=== PATIENT | female | born 1955 | race Hispanic/Latino ===

== ENCOUNTER 2018-07-24 06:55 | Inpatient (IN) | payer OTHER ==
[2018-07-24] MEDS ORDERED: MAGNE/ALUM HYDROXD 30 ML UCUP ONE (07:35)
[2018-07-24] MEDS ORDERED: NA CHLORIDE 0.9% 500 ML ONE (07:35)
[2018-07-24] MEDS ORDERED: LIDOCAINE VISCOUS 2% SOLN 15 ML UDC ONE (07:35)
[2018-07-24] MEDS ORDERED: ONDANSETRON 4 MG/2 ML VIAL ONE (07:35)
[2018-07-24] MEDS ORDERED: MEPERIDINE HCL 25 MG/0.5 ML ONE ×2 (07:43→09:10)
[2018-07-24 07:47] LABS: Absolute Monocytes 0.8 K/uL (0.1-1.3); Absolute Neutrophil 7.1 K/uL (1.8-8.0); Basophils % 0.6 % (0-1.3); Eosinophils % 1.9 % (0-4.4); Hematocrit 45.6 % (36.0-45.0); Lymphocytes % 19.5 % (15.3-44.8); MPV 11.2 fL (7.6-11.3); RBC Red Blood Cell Count 5.14 M/uL (3.86-4.86)
[2018-07-24 08:29] LABS: ALT/SGPT 33 U/L (12-78); AST/SGOT 31 U/L (15-37); Albumin 3.8 g/dL (3.4-5.0); Alkaline Phosphatase 130 U/L (45-117); BUN Blood Urea Nitrogen 12 mg/dL (7-18); Bicarbonate 27 mmol/L (21-32); Bilirubin Direct 0.2 mg/dL (0-0.2); Bilirubin Total 0.5 mg/dL (0.2-1.0); Glucose Level 111 mg/dL (74-106); Potassium 3.7 mmol/L (3.5-5.1); Sodium Level 139 mmol/L (136-145)
[2018-07-24 08:30] LABS: Lipase > 30000 U/L (73-393)
[2018-07-24 08:34] LABS: Urine Blood 1+ (NEG); Urine Glucose NEGATIVE (NEG); Urine Protein NEGATIVE (NEG); Urine pH 5.5 (5.0-7.0)
--- NOTE | 2018-07-24 09:11 | RAD REPORT ---
EXAM DESCRIPTION: CT - Abdomen Pelvis W Contrast - 07/24/2018 8:47 am CLINICAL HISTORY: Abdominal pain, nausea and vomiting COMPARISON: None. TECHNIQUE: Biphasic, helical CT imaging of the abdomen and pelvis was performed following 100 ml non -ionic IV contrast. No oral contrast. All CT scans are performed using dose optimization technique as appropriate and may include automated exposure control or mA/KV adjustment according to patient size. FINDINGS: No suspicious findings in the lung bases. Minimal hiatal hernia is present. Liver and spleen show no suspicious findings. Gallbladder is distended with mild prominence of the ga llbladder pham. Stones can be occult on CT imaging. No biliary tree dilatation identified. Moderate severity peripancreatic fluid and inflammatory stranding are present. No pseudo cyst or natalie d mass of the pancreas identifiable. Fluid is present along the anterior renal fascia and minimally a long the distal duodenum. Symmetric renal function is seen with no hydronephrosis or suspicious renal mass. No pyelonephritis o r acute parenchymal process. No bladder abnormalities. No adrenal abnormality. Uterus is absent. Ovar ies are absent or atrophic. No gastric dilatation or wall thickening. There is minimal secondary involvement of the duodenum. Rem ainder of the small bowel unremarkable. No acute colon process. No free air, free fluid or inflammat ory stranding. No mass or bulky lymphadenopathy. Patient has a small fat only umbilical hernia and a small fat only left inguinal hernia. No suspicious bony findings. IMPRESSION: Moderate severity acute pancreatitis without abscess, mass or pseudocyst identifiable. Mild secondary involvement of the duodenum and possible gallstones. Biliary tree is not dilated.
[2018-07-24] MEDS ORDERED: MORPHINE 4 MG/ML SYR ONE (09:46)
[2018-07-24] MEDS ORDERED: NA CHLORIDE 0.9% 100 ML IV ONE (09:58)
[2018-07-24] MEDS ORDERED: CEFTRIAXONE/SWI 1gm 1 GM/10 ML SYR ONE (09:58)
--- NOTE | 2018-07-24 09:58 | RAD REPORT ---
EXAM DESCRIPTION: US - Abdomen Exam Limited - 07/24/2018 9:29 am CLINICAL HISTORY: Abdominal pain COMPARISON: CT study July 24 FINDINGS: Gallbladder size is normal. Multiple small gallstones are identifiable. There is a small a mount of sludge as well. Common bile duct is 6 mm, normal range, with no common duct stone identified . Gallbladder wall is upper normal. Trace amount of pericholecystic fluid seen. IMPRESSION: Multi stone cholelithiasis with slight wall thickening and trace pericholecystic fluid. No duct stone or biliary tree dilatation identified. Given the pancreatitis findings, gallstone pancr eatitis would be a consideration even if there is nonvisualization of a duct stone.
[2018-07-24] MEDS ORDERED: METRONIDAZOLE 500mg IVPB 500 MG/100 ML BAG IV ONE (09:59)
[2018-07-24] MEDS ORDERED: NA CHLORIDE 0.9% 1,000 ML ONE (10:46)
[2018-07-24] MEDS ORDERED: PROMETHAZINE 25 MG/ML VIAL ONE (11:01)
--- NOTE | 2018-07-24 11:10 | ER ---
Nurse's Notes [facility] Name: Jeannine Michele Age: 62 yrs Sex: Female : 1955 Arrival Date: 07/24/2018 Time: 07:02 Bed 7 Private MD: Diagnosis: Acute pancreatitis;Gallstone pancreatitis Presentation: 07/24 07:03 Presenting complaint: Patient states: upper abd pain with nausea/vomiting x 2 days ago. aa5 07:03 Transition of care: patient was not received from another setting of care. Onset of aa5 symptoms was July 2018. Risk Assessment: Do you want to hurt yourself or someone else? Patient reports no desire to harm self or others. Care prior to arrival: None. 07:03 Method Of Arrival: Ambulatory aa5 07:03 Acuity: MJ 3 aa5 Historical: - Allergies: 07:09 No Known Allergies; aa5 - PMHx: 07:09 Hypertension; aa5 - PSHx: 07:09 Hysterectomy; aa5 - Immunization history:: Adult Immunizations unknown. - Social history:: Smoking status: Patient/guardian denies using tobacco. - Ebola Screening: : No symptoms or risks identified at this time. - Family history:: not pertinent. - Hospitalizations: : No recent hospitalization is reported. Screenin:49 Abuse screen: Denies threats or abuse. Denies injuries from another. Nutritional ch screening: No deficits noted. Tuberculosis screening: No symptoms or risk factors identified. Fall Risk None identified. Assessment: 07:20 General: Appears distressed, uncomfortable, Behavior is cooperative, appropriate for age, anxious, restless. Pain: Complains of pain in epigastric area, right upper quadrant and left upper quadrant Pain radiates to back Pain currently is 10 out of 10 on a pain scale. Pain began gradually, 2-3 days ago. 07:20 Neuro: No deficits noted. Cardiovascular: Heart tones S1 S2 present. Respiratory: Airway is patent Respiratory effort is even, unlabored, Breath sounds are clear bilaterally. GI: Abdomen is obese, Pt is actively vomiting Bowel sounds present X 4 quads. Abd is soft X 4 quads Abdomen is tender to palpation in epigastric area, umbilical area, right upper quadrant and left upper quadrant. : No signs and/or symptoms were reported regarding the genitourinary system. Derm: Skin is intact, Skin is diaphoretic, Skin is pale, Skin temperature is cool. Musculoskeletal: No signs and/or symptoms reported regarding the musculoskeletal system. 07:48 Reassessment: Patient appears in no apparent distress at this time. Patient and/or ch family updated on plan of care and expected duration. Pain level reassessed. Patient is alert, oriented x 3, equal unlabored respirations, skin warm/dry/pink. Patient states feeling better. Patient states symptoms have improved. 08:29 Reassessment: Patient appears in no apparent distress at this time. Patient and/or ch family updated on plan of care and expected duration. Pain level reassessed. Patient is alert, oriented x 3, equal unlabored respirations, skin warm/dry/pink. Patient states feeling better. Patient states symptoms have improved. 09:30 Reassessment: Patient appears in no apparent distress at this time. Patient and/or ch family updated on plan of care and expected duration. Pain level reassessed. pt c/o increase in pain. medicated per orders. 10:01 Reassessment: Patient appears in no apparent distress at this time. Patient and/or ch family updated on plan of care and expected duration. Pain level reassessed. Patient is alert, oriented x 3, equal unlabored respirations, skin warm/dry/pink. pt verb understanding of transfer to hospital with GI Patient states feeling better. 10:41 Reassessment: Patient appears in no apparent distress at this time. Patient and/or ch family updated on plan of care and expected duration. Pain level reassessed. PT MEDICATED FOR BLOOD PRESSURE. PT REQUESTS MORE PAIN MEDICATION, PT BP IS 90/52. erp NOTIFIED, NO NEW ORDERS. NO NARCOTIC WILL BE GIVEN TILL BP IMPROVES. 12:18 Reassessment: Patient appears in no apparent distress at this time. Patient and/or ch family updated on plan of care and expected duration. Pain level reassessed. Patient is alert, oriented x 3, equal unlabored respirations, skin warm/dry/pink. 12:19 Reassessment: Patient appears in no apparent distress at this time. No changes from previously documented assessment. 12:58 Reassessment: Patient appears in no apparent distress at this time. No changes from previously documented assessment. Vital Signs: 07:09 Weight 96.62 kg (R); Pain 9/10; aa5 07:10 BP 156 / 89; Pulse 96; Resp 24; Temp 98.6; Pulse Ox 99% on R/A; Pain 10/10; ch 07:49 BP 110 / 58; Pulse 60; Resp 14; Pulse Ox 99% on R/A; ch 08:30 BP 98 / 71; Pulse 58; Resp 12; Pulse Ox 97% on R/A; Pain 5/10; ch 09:30 BP 127 / 84; Pulse 70; Resp 16; Pulse Ox 97% on R/A; Pain 10/10; ch 10:02 BP 115 / 77; Pulse 56; Resp 12; Temp 99(O); Pulse Ox 95% on R/A; Pain 7/10; ch 10:41 BP 90 / 52; Pulse 64; Resp 18; Temp 98.8(O); Pulse Ox 96% on R/A; Pain 9/10; ch 12:19 BP 110 / 62; Pulse 58; Resp 14; Temp 98.5; Pulse Ox 97% on R/A; Pain 8/10; ch ED Course: 07:02 Patient arrived in ED. rg4 07:03 Arm band placed on Patient placed in an exam room, on a stretcher. aa5 07:04 Lopez Gamble MD is Attending Physician. rn 07:09 Triage completed. aa5 07:20 No provider procedures requiring assistance completed. Inserted saline lock: 20 gauge ch in right forearm, using aseptic technique. Blood collected. 07:23 Janet Munson, RN is Primary Nurse. ch 07:31 Patient has correct armband on for positive identification. Placed in gown. Bed in low mh5 position. Call light in reach. Side rails up X 1. Warm blanket given. Pulse ox on. NIBP on. 07:31 Urine collected: clean catch specimen, clear. mh5 07:35 EKG done, by computer hardware technician. reviewed by Lopez Gamble MD. at1 07:49 Cool cloth applied. Verbal reassurance given. ch 07:51 No apparent distress. Resting quietly. ch 08:47 CT completed. Patient tolerated procedure well. Patient moved to CT via stretcher. jg6 Patient moved back from CT. 08:48 CT Abd/Pelvis - W/Contrast In Process Unspecified. EDMS 09:29 US Abdomen Limited In Process Unspecified. EDMS 09:52 contacted [facility] in attempt to transfer pt, was informed by dandy nobles that they have no beds at this time. 10:24 contacted [facility] in attempt to transfer pt, was informed by roberto loco that they had no beds at this time. 10:39 contacted [facility] in attempt to transfer pt, was informed by nava garcia that bd they have no beds at this time. 11:09 Eron Stokes DO is Hospitalizing Provider. rn 12:46 Inserted. aa5 12:58 Patient admitted, IV remains in place. ch Administered Medications: 07:25 Drug: Zofran 4 mg Route: IVP; Site: right forearm; ch 08:31 Follow up: Response: No adverse reaction; Marked relief of symptoms ch 07:30 Drug: NS 0.9% 500 ml Route: IV; Rate: bolus; Site: right forearm; ch 07:53 Follow up: IV Status: Completed infusion; IV Intake: 500ml ch 07:35 Drug: Demerol 25 mg Route: IVP; Site: right forearm; ch 07:56 Follow up: Response: No adverse reaction; Pain is decreased ch 07:57 Drug: GI Cocktail without - (Maalox Suspension 30 ml, Lidocaine Liquid 2 % 15 ch ml) Route: PO; 08:30 Follow up: Response: No adverse reaction; Marked relief of symptoms ch 09:11 Drug: Demerol 25 mg Route: IVP; Site: right forearm; ch 09:38 Follow up: Response: No adverse reaction; Marked relief of symptoms ch 09:38 Drug: morphine 4 mg Route: IVP; Site: right forearm; ch 10:00 Follow up: Response: No adverse reaction ch 09:59 Drug: Rocephin - (cefTRIAXone) 1 grams Route: IVPB; Infused Over: 30 mins; Site: right ch forearm; 10:32 Follow up: IV Status: Completed infusion; IV Intake: 50ml ch 10:31 Drug: Flagyl 500 mg Volume: 100 ml; Route: IVPB; Rate: 200 ml/hr; Infused Over: 30 ch mins; Site: right forearm; 12:21 Follow up: IV Status: Completed infusion; IV Intake: 1000ml ch 10:41 Drug: NS 0.9% 1000 ml Route: IV; Rate: 1000 ml; Site: right forearm; ch 12:21 Follow up: IV Status: Completed infusion; IV Intake: 100ml ch 10:57 Drug: Phenergan 12.5 mg Route: IVP; Site: right forearm; 12:21 Follow up: Response: No adverse reaction; Marked relief of symptoms ch Intake: 07:53 IV: 500ml; Total: 500ml. ch 10:32 IV: 50ml; Total: 550ml. ch 12:21 IV: 100ml; Total: 650ml. ch 12:21 IV: 1000ml; Total: 1650ml. Outcome: 11:10 Decision to Hospitalize by Provider. rn 12:25 Admitted to Med/surg accompanied by tech, via wheelchair, room 402, with chart, Report ch called to Felicitas Haines 12:25 Condition: stable 12:25 Instructed on the need for admit. 12:58 Patient left the ED. Signatures: Dispatcher [employer] EDMS Pamela Arboleda Christina, RN RN Lopez Gamble MD MD rn Calderon, Audri, RN RN aa5 Roxie Morales, [employer] EKG [facility]1 Akosua Guerrero4 Juju Cartagena 5 Irais Guerrero jg6 Corrections: (The following items were deleted from the chart) 07:51 07:20 No apparent distress. Resting quietly. [facility]
--- NOTE | 2018-07-24 11:10 | EDPHYS ---
Physician Documentation [facility] Name: Jeannine Michele Age: 62 yrs Sex: Female : 1955 Arrival Date: 07/24/2018 Time: 07:02 Bed 7 Private MD: ED Physician Lopez Gamble HPI: 07/24 07:10 This 62 yrs old Female presents to ER via Ambulatory with complaints of rn Abdominal Pain. 07:10 The patient presents with abdominal pain in the upper abdomen. Onset: The rn symptoms/episode began/occurred 2 day(s) ago. The symptoms do not radiate. Associated signs and symptoms: Pertinent positives: nausea and vomiting, diarrhea, Pertinent negatives: blood in stools, chest pain, fever, shortness of breath. Modifying factors: The symptoms are alleviated by nothing, the symptoms are aggravated by touching the area. Severity of pain: At its worst the pain was moderate in the emergency department the pain is unchanged. The patient has experienced similar episodes in the past. The patient has not recently seen a physician. Reports 2-3 days of upper abd pain, assoc with nausea and vomiting, began with diarrhea after started maalox, no fever, reports has had this multiple times in past and has been told is gastritis, reports today is one of the bad episodes, able to keep soup down. Reports has had gallbladder removed in past. . Historical: - Allergies: 07:09 No Known Allergies; aa5 - PMHx: 07:09 Hypertension; aa5 - PSHx: 07:09 Hysterectomy; aa5 - Immunization history:: Adult Immunizations unknown. - Social history:: Smoking status: Patient/guardian denies using tobacco. - Ebola Screening: : No symptoms or risks identified at this time. - Family history:: not pertinent. - Hospitalizations: : No recent hospitalization is reported. ROS: 07:10 Constitutional: Negative for fever, chills, and weight loss, Eyes: Negative for injury, rn pain, redness, and discharge, Cardiovascular: Negative for chest pain, palpitations, and edema, Respiratory: Negative for shortness of breath, cough, wheezing, and pleuritic chest pain, Abdomen/GI: + abd pain and nausea/vomiting/diarrhea MS/Extremity: Negative for injury and deformity, Skin: Negative for injury, rash, and discoloration, Neuro: Negative for headache, weakness, numbness, tingling, and seizure. Exam: 07:10 Constitutional: This is a well developed, well nourished patient who is awake, alert, rn tearful Head/Face: Normocephalic, atraumatic. ENT: MMM Cardiovascular: tachycardic, regular, no murmur Respiratory: Lungs have equal breath sounds bilaterally, clear to auscultation. No increased work of breathing, no retractions or nasal flaring. Abdomen/GI: soft, mild epigastric and RUQ tenderness, no rebound Skin: Warm, dry with normal turgor. Normal color with no rashes, no lesions, and no evidence of cellulitis. MS/ Extremity: Pulses equal, no cyanosis. Neurovascular intact. Full, normal range of motion. Equal circumference. Neuro: Awake and alert, GCS 15, oriented to person, place, time, and situation. Cranial nerves II-XII grossly intact. Motor strength 5/5 in all extremities. Sensory grossly intact. Cerebellar exam normal. Normal gait. Vital Signs: 07:09 Weight 96.62 kg (R); Pain 9/10; aa5 07:10 BP 156 / 89; Pulse 96; Resp 24; Temp 98.6; Pulse Ox 99% on R/A; Pain 10/10; ch 07:49 BP 110 / 58; Pulse 60; Resp 14; Pulse Ox 99% on R/A; ch 08:30 BP 98 / 71; Pulse 58; Resp 12; Pulse Ox 97% on R/A; Pain 5/10; ch 09:30 BP 127 / 84; Pulse 70; Resp 16; Pulse Ox 97% on R/A; Pain 10/10; ch 10:02 BP 115 / 77; Pulse 56; Resp 12; Temp 99(O); Pulse Ox 95% on R/A; Pain 7/10; ch 10:41 BP 90 / 52; Pulse 64; Resp 18; Temp 98.8(O); Pulse Ox 96% on R/A; Pain 9/10; ch 12:19 BP 110 / 62; Pulse 58; Resp 14; Temp 98.5; Pulse Ox 97% on R/A; Pain 8/10; ch MDM: 07:04 Patient medically screened. rn 09:47 ED course: COnsulted with Dr. Cartagena, requests transfer given no GI, and gallstone rn pancreatitis, likely needs ERCP. Abx ordered, pain improved. . 10:27 Differential diagnosis: cholecystitis, Cholelithiasis, non-specific abd pain, rn pancreatitis. Data reviewed: vital signs, nurses notes, lab test result(s), radiologic studies, CT scan, ultrasound, and as a result, I will admit patient. Counseling: I had a detailed discussion with the patient and/or guardian regarding: the historical points, exam findings, and any diagnostic results supporting the discharge/admit diagnosis, lab results, radiology results, the need for further work-up and treatment in the hospital, the need to transfer to another facility, [facility] does not immediately have the required specialist. Response to treatment: the patient's symptoms have mildly improved after treatment, and as a result, I will admit patient. ED course[facility] left message with Dr. Fox here, now trying [facility].. 11:07 ED course: [facility] at capacity, unable to transfer, contacted Dr. Fox who is willing to rn consult on patient, MRCP ordered, notified Dr. Cartagena of admission as well as Dr. Stokes. . 07/24 07:08 Order name: Basic Metabolic Panel; Complete Time: 08:35 rn 07/24 07:08 Order name: CBC with Diff; Complete Time: 07:57 rn 07/24 07:08 Order name: Hepatic Function; Complete Time: 08:35 rn 07/24 07:08 Order name: Lipase; Complete Time: 08:35 rn 07/24 07:32 Order name: Troponin (emerg Dept Use Only); Complete Time: 08:35 rn 07/24 08:02 Order name: Urine Dipstick--Ancillary (enter results); Complete Time: 08:56 bd 07/24 07:08 Order name: CT Abd/Pelvis - W/Contrast; Complete Time: 09:15 rn 07/24 08:02 Order name: Urine --Ancillary (enter results); Complete Time: 08:56 bd 07/24 09:16 Order name: US Abdomen Limited; Complete Time: 10:00 rn 07/24 10:50 Order name: Cholangiogram EDMS 07/24 07:08 Order name: IV Saline Lock; Complete Time: 08:33 rn 07/24 07:08 Order name: Labs collected and sent; Complete Time: 08: rn 07/24 07:08 Order name: EKG; Complete Time: : rn 07/24 07:08 Order name: EKG - Nurse/Tech; Complete Time: 07:53 rn Administered Medications: 07:25 Drug: Zofran 4 mg Route: IVP; Site: right forearm; ch 08:31 Follow up: Response: No adverse reaction; Marked relief of symptoms ch 07:30 Drug: NS 0.9% 500 ml Route: IV; Rate: bolus; Site: right forearm; ch 07:53 Follow up: IV Status: Completed infusion; IV Intake: 500ml ch 07:35 Drug: Demerol 25 mg Route: IVP; Site: right forearm; ch 07:56 Follow up: Response: No adverse reaction; Pain is decreased ch 07:57 Drug: GI Cocktail without - (Maalox Suspension 30 ml, Lidocaine Liquid 2 % 15 ch ml) Route: PO; 08:30 Follow up: Response: No adverse reaction; Marked relief of symptoms ch 09:11 Drug: Demerol 25 mg Route: IVP; Site: right forearm; ch 09:38 Follow up: Response: No adverse reaction; Marked relief of symptoms ch 09:38 Drug: morphine 4 mg Route: IVP; Site: right forearm; ch 10:00 Follow up: Response: No adverse reaction ch 09:59 Drug: Rocephin - (cefTRIAXone) 1 grams Route: IVPB; Infused Over: 30 mins; Site: right ch forearm; 10:32 Follow up: IV Status: Completed infusion; IV Intake: 50ml ch 10:31 Drug: Flagyl 500 mg Volume: 100 ml; Route: IVPB; Rate: 200 ml/hr; Infused Over: 30 ch mins; Site: right forearm; 12:21 Follow up: IV Status: Completed infusion; IV Intake: 1000ml ch 10:41 Drug: NS 0.9% 1000 ml Route: IV; Rate: 1000 ml; Site: right forearm; ch 12:21 Follow up: IV Status: Completed infusion; IV Intake: 100ml ch 10:57 Drug: Phenergan 12.5 mg Route: IVP; Site: right forearm; ch 12:21 Follow up: Response: No adverse reaction; Marked relief of symptoms ch Disposition: 07/24/18 11:10 Hospitalization ordered by Eron Stokes for Inpatient Admission. Preliminary diagnosis are Acute pancreatitis, Gallstone pancreatitis. - Bed requested for Telemetry/MedSurg (Inpatient). - Status is Inpatient Admission. ch - Condition is Stable. - Problem is new. - Symptoms have improved. UTI on Admission? No Signatures: Dispatcher [employer] EDMS Janet Munson RN RN Lopez Gamble MD MD rn Calderon, Audri, RN RN [facility] Nubia Pineda RN RN df Corrections: (The following items were deleted from the chart) 11:31 11:10 Hospitalization Ordered by Eron Stokes DO for Inpatient Admission. Preliminary df diagnosis is Acute pancreatitis; Gallstone pancreatitis. Bed requested for Telemetry/MedSurg (Inpatient). Status is Inpatient Admission. Condition is Stable. Problem is new. Symptoms have improved. UTI on Admission? No. rn 11:42 11:31 07/24/2018 11:10 Hospitalization Ordered by Eron Stokes DO for Inpatient df Admission. Preliminary diagnosis is Acute pancreatitis; Gallstone pancreatitis. Bed requested for Telemetry/MedSurg (Inpatient). Status is Inpatient Admission. Condition is Stable. Problem is new. Symptoms have improved. UTI on Admission? No. df 12:58 11:42 07/24/2018 11:10 Hospitalization Ordered by Eron Stokes DO for Inpatient ch Admission. Preliminary diagnosis is Acute pancreatitis; Gallstone pancreatitis. Bed requested for Telemetry/MedSurg (Inpatient). Status is Inpatient Admission. Condition is Stable. Problem is new. Symptoms have improved. UTI on Admission? No. df
--- NOTE | 2018-07-24 11:36 | P.HP ---
Certification for Inpatient Patient admitted to: Inpatient With expected LOS: >2 Midnights Patient will require the following post-hospital care: None Practitioner: I am a practitioner with admitting privileges, knowledge of patient current condition, hospital course, and medical plan of care. Services: Services provided to patient in accordance with Admission requirements found in Title 42 Section 412.3 of the Code of Federal Regulations Patient History Date of Service: 07/24/18 Primary Care Provider: [facility] in [place], [place] Reason for admission: Abdominal pain, nausea and vomiting History of Present Illness: 62-year-old female presented to the emergency room with abdominal pain , nausea and vomiting. Patient reports abdominal pain to the epigastric and right upper quadrant region. Pain was severe that started last night. She reports pain to the area from time to time over the past several months. She reported increased nausea and vomiting. No fever or chills identified. She was not able to tolerate oral intake. She came to the ER for further evaluation. In the ER patient was evaluated. CT scan shows moderate severity acute pancreatitis without abscess. Mild secondary involvement of the duodenum and possible gallstones identified. Abdominal ultrasound shows multi stone cholelithiasis with slight wall thickening and trace cruz cholecystic fluid. No duct stone or biliary tree dilation identified. MRCP pending. Case discussed at length with surgery and ER physician. Initially the patient was to be transferred due to lack of GI coverage. Transfer was not successful. The case was further discussed with local GI who was not shuttle preparation supervisor. He agreed to evaluate and treat the patient. Therefore transfer will be terminated. Patient to be admitted for further evaluation and treatment. Case discussed with surgery. Home medications list reviewed: Yes - Past Medical/Surgical History Diabetic: Yes -: Diabetes mellitus type 2, non-insulin dependent -: Hypertension -: Obesity -: Hysterectomy Psychosocial/ Personal History: Patient is . She has 3 children. She does not work. - Family History Sister -: Diabetes - Social History Smoking Status: Never smoker Alcohol use: No CD- Drugs: No Caffeine use: Yes Place of Residence: Home Review of Systems General: As per HPI Eyes: Unremarkable ENT: Unremarkable Respiratory: Unremarkable Cardiovascular: Unremarkable Gastrointestinal: Nausea, Vomiting, Abdominal Pain, As per HPI Genitourinary: Unremarkable Musculoskeletal: Unremarkable Integumentary: Unremarkable Neurological: Unremarkable Lymphatics: Unremarkable Physical Examination - Physical Exam General: Alert, Oriented x3, Cooperative, Mild distress HEENT: Atraumatic, Normocephalic, PERRLA, Mucous membr. moist/pink Neck: Supple Respiratory: Clear to auscultation bilaterally, Normal air movement Cardiovascular: Normal pulses, Regular rate/rhythm Gastrointestinal: Normal bowel sounds, Soft and benign, Non-distended, No masses , No rebound, No guarding, Tenderness (Pain to the epigastric and right upper quadrant region) Musculoskeletal: No erythema, No tenderness, No warmth Integumentary: No tenderness/swelling, No erythema, No warmth, No cyanosis Neurological: Normal speech, Normal strength at 5/5 x4 extr, Normal tone, Normal affect - Studies Laboratory Data (last 24 hrs) 07/24/18 07:31: WBC 10.2, Hgb 15.2 H, Hct 45.6 H, Plt Count 269 07/24/18 07:31: Sodium 139, Potassium 3.7, BUN 12, Creatinine 0.77, Glucose 111 H, Total Bilirubin 0.5, AST 31, ALT 33, Alkaline Phosphatase 130 H, Lipase > 56393 H Assessment and Plan - Plan Impression: Epigastric/right upper quadrant abdominal pain, nausea and vomiting with noted multi stone cholelithiasis,cholecystitis, and pancreatitis without abscess, suspect gallstone pancreatitis Diabetes mellitus type 2, qcy-xenrdiy-gxugpvdao Hypertension Obesity GERD with hiatal hernia Plan: Epigastric/right upper quadrant abdominal pain, nausea and vomiting with noted multi stone cholelithiasis,cholecystitis, and pancreatitis without abscess, suspect gallstone pancreatitis: Patient will be admitted for further evaluation and treatment. MRCP is to be obtained. Patient may require ERCP if positive. Case discussed with GI and surgery. Patient to be started on IV antibiotic therapy-Flagyl and Cipro. Blood cultures obtained. Will keep the patient NPO. Will provide medication for pain and nausea. Will continue monitor patient closely. Await MRCP findings. Will monitor electrolytes closely. Will check fasting lipid panel. Await further recommendations from surgery and GI. Diabetes mellitus type 2, ouf-sdxkxzp-ljmiotvtm: Will place on insulin sliding scale. Hypertension: Will provide IV medication as needed. Obesity: Will evaluate BMI. GERD with hiatal hernia: Will continue with Pepcid IV. Discharge Plan: Home Plan to discharge in: Greater than 2 days - Advance Directives Does patient have a Living Will: No Does patient have a Durable POA for Healthcare: No - Code Status/Comfort Care Code Status Assessed: Yes (Patient full code.) Time Spent Managing Pts Care (In Minutes): 55
[2018-07-24] MEDS: INSULIN -REGULAR HUMAN 50 UNIT/0.5 ML ML SQ SCH ×2 (12:57→17:53)
[2018-07-24] MEDS ORDERED: NA CHLORIDE 0.9% 1,000 ML IV SCH (12:57)
[2018-07-24] MEDS ORDERED: HYDRALAZINE HCL 20 MG/ML VIAL IV PRN (12:57)
--- NOTE | 2018-07-24 13:26 | EKG ---
Test Date: 2018-07-24 Test Time: 07:21:48 Bilingual Hr Generalist: YESSY MEASUREMENT RESULTS: Intervals: Rate: 79 AR: 136 QRSD: 76 QT: 382 QTc: 438 Branch: P: 34 AR: 136 QRS: -20 T: -8 INTERPRETIVE STATEMENTS: Normal sinus rhythm Voltage criteria for left ventricular hypertrophy Nonspecific ST and T wave abnormality Abnormal ECG No previous ECG available for comparison Electronically Signed On 07-24-18 13:25:49 PHARMACY TECHNICIAN ASSISTANT by Abraham Redd
[2018-07-24 14:04] LABS: Thyroid Stimulating Hormone 0.47 uIU/mL (0.360-3.740)
--- NOTE | 2018-07-24 14:53 | RAD REPORT ---
EXAM DESCRIPTION: MRI - Cholangiogram - 07/24/2018 2:34 pm CLINICAL HISTORY: evaluate for gallstone pancreatitis COMPARISON: Abdomen Pelvis W Contrast dated 07/24/2018; Abdomen Exam Limited dated 07/24/2018 FINDINGS: Three-dimensional MRCP was performed using maximum intensity projection reconstruction on the same work station. No intrahepatic biliary tree dilatation is seen. The common bile duct is normal caliber without evide nce of retained stone, stricture or mass. The pancreatic duct is not pathologically dilated. Gallbladder contains multiple stones. Limited T2 sequences through the abdomen demonstrates moderate periappendiceal inflammatory changes a nd fluid. . IMPRESSION: Cholelithiasis. No significant biliary tree abnormality. Moderate peripancreatic inflammation and fluid noted.
[2018-07-24] MEDS: MORPHINE 4 MG/ML SYR IV PRN ×3 (15:03→23:26)
[2018-07-24] MEDS: ONDANSETRON 4 MG/2 ML VIAL IV PRN ×2 (15:03→19:00)
[2018-07-24 15:36] LABS: Urine Appearance CLEAR; Urine Bilirubin NEGATIVE (NEG); Urine Blood NEGATIVE (NEG); Urine Color YELLOW; Urine Glucose NEGATIVE (NEG); Urine Protein NEGATIVE (NEG); Urine Urobilinogen 0.2 mg/dL (0.2-1.0)
[2018-07-24 15:41] VITALS: BMI 5680.2
[2018-07-24 15:51] LABS: Urine Microscopic Reflex NO UMIC
[2018-07-24] MEDS: METRONIDAZOLE 500mg IVPB 500 MG/100 ML BAG IV SCH (17:20)
[2018-07-24] MEDS: NA CHLORIDE 0.9% 1,000 ML IV SCH ×2 (19:00→23:25)
[2018-07-24] MEDS ORDERED: MORPHINE 4 MG/ML SYR IV PRN (20:36)
[2018-07-24] MEDS: FAMOTIDINE 20 MG/2 ML VIAL IV SCH (21:03)
[2018-07-24] MEDS: CIPROFLOXACIN 400mg IV 400 MG/200 ML BAG IV SCH (21:04)
[2018-07-25] MEDS: NA CHLORIDE 0.9% 1,000 ML IV SCH ×5 (00:49→21:40)
[2018-07-25] MEDS: METRONIDAZOLE 500mg IVPB 500 MG/100 ML BAG IV SCH ×3 (01:06→16:45)
--- NOTE | 2018-07-25 01:42 | CON ---
Date of Consultation: 07/24/2018 Diagnoses: Epigastric pain and pancreatitis. History Of Present Illness: This is the case of a 62-year-old patient who came this morning complain ing of epigastric pain associated with nausea, vomiting, and diarrhea. She denies any dysuria, hemat uria, hematochezia, or melena. Denies any recent traveling out of the country. Denies any family me mber sick at home. Initially, the patient was having some diarrhea. She took some Maalox, but did n ot improve her condition. Allergies: NONE. Medical History: None. Surgical History: Hysterectomy. Social History: She does not smoke. She does not drink alcohol or use any other drugs. Allergies: NONE. Review of Systems: Ten points otherwise unremarkable. Physical Examination: General: The patient is awake and alert. HEENT: Pupils are equal and reactive, anicteric. Neck: Supple. Chest: Clear. Abdomen: Epigastric tenderness. No guarding. No rebound. Pelvic/Breast/Rectal: Deferred. Extremities: Good capillary refill. Laboratory Data: Blood work shows WBC count of 10.2, hemoglobin of 15.2, and platelets of 269. Chem istry shows total bilirubin normal limits, AST and ALT normal limits. Lipase over 30,000. Glucose 1 57. Imaging Procedures: CAT scan of abdomen and pelvis shows lsnajhgn-gr-acetgo acute pancreatitis witho ut abscess or cyst. The biliary tree is not dilated. MRCP shows cholelithiasis. No evidence of sto ne in the common bile duct. No stricture or masses. Normal-caliber common bile duct as per Dr. Jorge deras. The patient shows pancreatitis. Assessment: This is a 62-year-old patient with pancreatitis of unknown etiology. The patient has bi lirubin normal. The patient has no stones in the common bile duct. We were trying to find out and t rying to rule out with her the differential diagnosis of pancreatitis. She has some stones in the ga llbladder that may be done electively, but no acute evidence of stones in the common bile duct that m ay cause pancreatitis. Whenever the pancreatitis improves with IV hydration and intestinal rest and pancreas rest, then she may consider in the future an elective cholecystectomy. ROWDY/MODL Voice ID: [id number] Report ID: [id number]
[2018-07-25] MEDS: MORPHINE 4 MG/ML SYR IV PRN ×9 (02:02→23:25)
[2018-07-25 04:08] LABS: Absolute Lymphocytes (CBC) 0.5 K/uL (0.7-4.9); Absolute Monocytes 1.2 K/uL (0.1-1.3); Absolute Neutrophil 20.5 K/uL (1.8-8.0); Basophils % 0.2 % (0-1.3); Hematocrit 46.7 % (36.0-45.0); Lymphocytes % 2.1 % (15.3-44.8); MPV 11.2 fL (7.6-11.3); Monocytes % 5.3 % (3.3-12.3); RBC Red Blood Cell Count 5.28 M/uL (3.86-4.86)
[2018-07-25 04:55] LABS: Blood Morphology Comment NOT SEEN (NOT SEEN); Platelet Estimate ADEQ
[2018-07-25 04:56] LABS: ALT/SGPT 39 U/L (12-78); AST/SGOT 22 U/L (15-37); Albumin 3.2 g/dL (3.4-5.0); Alkaline Phosphatase 118 U/L (45-117); BUN Blood Urea Nitrogen 12 mg/dL (7-18); Bicarbonate 27 mmol/L (21-32); Bilirubin Total 0.5 mg/dL (0.2-1.0); Glucose Level 140 mg/dL (74-106); HDL Cholesterol 58 mg/dL (40-60); LDL Cholesterol, Calculated 114 (<130); Lipase 3003 U/L (73-393); Magnesium 2.3 mg/dL (1.8-2.4); Potassium 3.1 mmol/L (3.5-5.1); Protein, Total 6.9 g/dL (6.4-8.2); Sodium Level 141 mmol/L (136-145)
[2018-07-25] MEDS: INSULIN -REGULAR HUMAN 50 UNIT/0.5 ML ML SQ SCH ×4 (06:00→18:00)
[2018-07-25] MEDS: FAMOTIDINE 20 MG/2 ML VIAL IV SCH ×2 (08:00→23:30)
[2018-07-25] MEDS: CIPROFLOXACIN 400mg IV 400 MG/200 ML BAG IV SCH (10:21)
[2018-07-25] MEDS: ONDANSETRON 4 MG/2 ML VIAL IV PRN ×2 (10:30→21:23)
--- NOTE | 2018-07-25 12:48 | RAD REPORT ---
EXAM DESCRIPTION: RAD - Chest Single View - 07/25/2018 12:43 pm CLINICAL HISTORY: Elevated white blood cell count COMPARISON: None. TECHNIQUE: AP portable chest image was obtained 1240 hours . FINDINGS: Lung volumes are low accentuating heart, vasculature and lung markings. Right base opacifi cation is present suspicious for pneumonia. Mild failure or volume overload could be masked. Cardiac silhouette is enlarged by portable technique and shallow inspiration. No pneumothorax or large pleura l effusion. No acute bony abnormality seen. No acute aortic findings suspected. IMPRESSION: Right lung base pneumonia.
--- NOTE | 2018-07-25 13:03 | P.PN ---
Subjective Date of Service: 07/25/18 Primary Care Provider: [facility] in [place], [place] Chief Complaint: Abdominal pain, nausea and vomiting Subjective: Other (Still with pain but improved. Some nausea) Physical Examination - Vital Signs Temperature: 98.8 F Blood Pressure: 146/80 Pulse: 107 Respirations: 18 Pulse Ox (%): 93 - Physical Exam General: Alert, In no apparent distress, Oriented x3, Cooperative HEENT: Atraumatic Neck: Supple Respiratory: Clear to auscultation bilaterally, Normal air movement Cardiovascular: Normal pulses, Regular rate/rhythm Gastrointestinal: Normal bowel sounds, Soft and benign, Non-distended, Tenderness (to the epigastric region) Musculoskeletal: No tenderness, No warmth Integumentary: No erythema, No warmth, No cyanosis Neurological: Normal speech, Normal strength at 5/5 x4 extr, Normal tone, Normal affect - Studies Medications List Reviewed: Yes Assessment & Plan Discharge Plan: Home Plan to discharge in: Greater than 2 days Physician Review Additional Text: Impression: Epigastric/right upper quadrant abdominal pain, nausea and vomiting with noted multi stone cholelithiasis,cholecystitis, and pancreatitis without abscess Right base pneumonia possible aspiration Diabetes mellitus type 2, pea-icdegjs-ziptwfpdb Hypertension Obesity GERD with hiatal hernia Plan: Epigastric/right upper quadrant abdominal pain, nausea and vomiting with noted multi stone cholelithiasis, cholecystitis, and pancreatitis without abscess: Patient slightly improved. Will keep the patient NPO. MRCP reviewed. Will continue with IV fluids. Continue with pain control and medication for nausea. Will discuss further with GI and surgery. Patient currently on Cipro and Flagyl. Continue to monitor lipase. Right base pneumonia suspect aspiration: IV Zosyn added. Will maintain sats above 90%. Will continue to monitor closely. Diabetes mellitus type 2, vof-dvnqjhj-gsjylnoov: Will continue with insulin sliding scale. Hypertension: Will provide IV medication as needed. Obesity: Will evaluate BMI. GERD with hiatal hernia: Will continue with Pepcid IV. Time Spent Managing Pts Care (In Minutes): 55
[2018-07-25] MEDS: PIPER/TAZO/NS 3.375gm 3.375 GM/100 ML BAG IVPB SCH ×2 (13:48→16:46)
[2018-07-25 14:36] LABS: Urine Appearance CLEAR; Urine Blood TRACE (NEG); Urine Color ORANGE; Urine Glucose NEGATIVE (NEG); Urine Protein 1+ (NEG); Urine Specific Gravity >=1.030 (1.005-1.030); Urine Urobilinogen 0.2 mg/dL (0.2-1.0); Urine pH 5.5 (5.0-7.0)
[2018-07-25 14:54] LABS: Urine Bilirubin 1+ (NEG); Urine Microscopic Reflex ORDER UMIC
[2018-07-25 15:02] LABS: Urine Bacteria <20 /HPF (<20)
[2018-07-25 15:03] LABS: Urine Culture Reflex Order NOT NEEDED; Urine Mucus 2+ /HPF (NONE SEEN)
[2018-07-25] MEDS: ENOXAPARIN 40 MG/0.4 ML SQ SCH (16:46)
--- NOTE | 2018-07-25 21:29 | PN ---
Date of Progress Note: 07/25/2018 Diagnosis: Pancreatitis. History Of Present Illness: The patient was doing a little bit better. No vomiting and no fever, al though states some nausea. Physical Examination: General: Awake and alert. HEENT: Pupils anicteric. Neck: Supple. Abdomen: Still epigastric tenderness, a little bit better than yesterday, although it is still there . Extremities: Good capillary refill. Laboratory Data: Blood work shows a decrease in lipase. White blood cell count is elevated. MRCP r shaneiewed with the patient. We have no common bile duct abnormalities to justify any blockage of the p ancreas, at least radiologically per . . Total bilirubin also today is normal. We have some gallstones in the gallbladder, it will be addressed when the pancreatitis is resolved, although we still have to find the etiology of this pancreatitis. We will check for, also from a recent panc reatitis including triglyceride. Once again, she does not smoke. She has not taken . She does not drink alcohol. ROWDY/DAVINA Voice ID: [id number] Report ID: [id number]
[2018-07-26] MEDS: MORPHINE 4 MG/ML SYR IV PRN ×3 (01:53→06:54)
[2018-07-26] MEDS: NA CHLORIDE 0.9% 1,000 ML IV SCH ×5 (01:54→20:19)
[2018-07-26] MEDS: PIPER/TAZO/NS 3.375gm 3.375 GM/100 ML BAG IVPB SCH ×2 (01:54→10:01)
[2018-07-26] MEDS: METRONIDAZOLE 500mg IVPB 500 MG/100 ML BAG IV SCH ×3 (01:54→18:19)
[2018-07-26] MEDS: INSULIN -REGULAR HUMAN 50 UNIT/0.5 ML ML SQ SCH ×4 (06:00→18:00)
[2018-07-26 06:10] LABS: Absolute Lymphocytes (CBC) 0.5 K/uL (0.7-4.9); Absolute Monocytes 1.3 K/uL (0.1-1.3); Absolute Neutrophil 27.9 K/uL (1.8-8.0); Basophils % 0.3 % (0-1.3); Hematocrit 50.4 % (36.0-45.0); Lymphocytes % 1.6 % (15.3-44.8); MPV 10.8 fL (7.6-11.3); Monocytes % 4.2 % (3.3-12.3); RBC Red Blood Cell Count 5.62 M/uL (3.86-4.86)
[2018-07-26] MEDS ORDERED: KETOROLAC 30 MG/ML INJ IV PRN (06:12)
[2018-07-26 06:25] LABS: ALT/SGPT 23 U/L (12-78); AST/SGOT 11 U/L (15-37); Albumin 2.4 g/dL (3.4-5.0); Alkaline Phosphatase 87 U/L (45-117); BUN Blood Urea Nitrogen 17 mg/dL (7-18); Bicarbonate 28 mmol/L (21-32); Bilirubin Total 1.1 mg/dL (0.2-1.0); Glucose Level 130 mg/dL (74-106); Lipase 980 U/L (73-393); Magnesium 2.3 mg/dL (1.8-2.4); Potassium 3.2 mmol/L (3.5-5.1); Protein, Total 5.9 g/dL (6.4-8.2); Sodium Level 136 mmol/L (136-145)
[2018-07-26] MEDS ORDERED: HYDROMORPHONE HCL 1 MG/ML INJ IV ONE (07:00)
[2018-07-26 07:51] LABS: Blood Morphology Comment NOT SEEN (NOT SEEN); Urine White Blood Cell Casts OK
[2018-07-26 07:52] LABS: Platelet Estimate ADEQ
[2018-07-26] MEDS ORDERED: NA CHLORIDE 0.9% 500 ML IV ONE (08:05)
--- NOTE | 2018-07-26 09:43 | P.PN ---
Subjective Date of Service: 07/26/18 Primary Care Provider: [facility] in [place], [place] Chief Complaint: Abdominal pain, nausea and vomiting Subjective: Other (Heart rate slightly elevated this morning. T-max 100.3 yesterday at 8:00 a.m.. Patient with abdominal pain. Patient desires to drink something. No significant nausea vomiting. Increased anxiety.) Physical Examination - Vital Signs Temperature: 97.5 F Blood Pressure: 120/75 Pulse: 155 Respirations: 20 Pulse Ox (%): 90 - Physical Exam General: Alert, In no apparent distress, Oriented x3, Cooperative, Other (Some anxiety noted.) HEENT: Atraumatic, Other (Dry mucous membranes.) Neck: Supple Respiratory: Clear to auscultation bilaterally, Normal air movement Cardiovascular: Abnormal pulses (Sinus tachycardia) Gastrointestinal: Hypoactive, Soft and benign, Non-distended, Tenderness (Pain to the epigastric region) Musculoskeletal: No erythema, No tenderness, No warmth Integumentary: No tenderness/swelling, No erythema, No warmth, No cyanosis Neurological: Normal speech, Normal strength at 5/5 x4 extr, Normal tone, Abnormal affect (Increased anxiety.) Lymphatics: No axilla or inguinal lymphadenopathy - Studies Medications List Reviewed: Yes Assessment & Plan Discharge Plan: Home Plan to discharge in: Greater than 2 days Physician Review Additional Text: Impression: Epigastric/right upper quadrant abdominal pain, nausea and vomiting with noted multi stone cholelithiasis,cholecystitis, and pancreatitis without abscess Right base pneumonia possible aspiration Diabetes mellitus type 2, pft-hlkhwat-fwnphjtcj Hypertension Obesity, BMI 39.5 GERD with hiatal hernia Anxiety Plan: Epigastric/right upper quadrant abdominal pain, nausea and vomiting with noted multi stone cholelithiasis, cholecystitis, and pancreatitis without abscess: Patient with increased pain this morning. Will change morphine to Dilaudid. Heart rate slightly elevated. Will provide 500 saline bolus. Will continue with aggressive IV fluids. Antibiotics adjusted yesterday. Patient now on Zosyn and Flagyl. Case discussed at length with GI today. Since lipase levels improved GI recommends to try ice chips. Will also provide medication for anxiety. Will continue to reassess and monitor closely. Case discussed with patient and family. Will consult infectious disease to further evaluate possible need for IV antibiotic change due to elevated white count. Lactic acid normal. Will follow up on chest x-ray and KUB. Will discuss with surgery as well. Continue with medical management at this time. No surgical intervention recommended at this time as per surgery. Continue to monitor electrolytes and lipase levels. Right base pneumonia suspect aspiration: Patient on IV Zosyn. Will maintain sats above 90%. Will recheck chest x-ray today. Will consult infectious disease for further recommendation. Encourage incentive spirometer. Will continue to monitor closely. Diabetes mellitus type 2, wiw-jkpuufh-lxuhclicn: Will continue with insulin sliding scale. Hypertension: Will provide IV medication as needed. Obesity, BMI 39.5: Will address lifestyle modification education at discharge GERD with hiatal hernia: Will continue with Pepcid IV. Anxiety: Will provide medication as needed. Time Spent Managing Pts Care (In Minutes): 55
[2018-07-26] MEDS: LORazepam 2 MG/ML VIAL IV PRN ×2 (09:56→18:17)
[2018-07-26] MEDS: FAMOTIDINE 20 MG/2 ML VIAL IV SCH ×3 (10:02→20:15)
--- NOTE | 2018-07-26 10:32 | RAD REPORT ---
EXAM DESCRIPTION: Loli Single View07/26/2018 10:22 am CLINICAL HISTORY: Chest pain COMPARISON: July 25 2017 FINDINGS: Mild improvement in a right basilar opacity. Minimal left lung opacity. The heart is kamla l size IMPRESSION: Mild improvement in a right basilar opacity consistent with atelectasis
--- NOTE | 2018-07-26 10:37 | RAD REPORT ---
EXAM DESCRIPTION: RAD - Abdomen 1 View (KUB) - 07/26/2018 10:22 am CLINICAL HISTORY: pancreatitis, evaluate for ileus Pain COMPARISON: Abdomen Pelvis W Contrast dated 07/24/2018 FINDINGS: The bowel gas pattern is non-obstructive. No evidence of free air or pneumatosis. No suspi cious calcifications. No significant bony findings. IMPRESSION: Negative examination.
[2018-07-26] MEDS: HYDROMORPHONE HCL 1 MG/ML INJ IV PRN ×4 (11:49→23:41)
[2018-07-26] MEDS: Meropenem 1,000 MG in NA CHLORIDE 0.9% 100 ML IV SCH ×2 (16:19→23:46)
[2018-07-26] MEDS: ENOXAPARIN 40 MG/0.4 ML SQ SCH (16:22)
[2018-07-26] MEDS ORDERED: Meropenem 1000 MG/VIAL IV SCH (17:00)
--- NOTE | 2018-07-26 17:13 | CON ---
History Of Present Illness: This is a 62-year-old female coming in with pancreatitis. The patient h as significant history of reflux. The patient's initial CT scan showed no abscess and no pseudocyst. Past Medical History: She has significant history of diabetes mellitus, hypertension, obesity, and h ysterectomy. Social History: Nonsmoker, nondrinker. Family History: Noncontributory. Medications: Zosyn and Flagyl. See MARs for other medication. Allergies: NO KNOWN DRUG ALLERGIES. CONTINUES TO HAVE ABDOMINAL DISCOMFORT WITH HIGH WHITE BLOOD CELL COUNT. THE PATIENT DENIES ANY NAUS EA OR VOMITING. SHE HAS BEEN CONSTIPATED FOR LAST 3 DAYS AND UNABLE TO PASS GAS AT THIS TIME. ZANDRA NUES TO HAVE DISCOMFORT AND GETTING DILAUDID FOR THAT. Review of Systems: A 10-point review was performed. Physical Examination: General: This is a 62-year-old lady, lying in the bed, in moderate distress because of abdominal rob n. Vital Signs: Temperature 97.5, pulse 108, respirations 18, and blood pressure 122/73. HEENT: Unremarkable. Neck: Supple. Lungs: Basal crackles. Heart: S1 and S2, regular. Abdomen: Distended. Bowel sounds present, but sluggish. Epigastric tenderness and guarding noted. Extremity: No edema. Laboratory Data: Shows WBC 29,700, hemoglobin 16.2, and platelets are 177. Chemistry shows sodium 1 36, potassium 3.2, chloride 103, bicarb 28, BUN 17, creatinine 0.5, glucose is 130, lipase is 980, pr ocalcitonin is 1.64, albumin is 2.4. Assessment And Plan: Pancreatitis with elevated lipase and leukocytosis, the patient with hypoalbumi nemia with protein calorie malnourishment, obesity, most likely due to obstructive stone. Continue a ntibiotic. We will discontinue Zosyn and start the patient on meropenem. Continue Flagyl and monito r the patient closely. Repeat blood culture. Follow the patient closely. Thank you Dr. Stokes and Dr. Cartagena for consult. NF/MODL Voice ID: [id number] Report ID: [id number]
--- NOTE | 2018-07-26 18:30 | P.PN ---
Subjective Date of Service: 07/26/18 Primary Care Provider: [facility] in [place], [place] Chief Complaint: Abdominal pain, nausea and vomiting, pancreatitis, RLL pneumonia, sepsis Subjective: Improving (CXR today shows clearing / improvement since last night. She still has ARABELLA pain. Family has been trying to get her to use incentive spirometry. ID has been consulted with recs. She reports being very thirsty. Lipase has decreased to < 1,000 (at > 30,000 on admission).) Review of Systems 10-point ROS is otherwise unremarkable Respiratory: Pleuritic Pain Gastrointestinal: Abdominal Pain (slowly improving) Physical Examination - Vital Signs Temperature: 99.0 F Blood Pressure: 131/73 Pulse: 117 Respirations: 20 Pulse Ox (%): 94 - Physical Exam General: Alert, Oriented x3, Cooperative, Disheveled, Mild distress HEENT: Atraumatic, Normocephalic, PERRLA, EOMI Neck: Supple Respiratory: Diminished Cardiovascular: Normal pulses Gastrointestinal: Tenderness (and obese) Neurological: Normal speech, Normal strength at 5/5 x4 extr - Studies Medications List Reviewed: Yes Assessment And Plan - Current Problems (Diagnosis) (1) Gallstone pancreatitis Current Visit: Yes Status: Acute (2) Cholelithiasis Current Visit: Yes Status: Acute (3) Epigastric abdominal pain Current Visit: Yes Status: Acute (4) RLL pneumonia Current Visit: Yes Status: Acute (5) Diabetes mellitus, type 2 Onset Date: 07/25/18 Current Visit: Yes Status: Acute (6) Hypertension Onset Date: 07/25/18 Current Visit: Yes Status: Acute (7) Nausea & vomiting Onset Date: 07/25/18 Current Visit: Yes Status: Acute (8) Right upper quadrant abdominal pain Onset Date: 07/25/18 Current Visit: Yes Status: Acute (9) Sepsis Current Visit: Yes Status: Acute - Plan REC: 1) IV antibiotics as per ID consult 2) monitor labs 3) continue incentive spirometry and f/u CXRs 4) continue IVFs and prn pain medications / anti-emetics 5) allow ice, water, and juice Physician Review Additional Text: Impression: Epigastric/right upper quadrant abdominal pain, nausea and vomiting with noted multi stone cholelithiasis,cholecystitis, and pancreatitis without abscess Right base pneumonia possible aspiration Diabetes mellitus type 2, blc-smxpxng-youmidmrj Hypertension Obesity, BMI 39.5 GERD with hiatal hernia Anxiety Plan: Epigastric/right upper quadrant abdominal pain, nausea and vomiting with noted multi stone cholelithiasis, cholecystitis, and pancreatitis without abscess: Patient with increased pain this morning. Will change morphine to Dilaudid. Heart rate slightly elevated. Will provide 500 saline bolus. Will continue with aggressive IV fluids. Antibiotics adjusted yesterday. Patient now on Zosyn and Flagyl. Case discussed at length with GI today. Since lipase levels improved GI recommends to try ice chips. Will also provide medication for anxiety. Will continue to reassess and monitor closely. Case discussed with patient and family. Will consult infectious disease to further evaluate possible need for IV antibiotic change due to elevated white count. Lactic acid normal. Will follow up on chest x-ray and KUB. Will discuss with surgery as well. Continue with medical management at this time. No surgical intervention recommended at this time as per surgery. Continue to monitor electrolytes and lipase levels. Right base pneumonia suspect aspiration: Patient on IV Zosyn. Will maintain sats above 90%. Will recheck chest x-ray today. Will consult infectious disease for further recommendation. Encourage incentive spirometer. Will continue to monitor closely. Diabetes mellitus type 2, pju-lmlbszi-eiquaonyg: Will continue with insulin sliding scale. Hypertension: Will provide IV medication as needed. Obesity, BMI 39.5: Will address lifestyle modification education at discharge GERD with hiatal hernia: Will continue with Pepcid IV. Anxiety: Will provide medication as needed.
--- NOTE | 2018-07-26 19:37 | PN ---
Date of Progress Note: 07/26/2018 Diagnosis: Pancreatitis. History: The patient feels a little bit better, although is still nauseous with epigastric pain. Et iology of the pancreatitis is still unclear. She does not smoke. She does not drink alcohol. There are no stones in common bile duct. Triglycerides were not elevated. So the medical doctors continu e without treatment. In the meantime, she has some support. Objective: Chest: Bilateral breath sounds. Abdomen: Epigastric tenderness. The rest of the abdomen is soft and depressible. Extremities: Good capillary refill. Laboratory Data: Lipase is still elevated, although better than before. In this case, it is 980 and she came here with more than 30,000. The WBC count though is constant from 22 to 29. Recommendation: I had discussion from the primary doctor and the ID doctor yesterday about the antib iotic coverage, and they believe they are on the right track on those. She has no fever today. She does not look septic either. From the surgical standpoint, the patient will be treated medically. W e have not seen any abscess or cyst before. In the next several hours or days, CAT scan done may jo ann ehow give us some progress on the disease, if clinically she does not improve and the white count jareth ps getting elevated. If pancreas becomes an issue, she may be transferred to a tertiary center to a pancreatic surgeon, if we come to that point. ROWDY/DAVINA Voice ID: [id number] Report ID: [id number]
[2018-07-26] MEDS: HYDROMORPHONE HCL 0.5 MG/0.5 ML INJ IV PRN (20:02)
[2018-07-27] MEDS: METRONIDAZOLE 500mg IVPB 500 MG/100 ML BAG IV SCH ×3 (01:16→17:52)
[2018-07-27] MEDS: LORazepam 2 MG/ML VIAL IV PRN ×2 (02:14→10:57)
[2018-07-27] MEDS: HYDROMORPHONE HCL 1 MG/ML INJ IV PRN ×3 (03:39→21:45)
[2018-07-27] MEDS: NA CHLORIDE 0.9% 1,000 ML IV SCH ×2 (03:48→19:00)
[2018-07-27] MEDS: KETOROLAC 30 MG/ML INJ IV PRN ×2 (05:47→16:19)
[2018-07-27 05:49] LABS: Absolute Lymphocytes (CBC) 0.4 K/uL (0.7-4.9); Basophils % 0.3 % (0-1.3); Hematocrit 39.5 % (36.0-45.0); Lymphocytes % 1.7 % (15.3-44.8); MPV 11.3 fL (7.6-11.3); Monocytes % 4.4 % (3.3-12.3); RBC Red Blood Cell Count 4.42 M/uL (3.86-4.86)
[2018-07-27] MEDS: INSULIN -REGULAR HUMAN 50 UNIT/0.5 ML ML SQ SCH ×4 (06:00→17:55)
[2018-07-27 06:18] LABS: ALT/SGPT 19 U/L (12-78); AST/SGOT 9 U/L (15-37); Albumin 2.2 g/dL (3.4-5.0); Alkaline Phosphatase 74 U/L (45-117); BUN Blood Urea Nitrogen 11 mg/dL (7-18); Bicarbonate 28 mmol/L (21-32); Bilirubin Total 0.7 mg/dL (0.2-1.0); Glucose Level 109 mg/dL (74-106); Lipase 309 U/L (73-393); Magnesium 2.2 mg/dL (1.8-2.4); Potassium 3.1 mmol/L (3.5-5.1); Protein, Total 5.6 g/dL (6.4-8.2); Sodium Level 139 mmol/L (136-145)
--- NOTE | 2018-07-27 08:33 | RAD REPORT ---
EXAM DESCRIPTION: RAD - Chest Single View - 07/27/2018 5:42 am CLINICAL HISTORY: Right-sided PICC line placement A preliminary report was provided at the time of the study and reviewed prior to final report. COMPARISON: July 26 TECHNIQUE: AP portable chest image was obtained 0537 hours . FINDINGS: Lung volumes are low. Bilateral lung base opacification matches comparison. Right-sided PI CC line overlies the right atrium. Cardiac silhouette remains enlarged. No pneumothorax. IMPRESSION: Right-sided PICC line with the tip in the right atrium.
--- NOTE | 2018-07-27 08:34 | RAD REPORT ---
EXAM DESCRIPTION: RAD - Chest Single View - 07/27/2018 7:28 am CLINICAL HISTORY: Right-sided PICC line placement an adjustment COMPARISON: July 27 TECHNIQUE: AP portable chest image was obtained 0719 hours . FINDINGS: Tip of the PICC line is now in the distal SVC. Pleural and parenchymal findings have not c hanged. Heart size has not changed. IMPRESSION: Right upper extremity PICC line with the tip in the distal SVC.
--- NOTE | 2018-07-27 09:21 | P.PN ---
Subjective Date of Service: 07/27/18 Primary Care Provider: [facility] Clinic in [place], [place] Chief Complaint: Abdominal pain, nausea and vomiting, pancreatitis, RLL pneumonia, sepsis Subjective: Improving (No abdominal pain noted. No nausea. She did not sleep well last night. Increased anxiety.) Physical Examination - Vital Signs Temperature: 98.4 F Blood Pressure: 138/90 Pulse: 120 Respirations: 20 Pulse Ox (%): 96 - Physical Exam General: Alert, In no apparent distress, Oriented x3, Cooperative, Other ( Increased anxiety) HEENT: Atraumatic Neck: Supple Respiratory: Clear to auscultation bilaterally, Normal air movement Cardiovascular: Abnormal pulses (Sinus tachycardia mild and improved) Gastrointestinal: Hypoactive (But improved), Soft and benign, Non-distended, No tenderness (No pain noted.), No masses, No rebound, No guarding Musculoskeletal: No erythema, No tenderness, No warmth Integumentary: No tenderness/swelling, No erythema, No warmth, No cyanosis Neurological: Normal speech, Normal strength at 5/5 x4 extr, Normal tone, Abnormal affect (Increased anxiety) - Studies Medications List Reviewed: Yes Assessment & Plan Discharge Plan: Home Plan to discharge in: 72 Hours Physician Review Additional Text: Impression: Epigastric/right upper quadrant abdominal pain, nausea and vomiting with noted multi stone cholelithiasis,cholecystitis, and pancreatitis without abscess Right base pneumonia possible aspiration Diabetes mellitus type 2, [id number] Hypertension Obesity, BMI 39.5 GERD with hiatal hernia Anxiety Plan: Epigastric/right upper quadrant abdominal pain, nausea and vomiting with noted multi stone cholelithiasis, cholecystitis, and pancreatitis without abscess: Patient without pain this morning. Patient has tolerated ice chips. Lipase level within normal range. IV antibiotics adjusted yesterday with improved leukocytosis. Will discuss with GI today about the possibility of advancing her diet to clear liquids. Encourage ambulation and incentive spirometer. Patient now on Meropenem and Flagyl as per infectious disease recommendation. No need for TPN at this time. Will hold off on this. Continue with aggressive IV fluids. Will provide medication for anxiety. Will discuss with surgery. Anticipate improvement over the next 2-4 days. I will turn the service over to Dr. Ingram tomorrow. I will go over the plan of care with her. Right base pneumonia suspect aspiration: Patient on now on IV meropenem and Flagyl as per infectious disease. Will maintain sats above 90%. X-ray showed improvement yesterday. Patient improved. Patient not requiring oxygen. Encourage incentive spirometer. Will continue to monitor closely. Diabetes mellitus type 2, [id number]: Will continue with insulin sliding scale. Hypertension: Will provide IV medication as needed. Obesity, BMI 39.5: Will address lifestyle modification education at discharge GERD with hiatal hernia: Will continue with Pepcid IV. Anxiety: Will provide medication as needed. Time Spent Managing Pts Care (In Minutes): 55
[2018-07-27] MEDS: Meropenem 1,000 MG in NA CHLORIDE 0.9% 100 ML IV SCH ×2 (09:26→17:50)
[2018-07-27] MEDS: FAMOTIDINE 20 MG/2 ML VIAL IV SCH ×2 (09:27→21:45)
[2018-07-27] MEDS ORDERED: IPRATROPIUM BROM 0.5MG/2.5ML NEB PRN (10:59)
[2018-07-27] MEDS ORDERED: NA CHLORIDE 0.9% 1,000 ML IV SCH (12:00)
[2018-07-27] MEDS: HYDROMORPHONE HCL 0.5 MG/0.5 ML INJ IV PRN (12:04)
[2018-07-27] MEDS ORDERED: POTASSIUM CL 40 MEQ in NA CHLORIDE 0.9% 500 ML IV SCH (14:00)
--- NOTE | 2018-07-27 14:20 | P.PN ---
Subjective Date of Service: 07/27/18 Primary Care Provider: [facility] Clinic in [place], [place] Chief Complaint: Abdominal pain, nausea and vomiting, pancreatitis, RLL pneumonia, sepsis Subjective: Improving (Less abdominal pain and less chest pain with deep breathing. She states she is hungry today.) Review of Systems 10-point ROS is otherwise unremarkable Respiratory: Pleuritic Pain (improved) Gastrointestinal: Abdominal Pain (improved) Physical Examination - Vital Signs Temperature: 99.3 F Blood Pressure: 128/76 Pulse: 113 Respirations: 20 Pulse Ox (%): 93 - Physical Exam General: Alert, Oriented x3, Cooperative, Mild distress HEENT: Atraumatic, Normocephalic, PERRLA, EOMI Neck: Supple Respiratory: Diminished Cardiovascular: Normal pulses Gastrointestinal: No rebound, Tenderness (improved), Guarding (improved) Neurological: Normal speech, Normal strength at 5/5 x4 extr - Studies Medications List Reviewed: Yes Assessment And Plan - Current Problems (Diagnosis) (1) Gallstone pancreatitis Current Visit: Yes Status: Acute Comment: Improved. Lipase normal today at 309, on admission at > 30,000 (2) Cholelithiasis Current Visit: Yes Status: Acute (3) Epigastric abdominal pain Current Visit: Yes Status: Acute (4) RLL pneumonia Current Visit: Yes Status: Acute Comment: Improved with decreased chest pain with deep breathing and decreased WBC from 29 to 22K. (5) Diabetes mellitus, type 2 Onset Date: 07/25/18 Current Visit: Yes Status: Acute (6) Hypertension Onset Date: 07/25/18 Current Visit: Yes Status: Acute (7) Nausea & vomiting Onset Date: 07/25/18 Current Visit: Yes Status: Acute Comment: Improved. (8) Right upper quadrant abdominal pain Onset Date: 07/25/18 Current Visit: Yes Status: Acute (9) Sepsis Current Visit: Yes Status: Acute Comment: Improved. - Plan REC: 1) IV antibiotics as per ID consult 2) monitor labs 3) continue incentive spirometry and f/u CXRs 4) continue IVFs and prn pain medications / anti-emetics 5) CL diet Physician Review Additional Text: Impression: Epigastric/right upper quadrant abdominal pain, nausea and vomiting with noted multi stone cholelithiasis,cholecystitis, and pancreatitis without abscess Right base pneumonia possible aspiration Diabetes mellitus type 2, [id number]-[id number] Hypertension Obesity, BMI 39.5 GERD with hiatal hernia Anxiety Plan: Epigastric/right upper quadrant abdominal pain, nausea and vomiting with noted multi stone cholelithiasis, cholecystitis, and pancreatitis without abscess: Patient without pain this morning. Patient has tolerated ice chips. Lipase level within normal range. IV antibiotics adjusted yesterday with improved leukocytosis. Will discuss with GI today about the possibility of advancing her diet to clear liquids. Encourage ambulation and incentive spirometer. Patient now on Meropenem and Flagyl as per infectious disease recommendation. No need for TPN at this time. Will hold off on this. Continue with aggressive IV fluids. Will provide medication for anxiety. Will discuss with surgery. Anticipate improvement over the next 2-4 days. I will turn the service over to Dr. Ingram tomorrow. I will go over the plan of care with her. Right base pneumonia suspect aspiration: Patient on now on IV meropenem and Flagyl as per infectious disease. Will maintain sats above 90%. X-ray showed improvement yesterday. Patient improved. Patient not requiring oxygen. Encourage incentive spirometer. Will continue to monitor closely. Diabetes mellitus type 2, [id number]-[id number]: Will continue with insulin sliding scale. Hypertension: Will provide IV medication as needed. Obesity, BMI 39.5: Will address lifestyle modification education at discharge GERD with hiatal hernia: Will continue with Pepcid IV. Anxiety: Will provide medication as needed.
[2018-07-27] MEDS: KCL 20 MEQ/100 mL IVPB 20 MEQ/100 ML BAG IV SCH ×2 (14:34→17:53)
--- NOTE | 2018-07-27 16:49 | RAD REPORT ---
EXAM DESCRIPTION: RAD - Chest Single View - 07/27/2018 4:18 pm CLINICAL HISTORY: Pneumonia COMPARISON: July 27 TECHNIQUE: AP portable chest image was obtained 1519 hours . FINDINGS: Lung volumes remain low. PICC line has not changed positioning. Bilateral lung base opacif ication is similar to comparison. Findings are worse on the right. No progression from examination ea rlier in the day. Heart and vasculature are normal. No pneumothorax. No acute bony abnormality seen. No acute aortic findings suspected. IMPRESSION: Shallow inspiration chest film with bilateral lung base opacification worse on the right . Findings are stable from earlier in the day.
[2018-07-27] MEDS ORDERED: FUROSEMIDE 20 MG/ 2ML VIAL IV ONE (17:41)
[2018-07-27] MEDS: ACETAMINOPHEN 500 MG TAB PO PRN (17:42)
[2018-07-27] MEDS: ENOXAPARIN 40 MG/0.4 ML SQ SCH (17:50)
[2018-07-27] MEDS: ACETAMINOPHEN 650MG/RECT SUPP PR PRN (17:54)
[2018-07-28] MEDS: NA CHLORIDE 0.9% 1,000 ML IV SCH ×4 (00:44→20:20)
[2018-07-28] MEDS: METRONIDAZOLE 500mg IVPB 500 MG/100 ML BAG IV SCH ×3 (00:44→16:18)
[2018-07-28] MEDS: KCL 20 MEQ/100 mL IVPB 20 MEQ/100 ML BAG IV SCH ×3 (01:05→04:56)
[2018-07-28] MEDS: Meropenem 1,000 MG in NA CHLORIDE 0.9% 100 ML IV SCH ×3 (01:23→16:26)
[2018-07-28] MEDS: HYDROMORPHONE HCL 1 MG/ML INJ IV PRN ×5 (02:12→22:07)
[2018-07-28] MEDS: ACETAMINOPHEN 650MG/RECT SUPP PR PRN (03:27)
[2018-07-28] MEDS: KETOROLAC 30 MG/ML INJ IV PRN ×3 (04:56→20:05)
[2018-07-28] MEDS: INSULIN -REGULAR HUMAN 50 UNIT/0.5 ML ML SQ SCH ×4 (06:00→18:00)
[2018-07-28 06:11] LABS: Absolute Lymphocytes (CBC) 0.5 K/uL (0.7-4.9); Absolute Monocytes 1.3 K/uL (0.1-1.3); Absolute Neutrophil 16.5 K/uL (1.8-8.0); Basophils % 0.1 % (0-1.3); Eosinophils % 0.2 % (0-4.4); Hematocrit 37.1 % (36.0-45.0); Lymphocytes % 2.8 % (15.3-44.8); MPV 11.2 fL (7.6-11.3); Monocytes % 6.9 % (3.3-12.3); RBC Red Blood Cell Count 4.16 M/uL (3.86-4.86)
[2018-07-28 09:48] LABS: ALT/SGPT 16 U/L (12-78); AST/SGOT 8 U/L (15-37); Albumin 2.1 g/dL (3.4-5.0); Alkaline Phosphatase 80 U/L (45-117); BUN Blood Urea Nitrogen 8 mg/dL (7-18); Bicarbonate 27 mmol/L (21-32); Bilirubin Total 0.5 mg/dL (0.2-1.0); Glucose Level 88 mg/dL (74-106); Lipase 73 U/L (73-393); Magnesium 2.4 mg/dL (1.8-2.4); Potassium 3.7 mmol/L (3.5-5.1); Protein, Total 5.7 g/dL (6.4-8.2); Sodium Level 143 mmol/L (136-145)
[2018-07-28] MEDS: FAMOTIDINE 20 MG/2 ML VIAL IV SCH ×2 (10:07→20:05)
[2018-07-28] MEDS: FUROSEMIDE 20 MG/ 2ML VIAL IV SCH ×2 (10:08→16:20)
--- NOTE | 2018-07-28 11:50 | RAD REPORT ---
EXAM DESCRIPTION: RAD - Chest Single View - 07/28/2018 6:12 am CLINICAL HISTORY: follow up pneumonia and pulmonary edema Chest pain. COMPARISON: Chest Single View dated 07/27/2018; Chest Single View dated 07/27/2018; Chest Single View dated 07/27/2018; Chest Single View dated 07/26/2018 FINDINGS: Portable technique limits examination quality. Right subpulmonic pleural effusion is likely present. Atelectasis is present in the left lung base. T he heart is mildly prominent size. No displaced fractures.Overall, no significant change in lung aera tion seen since preceding day's study.
--- NOTE | 2018-07-28 12:56 | RAD REPORT ---
EXAM DESCRIPTION: CT - Abdomen Wo Contrast CLINICAL HISTORY: abdominal pain Abdominal pain COMPARISON: Abdomen Pelvis W Contrast dated 07/24/2018; Cholangiogram dated 07/24/[address] scans are performed using dose optimization technique as appropriate and may includ e automated exposure control or mA/KV adjustment according to patient size. FINDINGS: Minimal left and small right pleural effusion is seen with atelectasis in the right lung b ase. Mild free fluid is seen along the the liver edge. Noncontrast liver assessment shows no gross abnorma lity. The spleen, adrenal glands and kidneys show no gross noncontrast abnormality. Significant infla mmatory fat stranding is seen surrounding the pancreas, compatible with pancreatitis. A well-formed p seudocyst is not identified. No bowel obstruction or free air. No significant adenopathy in the abdomen. No significant bony finding. IMPRESSION: Moderate peripancreatic inflammatory changes suggesting acute pancreatitis. No pseudocys t identified. Small bilateral pleural effusions with trace ascites seen.
--- NOTE | 2018-07-28 14:37 | P.PN ---
Subjective Date of Service: 07/28/18 Primary Care Provider: [facility] Clinic in [place], [place] Chief Complaint: Abdominal pain, nausea and vomiting, pancreatitis, RLL pneumonia, sepsis Patient seen and examined at bedside with RN. Chart reviewed. Case discussed with general surgery at this time. This morning patient complaining of having abdominal distention. Has not had a bowel movement since past 5 days. Currently NPO. Not able to get out of bed due to pain. Patient advised to get out of bed at least 3 times and ambulate to help with pain in the abdomen. Review of Systems 10-point ROS is otherwise unremarkable Physical Examination - Vital Signs Temperature: 98.3 F Blood Pressure: 142/70 Pulse: 116 Respirations: 18 Pulse Ox (%): 94 - Physical Exam General: Alert, Oriented x3, Mild distress HEENT: Atraumatic, PERRLA, EOMI Neck: Supple, JVD not distended Respiratory: Clear to auscultation bilaterally, Normal air movement Cardiovascular: Regular rate/rhythm, Normal S1 S2 Gastrointestinal: Hypoactive, No ascites, Distended, Tenderness Musculoskeletal: No tenderness Integumentary: No rashes Neurological: Normal speech, Normal tone, Normal affect Lymphatics: No axilla or inguinal lymphadenopathy - Studies Medications List Reviewed: Yes Assessment And Plan - Current Problems (Diagnosis) (1) Cholelithiasis with cholecystitis Onset Date: 07/25/18 Current Visit: Yes Status: Acute Plan: Patient with Epigastric/right upper quadrant abdominal pain, nausea and vomiting on admission. Abdominal CT with multi stone cholelithiasis, cholecystitis, and pancreatitis without abscess in the ER. -lipase over 30,000 initially. Elevated white count. Abdominal CT with acute cholecystitis versus gallstone pancreatitis. GI consulted. Appreciated recommendations at this time -currently status post MRCP. No choledocholithiasis. -NPO, IV fluids, IV antibiotics. -general surgery consulted. Appreciated recommendations at this time. -medical management at this time. -today complaining of having some abdominal pain. Will repeat abdominal CT at this time. -continue with pain medication, NPO, aggressive fluids and Flagyl Qualifiers: Cholelithiasis location: gallbladder and bile duct Cholecystitis acuity: acute Biliary obstruction: without biliary obstruction Qualified Code(s): K80.62 - Calculus of gallbladder and bile duct with acute cholecystitis without obstruction (2) Gallstone pancreatitis Current Visit: Yes Status: Acute Plan: Gallstone pancreatitis. Initial abdominal CT with pancreatitis. Negative for any pseudocyst or infection. -initial lipase more than 30,000. Repeat lipase around 309 -currently patient still complaining of having nausea vomiting along with abdominal pain. -will repeat abdominal CT at this time -continue with IV fluids and IV pain management. -no need for TPN at this time. -general surgery consulted. 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 Diabetes mellitus complication status: without complication Qualified Code(s): E11.9 - Type 2 diabetes mellitus without complications; Z79.4 - terminal operator (current) use of insulin (5) Obesity (BMI 35.0-39.9 without comorbidity) Current Visit: Yes Status: Chronic (6) GERD (gastroesophageal reflux disease) Current Visit: Yes Status: Chronic Qualifiers: Esophagitis presence: without esophagitis Qualified Code(s): K21.9 - Gastro -esophageal reflux disease without esophagitis Discharge Plan: Home Plan to discharge in: Greater than 2 days - Code Status/Comfort Care Code Status Assessed: Yes Critical Care: No
[2018-07-28] MEDS: ENOXAPARIN 40 MG/0.4 ML SQ SCH (16:19)
[2018-07-28] MEDS ORDERED: KCL 20 MEQ/100 mL IVPB 20 MEQ/100 ML BAG IV SCH (20:00)
[2018-07-29] MEDS: METRONIDAZOLE 500mg IVPB 500 MG/100 ML BAG IV SCH ×2 (00:34→08:49)
[2018-07-29] MEDS: NA CHLORIDE 0.9% 1,000 ML IV SCH ×3 (01:00→21:00)
[2018-07-29] MEDS: Meropenem 1,000 MG in NA CHLORIDE 0.9% 100 ML IV SCH ×3 (02:01→16:19)
[2018-07-29] MEDS: HYDROMORPHONE HCL 1 MG/ML INJ IV PRN ×6 (02:02→22:22)
[2018-07-29 04:37] LABS: Absolute Lymphocytes (CBC) 0.5 K/uL (0.7-4.9); Absolute Monocytes 1.3 K/uL (0.1-1.3); Absolute Neutrophil 14.7 K/uL (1.8-8.0); Basophils % 0.3 % (0-1.3); Eosinophils % 0.1 % (0-4.4); Hematocrit 35.4 % (36.0-45.0); Lymphocytes % 2.9 % (15.3-44.8); MPV 9.9 fL (7.6-11.3); Monocytes % 7.6 % (3.3-12.3); RBC Red Blood Cell Count 4.01 M/uL (3.86-4.86)
[2018-07-29 05:15] LABS: ALT/SGPT 13 U/L (12-78); AST/SGOT 11 U/L (15-37); Albumin 1.9 g/dL (3.4-5.0); Alkaline Phosphatase 82 U/L (45-117); BUN Blood Urea Nitrogen 8 mg/dL (7-18); Bicarbonate 29 mmol/L (21-32); Bilirubin Total 0.4 mg/dL (0.2-1.0); Glucose Level 98 mg/dL (74-106); Lipase 71 U/L (73-393); Protein, Total 5.5 g/dL (6.4-8.2); Sodium Level 143 mmol/L (136-145)
[2018-07-29 05:21] LABS: Potassium 2.8 mmol/L (3.5-5.1)
[2018-07-29] MEDS: KCL 20 MEQ/100 mL IVPB 20 MEQ/100 ML BAG IV SCH ×5 (05:52→18:26)
[2018-07-29] MEDS: INSULIN -REGULAR HUMAN 50 UNIT/0.5 ML ML SQ SCH ×4 (06:00→18:00)
[2018-07-29] MEDS: KETOROLAC 30 MG/ML INJ IV PRN (08:44)
[2018-07-29] MEDS: FUROSEMIDE 20 MG/ 2ML VIAL IV SCH ×2 (08:50→16:18)
[2018-07-29] MEDS: FAMOTIDINE 20 MG/2 ML VIAL IV SCH ×2 (08:50→21:34)
--- NOTE | 2018-07-29 11:17 | P.PN ---
Subjective Date of Service: 07/29/18 Primary Care Provider: [facility] Clinic in [place], [place] Chief Complaint: Abdominal pain, nausea and vomiting, pancreatitis, RLL pneumonia, sepsis Patient seen and examined at bedside with RN. Chart reviewed. Case discussed with general surgery at this time. doing well overall. Better than Yesterday. BM yesterday and day before Yesterday. Currently NPO. Sitting at the edge of the bed. Patient advised to get out of bed at least 3 times and ambulate to help with pain in the abdomen. Review of Systems 10-point ROS is otherwise unremarkable Physical Examination - Vital Signs Temperature: 99.4 F Blood Pressure: 134/74 Pulse: 104 Respirations: 18 Pulse Ox (%): 96 - Physical Exam General: Alert, In no apparent distress HEENT: Atraumatic, PERRLA, EOMI Neck: Supple, JVD not distended Respiratory: Clear to auscultation bilaterally, Normal air movement Cardiovascular: Regular rate/rhythm, Normal S1 S2 Gastrointestinal: Normal bowel sounds, Tenderness Musculoskeletal: No tenderness Integumentary: No rashes Neurological: Normal speech, Normal tone, Normal affect Lymphatics: No axilla or inguinal lymphadenopathy - Studies Medications List Reviewed: Yes Assessment And Plan - Current Problems (Diagnosis) (1) Cholelithiasis with cholecystitis Onset Date: 07/25/18 Current Visit: Yes Status: Acute Plan: Patient with Epigastric/right upper quadrant abdominal pain, nausea and vomiting on admission. Abdominal CT with multi stone cholelithiasis, cholecystitis, and pancreatitis without abscess in the ER. -lipase over 30,000 initially. Elevated white count. Abdominal CT with acute cholecystitis versus gallstone pancreatitis. Now improved -GI consulted. Appreciated recommendations at this time -currently status post MRCP. No choledocholithiasis. -NPO, IV fluids, IV antibiotics. -general surgery consulted. Appreciated recommendations at this time. -medical management at this time. -Passed gas and having BM -Repeat Abd CT with no worsening. Stable -continue with pain medication, aggressive fluids and Flagyl -Will f.u with Surgery and GI regarding Advancing diet Qualifiers: Cholelithiasis location: gallbladder and bile duct Cholecystitis acuity: acute Biliary obstruction: without biliary obstruction Qualified Code(s): K80.62 - Calculus of gallbladder and bile duct with acute cholecystitis without obstruction (2) Gallstone pancreatitis Current Visit: Yes Status: Acute Plan: Gallstone pancreatitis. Initial abdominal CT with pancreatitis. Negative for any pseudocyst or infection. -initial lipase more than 30,000. Repeat lipase around 309 -currently patient having improvement in her nausea vomiting and abdominal pain. -continue with IV fluids and IV pain management. -no need for TPN at this time. Will advance diet to FLD if okay with GI and surgery. 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 Patient does show marked improvement than yesterday and today. Will continue with IV fluids and antibiotics. Will follow up with GI and surgery regarding advancement of full liquid diet. If patient able to tolerate diet and then will advance to a GI soft. Discharge Plan: Home Plan to discharge in: Greater than 2 days - Code Status/Comfort Care Code Status Assessed: Yes Critical Care: No
[2018-07-29] MEDS: ENOXAPARIN 40 MG/0.4 ML SQ SCH (16:18)
--- NOTE | 2018-07-29 20:49 | PN ---
Subjective: The patient lying in bed, continues to have abdominal discomfort, but feeling slightly b deya. Has bowel movements today. Objective: Vital Signs: Temperature 98.8, pulse 100, respirations 18, blood pressure 140/82. Lungs: Basal crackles. Heart: S1, S2 regular. Abdomen: Soft. Bowel sounds present, tenderness in lower quadrants noted. Laboratory Data: WBC 16,000 down from 29,000, hemoglobin 11.7, platelets are 202. Chemistry shows s odium 143, potassium 2.8, which has been replaced with 3 bags of 20 mEq, chloride 105, bicarb 29, BUN 8, creatinine 0.6, glucose 102. Micro data, cultures are negative. Current Medications: Include meropenem. Assessment And Plan: Pancreatitis, leukocytosis is improving on meropenem, we will continue. CT abd omen done on 07/28 shows moderate peripancreatic inflammatory changes suggesting acute pancreatitis. No pseudocyst identified. A small bilateral pleural effusion with trace ascites noted. Continue an tibiotic and supportive care. We will follow the patient as needed. NF/MODL Voice ID: [id number] Report ID: [id number]
[2018-07-29] MEDS ORDERED: METOPROLOL TARTRATE 5 MG/5 ML INJ IV STA (23:41)
[2018-07-29] MEDS: METOPROLOL TARTRATE 5 MG/5 ML INJ IV SCH (23:45)
[2018-07-29] MEDS ORDERED: NA CHLORIDE 0.9% 250 ML IV ONE (23:56)
[2018-07-30] MEDS: Meropenem 1,000 MG in NA CHLORIDE 0.9% 100 ML IV SCH ×3 (00:16→16:51)
[2018-07-30] MEDS: NA CHLORIDE 0.9% 1,000 ML IV SCH ×4 (00:24→17:00)
[2018-07-30] MEDS: HYDROMORPHONE HCL 1 MG/ML INJ IV PRN (02:22)
[2018-07-30] MEDS: METOPROLOL TARTRATE 5 MG/5 ML INJ IV SCH ×3 (05:57→17:52)
[2018-07-30] MEDS: INSULIN -REGULAR HUMAN 50 UNIT/0.5 ML ML SQ SCH ×4 (05:57→18:00)
[2018-07-30] MEDS: HYDROMORPHONE HCL 0.5 MG/0.5 ML INJ IV PRN ×3 (06:37→21:26)
[2018-07-30] MEDS ORDERED: POTASSIUM CL 60 MEQ in NA CHLORIDE 0.9% 1,000 ML IV ONE (09:00)
[2018-07-30] MEDS: FUROSEMIDE 20 MG/ 2ML VIAL IV SCH ×2 (09:22→16:51)
[2018-07-30] MEDS: FAMOTIDINE 20 MG/2 ML VIAL IV SCH ×2 (09:23→21:27)
[2018-07-30 10:07] LABS: Absolute Lymphocytes (CBC) 0.6 K/uL (0.7-4.9); Absolute Monocytes 1.4 K/uL (0.1-1.3); Absolute Neutrophil 13.4 K/uL (1.8-8.0); Basophils % 0.2 % (0-1.3); Eosinophils % 0.1 % (0-4.4); Hematocrit 36.6 % (36.0-45.0); Lymphocytes % 3.6 % (15.3-44.8); MPV 9.9 fL (7.6-11.3); Monocytes % 8.9 % (3.3-12.3); RBC Red Blood Cell Count 4.13 M/uL (3.86-4.86)
[2018-07-30 10:18] LABS: ALT/SGPT 14 U/L (12-78); AST/SGOT 12 U/L (15-37); Albumin 2.1 g/dL (3.4-5.0); Alkaline Phosphatase 95 U/L (45-117); BUN Blood Urea Nitrogen 5 mg/dL (7-18); Bicarbonate 30 mmol/L (21-32); Bilirubin Total 0.5 mg/dL (0.2-1.0); Glucose Level 102 mg/dL (74-106); Protein, Total 5.9 g/dL (6.4-8.2); Sodium Level 143 mmol/L (136-145)
[2018-07-30 10:26] LABS: Potassium 2.7 mmol/L (3.5-5.1)
[2018-07-30 11:00] LABS: Blood Morphology Comment NOT SEEN (NOT SEEN); Platelet Estimate ADEQ; Toxic Granulation 1+
--- NOTE | 2018-07-30 11:10 | P.PN ---
Subjective Date of Service: 07/30/18 Primary Care Provider: [facility] in [place], [place] Chief Complaint: Abdominal pain, nausea and vomiting, pancreatitis, RLL pneumonia, sepsis Patient seen and examined at bedside with RN. Chart reviewed. Case discussed with general surgery at this time. Doing well overall. No c/o. pain min now. Will advance to CLD today Review of Systems 10-point ROS is otherwise unremarkable Physical Examination - Vital Signs Temperature: 98.5 F Blood Pressure: 140/70 Pulse: 89 Respirations: 18 Pulse Ox (%): 95 - Physical Exam General: Alert, In no apparent distress HEENT: Atraumatic, PERRLA, EOMI Neck: Supple, JVD not distended Respiratory: Clear to auscultation bilaterally, Normal air movement Cardiovascular: Regular rate/rhythm, Normal S1 S2 Gastrointestinal: Normal bowel sounds, No tenderness Musculoskeletal: No tenderness Integumentary: No rashes Neurological: Normal speech, Normal tone, Normal affect Lymphatics: No axilla or inguinal lymphadenopathy - Studies Medications List Reviewed: Yes Assessment And Plan - Current Problems (Diagnosis) (1) Cholelithiasis with cholecystitis Onset Date: 07/25/18 Current Visit: Yes Status: Acute Plan: Patient with Epigastric/right upper quadrant abdominal pain, nausea and vomiting on admission. -Abdominal CT with multi stone cholelithiasis, cholecystitis, and pancreatitis without abscess in the ER. -Now improved -GI consulted. Appreciated recommendations at this time -currently status post MRCP. -No choledocholithiasis. -NPO, IV fluids, IV antibiotics. -general surgery consulted. Appreciated recommendations at this time. -medical management at this time. -Passed gas and having BM -Will advance to CLD today. -Continue with IV fluids and IV meropenum Qualifiers: Cholelithiasis location: gallbladder and bile duct Cholecystitis acuity: acute Biliary obstruction: without biliary obstruction Qualified Code(s): K80.62 - Calculus of gallbladder and bile duct with acute cholecystitis without obstruction (2) Gallstone pancreatitis Current Visit: Yes Status: Acute Plan: Gallstone pancreatitis. Initial abdominal CT with pancreatitis. Negative for any pseudocyst or infection. -initial lipase more than 30,000. Repeat lipase around 309 -currently patient having improvement in her nausea vomiting and abdominal pain. -continue with IV fluids and IV merum -no need for TPN at this time. -Will advance diet to CLD today. (3) Hypertension Onset Date: 07/25/18 Current Visit: Yes Status: Chronic Qualifiers: Hypertension type: essential hypertension Qualified Code(s): I10 - Essential (primary) hypertension (4) Diabetes mellitus, type 2 Onset Date: 07/25/18 Current Visit: Yes Status: Chronic Qualifiers: Diabetes mellitus watermelon inspector insulin use: with group home use Diabetes mellitus complication status: without complication Qualified Code(s): E11.9 - Type 2 diabetes mellitus without complications; Z79.4 - long term care pharmacist (current) use of insulin (5) Obesity (BMI 35.0-39.9 without comorbidity) Current Visit: Yes Status: Chronic (6) GERD (gastroesophageal reflux disease) Current Visit: Yes Status: Chronic Qualifiers: Esophagitis presence: without esophagitis Qualified Code(s): K21.9 - Gastro -esophageal reflux disease without esophagitis - Plan Pending clinical improvement at this time. Patient does show marked improvement than yesterday and today. Will continue with IV fluids and antibiotics. Will advance to CLD today. If patient able to tolerate diet and then will advance to a GI soft. Discharge Plan: Home Plan to discharge in: 48 Hours - Code Status/Comfort Care Code Status Assessed: Yes Critical Care: No
--- NOTE | 2018-07-30 11:13 | P.PN ---
Subjective Date of Service: 07/30/18 Primary Care Provider: [facility] in [place], [place] Chief Complaint: Abdominal pain, nausea and vomiting, pancreatitis, RLL pneumonia, sepsis Subjective: Improving (No abdominal pain /N/V today and no chest pain with deep breathing. WBC continues to decline on IV antibiotic therapy, from 29 to 15K. She is tolerating CLs well and wants more. Lipase is normal at 71 yesterday.) Review of Systems 10-point ROS is otherwise unremarkable General: Other (hungry, wants more food than only CLs) Physical Examination - Vital Signs Temperature: 98.5 F Blood Pressure: 140/70 Pulse: 89 Respirations: 18 Pulse Ox (%): 95 - Physical Exam General: Alert, In no apparent distress, Oriented x3, Cooperative HEENT: Atraumatic, Normocephalic, PERRLA, EOMI Neck: Supple Respiratory: Normal air movement Cardiovascular: Normal pulses Gastrointestinal: Soft and benign, No tenderness, No rebound, No guarding Neurological: Normal speech, Normal strength at 5/5 x4 extr - Studies Medications List Reviewed: Yes Assessment And Plan - Current Problems (Diagnosis) (1) Gallstone pancreatitis Current Visit: Yes Status: Acute (2) Cholelithiasis Current Visit: Yes Status: Acute (3) Epigastric abdominal pain Current Visit: Yes Status: Acute (4) RLL pneumonia Current Visit: Yes Status: Acute (5) Diabetes mellitus, type 2 Onset Date: 07/25/18 Current Visit: Yes Status: Chronic Qualifiers: Qualified Code(s): E11.9 - Type 2 diabetes mellitus without complications; Z79.4 - longterm (current) use of insulin (6) Hypertension Onset Date: 07/25/18 Current Visit: Yes Status: Chronic Qualifiers: Qualified Code(s): I10 - Essential (primary) hypertension (7) Nausea & vomiting Onset Date: 07/25/18 Current Visit: Yes Status: Acute Comment: Improved. (8) Right upper quadrant abdominal pain Onset Date: 07/25/18 Current Visit: Yes Status: Acute (9) Sepsis Current Visit: Yes Status: Acute Comment: Improved. - Plan REC: 1) IV antibiotics as per ID consult 2) monitor labs 3) continue incentive spirometry 4) decrease IVFs and prn pain medications / anti-emetics 5) advance from CL diet to FLs and then to LF/LC diet 6) lap rory as per surgery Physician Review Additional Text: .
--- NOTE | 2018-07-30 13:08 | ECHO ---
HEIGHT: 5 ft 0 in WEIGHT: 202 lb 0 oz DATE OF STUDY: 07/30/[address]: Tisha Ingram MD 2-DIMENSIONAL: YES M.MODE: YES DOPPLER: YES COLOR FLOW: YES TDS: NO PORTABLE: NO DEFINITY: NO BUBBLE STUDY: NO DIAGNOSIS: TACHYCARDIA CARDIAC HISTORY: CATHERIZATION: NO SURGERY: NO PROSTHETIC VALVE: NO PACEMAKER: NO MEASUREMENTS (cm) DIASTOLIC (NORMALS) SYSTOLIC (NORMALS) IVSd 0.9 (0.6-1.2) LA Diam 3.7 (1.9-4.0) LVEF 72% LVIDd 3.8 (3.5-5.7) LVIDs 2.2 (2.0-3.5) %FS 41% LVPWd 1.0 (0.6-1.2) Ao Diam 3.0 (2.0-3.7) 2 DIMENSIONAL ASSESSMENT: RIGHT ATRIUM: NORMAL LEFT ATRIUM: NORMAL RIGHT VENTRICLE: NORMAL LEFT VENTRICLE: NORMAL TRICUSPID VALVE: NORMAL MITRAL VALVE: NORMAL PULMONIC VALVE: NORMAL AORTIC VALVE: NORMAL PERICARDIAL EFFUSION: NONE AORTIC ROOT: NORMAL LEFT VENTRICULAR WALL MOTION: NORMAL DOPPLER/COLOR FLOW: NORMAL COMMENTS: NORMAL 2D ECHOCARDIOGRAM WITH DOPPLER. NO WALL MOTION ABNORMALITY. NO EFFUSION. TECHNOLOGIST: Figueroa DOMINGUEZ
[2018-07-30] MEDS: KETOROLAC 30 MG/ML INJ IV PRN (13:42)
[2018-07-30] MEDS: ENOXAPARIN 40 MG/0.4 ML SQ SCH (16:50)
[2018-07-31] MEDS: Meropenem 1,000 MG in NA CHLORIDE 0.9% 100 ML IV SCH ×2 (00:20→09:39)
[2018-07-31] MEDS: METOPROLOL TARTRATE 5 MG/5 ML INJ IV SCH ×2 (00:21→04:54)
[2018-07-31] MEDS: KCL 20 MEQ/100 mL IVPB 20 MEQ/100 ML BAG IV SCH ×3 (01:22→04:47)
[2018-07-31] MEDS: NA CHLORIDE 0.9% 1,000 ML IV SCH ×2 (01:22→03:00)
[2018-07-31] MEDS: HYDROMORPHONE HCL 0.5 MG/0.5 ML INJ IV PRN (01:28)
[2018-07-31] MEDS ORDERED: D50W 25 GM/50 ML SYRINGE IV PRN (02:47)
[2018-07-31] MEDS ORDERED: GLUCAGON 1 MG/VIAL IM PRN (02:47)
[2018-07-31] MEDS: KETOROLAC 30 MG/ML INJ IV PRN (04:53)
[2018-07-31 05:12] LABS: Absolute Lymphocytes (CBC) 0.8 K/uL (0.7-4.9); Absolute Monocytes 1.4 K/uL (0.1-1.3); Absolute Neutrophil 11.9 K/uL (1.8-8.0); Basophils % 0.4 % (0-1.3); Eosinophils % 0.3 % (0-4.4); Hematocrit 36.3 % (36.0-45.0); Lymphocytes % 5.4 % (15.3-44.8); MPV 9.7 fL (7.6-11.3); Monocytes % 10.1 % (3.3-12.3)
[2018-07-31 05:26] LABS: ALT/SGPT 18 U/L (12-78); AST/SGOT 16 U/L (15-37); Alkaline Phosphatase 104 U/L (45-117); BUN Blood Urea Nitrogen 5 mg/dL (7-18); Bicarbonate 32 mmol/L (21-32); Bilirubin Total 0.4 mg/dL (0.2-1.0); Glucose Level 115 mg/dL (74-106); Potassium 3.4 mmol/L (3.5-5.1); Protein, Total 5.5 g/dL (6.4-8.2); Sodium Level 140 mmol/L (136-145)
--- NOTE | 2018-07-31 07:05 | P.PN ---
Subjective Date of Service: 07/31/18 Primary Care Provider: [facility] Clinic in [place], [place] Chief Complaint: Abdominal pain, nausea and vomiting, pancreatitis, RLL pneumonia, sepsis Subjective: New changes (Now with new onset diarrhea and some mild LLQ pain. Her upper abdominal pain a/w gallstone pancreatitis has resolved. Her pneumonia continues to improve with decreasing WBC now at 14K on IV antibiotics. ) Review of Systems 10-point ROS is otherwise unremarkable Gastrointestinal: Abdominal Pain (changed to LLQ area with new diarrhea), Diarrhea (new) Physical Examination - Vital Signs Temperature: 98.9 F Blood Pressure: 134/66 Pulse: 98 Respirations: 20 Pulse Ox (%): 97 - Physical Exam General: Alert, In no apparent distress, Oriented x3, Cooperative HEENT: Atraumatic, Normocephalic, PERRLA, EOMI, Sclerae nonicteric Neck: Supple Respiratory: Normal air movement Cardiovascular: Normal pulses Gastrointestinal: No rebound, No guarding, Tenderness (LLQ) Neurological: Normal speech, Normal strength at 5/5 x4 extr - Studies Medications List Reviewed: Yes Assessment And Plan - Current Problems (Diagnosis) (1) Gallstone pancreatitis Current Visit: Yes Status: Acute Comment: Improved. (2) Cholelithiasis Current Visit: Yes Status: Acute (3) Epigastric abdominal pain Current Visit: Yes Status: Acute (4) RLL pneumonia Current Visit: Yes Status: Acute (5) Diabetes mellitus, type 2 Onset Date: 07/25/18 Current Visit: Yes Status: Chronic Qualifiers: Diabetes mellitus group home insulin use: with bed bug exterminator use Diabetes mellitus complication status: without complication Qualified Code(s): E11.9 - Type 2 diabetes mellitus without complications; Z79.4 - truck terminal manager (current) use of insulin (6) Hypertension Onset Date: 07/25/18 Current Visit: Yes Status: Chronic Qualifiers: Hypertension type: essential hypertension Qualified Code(s): I10 - Essential (primary) hypertension (7) Nausea & vomiting Onset Date: 07/25/18 Current Visit: Yes Status: Acute Comment: Improved. (8) Right upper quadrant abdominal pain Onset Date: 07/25/18 Current Visit: Yes Status: Acute (9) Sepsis Current Visit: Yes Status: Acute Comment: Improved. - Plan REC: 1) check stool studies 2) monitor labs 3) continue incentive spirometry 4) once stool samples collected, consider Questran 5) advance from FLs to LF/LC diet 6) lap rory as per surgery Physician Review Additional Text: .
[2018-07-31] MEDS: INSULIN -REGULAR HUMAN 50 UNIT/0.5 ML ML SQ SCH ×5 (07:30→20:54)
[2018-07-31] MEDS: FUROSEMIDE 20 MG/ 2ML VIAL IV SCH (09:39)
[2018-07-31] MEDS: FAMOTIDINE 20 MG/2 ML VIAL IV SCH (09:39)
[2018-07-31] MEDS ORDERED: POTASSIUM CL SA 10 MEQ TAB PO ONE ×2 (11:43→19:43)
[2018-07-31] MEDS: metroNIDAZOLE 500 MG TABLET PO SCH ×3 (12:00→23:38)
--- NOTE | 2018-07-31 12:04 | P.PN ---
Subjective Date of Service: 07/31/18 Primary Care Provider: [facility] Clinic in [place], [place] Chief Complaint: Abdominal pain, nausea and vomiting, pancreatitis, RLL pneumonia, sepsis Patient seen and examined at bedside with RN. Chart reviewed. Case discussed with general surgery at this time. Doing well overall. No c/o. pain min now. Will advance to GI soft today Review of Systems 10-point ROS is otherwise unremarkable Physical Examination - Vital Signs Temperature: 98.7 F Blood Pressure: 147/87 Pulse: 83 Respirations: 18 Pulse Ox (%): 97 - Physical Exam General: Alert, In no apparent distress HEENT: Atraumatic, PERRLA, EOMI Neck: Supple, JVD not distended Respiratory: Clear to auscultation bilaterally, Normal air movement Cardiovascular: Regular rate/rhythm, Normal S1 S2 Gastrointestinal: Normal bowel sounds, No tenderness Musculoskeletal: No tenderness Integumentary: No rashes Neurological: Normal speech, Normal tone, Normal affect Lymphatics: No axilla or inguinal lymphadenopathy - Studies Medications List Reviewed: Yes Assessment And Plan - Current Problems (Diagnosis) (1) Cholelithiasis with cholecystitis Onset Date: 07/25/18 Current Visit: Yes Status: Acute Plan: Acute cholecystitis with gallstone pancreatitis -Now improved -GI consulted. Appreciated recommendations at this time -currently status post MRCP. -No choledocholithiasis. -now tolerating CLD, DC fluids and Switch to PO abx -general surgery consulted. Appreciated recommendations at this time. -medical management at this time. -Will f.u on Plans of Inpatient vs outpt Lap Bee -Will advance to GI soft today. Qualifiers: Cholelithiasis location: gallbladder and bile duct Cholecystitis acuity: acute Biliary obstruction: without biliary obstruction Qualified Code(s): K80.62 - Calculus of gallbladder and bile duct with acute cholecystitis without obstruction (2) Gallstone pancreatitis Current Visit: Yes Status: Acute Plan: Gallstone pancreatitis. Initial abdominal CT with pancreatitis. Negative for any pseudocyst or infection. -initial lipase more than 30,000. Repeat lipase around 309 -Tolerating her clear liquid well. -Will advance to a GI soft diet at this time (3) Hypertension Onset Date: 07/25/18 Current Visit: Yes Status: Chronic Qualifiers: Hypertension type: essential hypertension Qualified Code(s): I10 - Essential (primary) hypertension (4) Diabetes mellitus, type 2 Onset Date: 07/25/18 Current Visit: Yes Status: Chronic Qualifiers: Diabetes mellitus tank terminal gauger insulin use: with fdc use Diabetes mellitus complication status: without complication Qualified Code(s): E11.9 - Type 2 diabetes mellitus without complications; Z79.4 - longterm (current) use of insulin (5) Obesity (BMI 35.0-39.9 without comorbidity) Current Visit: Yes Status: Chronic (6) GERD (gastroesophageal reflux disease) Current Visit: Yes Status: Chronic Qualifiers: Esophagitis presence: without esophagitis Qualified Code(s): K21.9 - Gastro -esophageal reflux disease without esophagitis - Plan Pending clinical improvement at this time. Patient does show marked improvement than yesterday and today. Dc IV fluids and switched over to p.o. antibiotics. Advanced to a GI soft diet today. Physician Review Additional Text: .
--- NOTE | 2018-07-31 12:44 | PN ---
Subjective: The patient is lying in bed. Complains of mild discomfort in the belly. Feeling otherw ise okay. Had loose motions also since yesterday. Objective: Vital Signs: Afebrile. Pulse 90, respirations 18. Lungs: Basal crackles. Heart: S1 and S2, regular. Abdomen: Tenderness in the epigastric area. Bowel sounds present. Extremities: Trace edema. Laboratory Data: WBC slightly elevated. Assessment And Plan: Pancreatitis. Leukocytosis. Protein calorie malnourishment. Increase nutriti onal status. Continue antibiotic and supportive care. We will follow the patient as needed. NF/MODL Voice ID: [id number] Report ID: [id number]
[2018-07-31] MEDS: AMYLASE/LIPASE/PROTEASE CAP PO SCH ×3 (13:12→20:54)
[2018-07-31] MEDS: ACETAMINOPHEN 500 MG TAB PO PRN ×2 (13:22→19:13)
[2018-07-31] MEDS: ENOXAPARIN 40 MG/0.4 ML SQ SCH (17:16)
[2018-07-31] MEDS: ONDANSETRON 4 MG/2 ML VIAL IV PRN ×2 (17:17→23:24)
[2018-07-31] MEDS ORDERED: TEMAZEPAM 15 MG CAP PO PRN (20:51)
[2018-07-31] MEDS ORDERED: HYDROCODONE/APAP 10/325 TAB PO PRN (20:51)
[2018-07-31] MEDS: CIPROFLOXACIN HCL 500 MG TAB PO SCH (20:54)
[2018-07-31] MEDS ORDERED: SODIUM CHLORIDE 0.9% 10ML INJ IV PRN (23:27)
[2018-07-31] MEDS ORDERED: PANTOPRAZOLE 40 MG INJ IVP ONE (23:27)
[2018-08-01 04:56] LABS: Absolute Lymphocytes (CBC) 0.7 K/uL (0.7-4.9); Absolute Monocytes 1.3 K/uL (0.1-1.3); Absolute Neutrophil 12.3 K/uL (1.8-8.0); Basophils % 0.4 % (0-1.3); Eosinophils % 0.1 % (0-4.4); Hematocrit 35.9 % (36.0-45.0); Lymphocytes % 4.6 % (15.3-44.8); MPV 9.3 fL (7.6-11.3); Monocytes % 9.1 % (3.3-12.3); RBC Red Blood Cell Count 4.03 M/uL (3.86-4.86)
[2018-08-01 05:14] LABS: ALT/SGPT 18 U/L (12-78); AST/SGOT 18 U/L (15-37); Alkaline Phosphatase 91 U/L (45-117); BUN Blood Urea Nitrogen 4 mg/dL (7-18); Bicarbonate 32 mmol/L (21-32); Bilirubin Total 0.3 mg/dL (0.2-1.0); Glucose Level 137 mg/dL (74-106); Potassium 3.3 mmol/L (3.5-5.1); Protein, Total 5.5 g/dL (6.4-8.2); Sodium Level 142 mmol/L (136-145)
[2018-08-01] MEDS: metroNIDAZOLE 500 MG TABLET PO SCH ×2 (05:38→11:50)
[2018-08-01] MEDS ORDERED: PANTOPRAZOLE 40MG TABLET PO SCH (06:30)
[2018-08-01] MEDS: KCL 20 MEQ/100 mL IVPB 20 MEQ/100 ML BAG IV SCH ×2 (06:55→08:04)
[2018-08-01] MEDS: INSULIN -REGULAR HUMAN 50 UNIT/0.5 ML ML SQ SCH ×2 (07:30→11:30)
[2018-08-01] MEDS: AMYLASE/LIPASE/PROTEASE CAP PO SCH ×2 (08:04→11:50)
[2018-08-01] MEDS ORDERED: AMLODIPINE 10 MG TAB PO SCH (09:00)
[2018-08-01] MEDS ORDERED: METOPROLOL XL 50 MG TAB PO SCH (09:00)
[2018-08-01] MEDS: CIPROFLOXACIN HCL 500 MG TAB PO SCH (09:31)
[2018-08-01 11:01] VITALS: O2SAT 95
[2018-08-01 13:08] VITALS: BP 126/58; TEMP 97.7
--- NOTE | 2018-08-01 16:06 | P.DS ---
Admission Date: 07/24/18 Discharge Date: 08/01/18 Primary Care Provider: [facility] Clinic in [place], [place] Disposition: ROUTINE DISCHARGE Discharge Condition: GOOD Reason for Admission: Abdominal pain, nausea and vomiting, pancreatitis, RLL pneumonia, sepsis Consultations: General surgery GI - Problems (1) Cholelithiasis with cholecystitis Onset Date: 07/25/18 Status: Acute Qualifiers: Cholelithiasis location: gallbladder and bile duct Cholecystitis acuity: acute Biliary obstruction: without biliary obstruction Qualified Code(s): K80.62 - Calculus of gallbladder and bile duct with acute cholecystitis without obstruction (2) Gallstone pancreatitis Status: Acute (3) Hypertension Onset Date: 07/25/18 Status: Chronic Qualifiers: Hypertension type: essential hypertension Qualified Code(s): I10 - Essential (primary) hypertension (4) Diabetes mellitus, type 2 Onset Date: 07/25/18 Status: Chronic Qualifiers: Diabetes mellitus machine long goods helper insulin use: with machine long goods helper use Diabetes mellitus complication status: without complication Qualified Code(s): E11.9 - Type 2 diabetes mellitus without complications; Z79.4 - watermelon inspector (current) use of insulin (5) Obesity (BMI 35.0-39.9 without comorbidity) Status: Chronic (6) GERD (gastroesophageal reflux disease) Status: Chronic Qualifiers: Esophagitis presence: without esophagitis Qualified Code(s): K21.9 - Gastro -esophageal reflux disease without esophagitis Brief History of Present Illness: 62-year-old female presented to the emergency room with abdominal pain , nausea and vomiting. Patient reports abdominal pain to the epigastric and right upper quadrant region. Pain was severe that started last night. She reports pain to the area from time to time over the past several months. She reported increased nausea and vomiting. No fever or chills identified. She was not able to tolerate oral intake. She came to the ER for further evaluation. In the ER patient was evaluated. CT scan shows moderate severity acute pancreatitis without abscess. Mild secondary involvement of the duodenum and possible gallstones identified. Abdominal ultrasound shows multi stone cholelithiasis with slight wall thickening and trace cruz cholecystic fluid. No duct stone or biliary tree dilation identified. MRCP pending. Case discussed at length with surgery and ER physician. Initially the patient was to be transferred due to lack of GI coverage. Transfer was not successful. The case was further discussed with local GI who was not applications support specialist. He agreed to evaluate and treat the patient. Therefore transfer will be terminated. Patient to be admitted for further evaluation and treatment. Case discussed with surgery. Hospital Course: Overall during the hospital stay patient remained stable Patient was initially admitted to the hospital for right upper quadrant pain nausea vomiting. Patient was found to have acute cholecystitis with gallstone pancreatitis. General surgery was consulted along with GI. Patient was started on IV vancomycin and Zosyn while here in the hospital which was switched to IV meropenem here in the hospital. General surgery recommended that medical management to be done at this time due to gallstone pancreatitis. GI at that time recommended MRCP. Patient had MRCP done which was WNL and no gallstone were noted in CBD. Pt was also kept NPO, on IV fluids and pain mgmt. Patient had marked improvement in her abdominal pain and her lipase was trending down as well. Patient then was advanced to a clear liquid diet and was asked to ambulate to help with bowel movement. Patient had a bowel movement here in the hospital and tolerated the liquid diet well. Patient then was advanced to a GI soft which he tolerated well as well. Patient was then started on pancreatic enzyme along with lactobacillus that she was having loose stools most likely from having NPO and just liquid diet. Patient's diarrhea did resolve while here in the hospital. GI and general surgery recommended the patient can be discharged home under stable condition. General surgery will follow up with patient about 1-2 weeks for a possible lap choly on outpatient basis after her pancreatitis has resolved completely. GI are recommended to continue patient on Protonix pancreatic enzyme and Lactobacillus as well. Patient was educated extensively on gallstone pancreatitis along with cholecystitis and continuing on low fat low carb and cholesterol diet. Patient demonstrate understanding and thus was discharged home under stable condition. Patient was prescribed p.o. ciprofloxacin and Flagyl to take for next 10 days. Vital Signs/Physical Exam: Temp Pulse Resp BP Pulse Ox 97.7 F 87 18 126/58 L 97 08/01/18 12:00 08/01/18 12:00 08/01/18 12:00 08/01/18 12:00 08/01/18 12:00 General: Alert, In no apparent distress HEENT: Atraumatic, PERRLA, EOMI Neck: Supple, JVD not distended Respiratory: Clear to auscultation bilaterally, Normal air movement Cardiovascular: Regular rate/rhythm, Normal S1 S2 Gastrointestinal: Normal bowel sounds, No tenderness Musculoskeletal: No tenderness Integumentary: No rashes Neurological: Normal speech, Normal tone, Normal affect Lymphatics: No axilla or inguinal lymphadenopathy Laboratory Data at Discharge: WBC 14.3 K/uL (4.3-10.9) H 08/01/18 04:40 Hgb 11.8 g/dL (12.0-15.0) L 08/01/18 04:40 Hct 35.9 % (36.0-45.0) L 08/01/18 04:40 Plt Count 204 K/uL (152-406) 08/01/18 04:40 Sodium 142 mmol/L (136-145) 08/01/18 04:40 Potassium 3.3 mmol/L (3.5-5.1) L 08/01/18 04:40 BUN 4 mg/dL (7-18) L 08/01/18 04:40 Creatinine 0.29 mg/dL (0.55-1.3) L 08/01/18 04:40 Glucose 137 mg/dL (74-106) H 08/01/18 04:40 Magnesium 2.0 mg/dL (1.8-2.4) 07/29/18 04:30 Total Bilirubin 0.3 mg/dL (0.2-1.0) 08/01/18 04:40 AST 18 U/L (15-37) 08/01/18 04:40 ALT 18 U/L (12-78) 08/01/18 04:40 Alkaline Phosphatase 91 U/L (45-117) 08/01/18 04:40 Triglycerides 72 mg/dL (<150) 07/25/18 03:44 Cholesterol 186 mg/dL (<200) 07/25/18 03:44 HDL Cholesterol 58 mg/dL (40-60) 07/25/18 03:44 Cholesterol/HDL Ratio 3.21 07/25/18 03:44 Lipase 71 U/L (73-393) L 07/29/18 04:30 Home Medications: Amlodipine [Norvasc*] 1 tab PO DAILY 07/24/18 Metoprolol Succinate [Toprol Xl*] 1 tab PO DAILY 07/24/18 Ranitidine [Zantac*] 1 tab PO DAILY 07/24/18 hydroCHLOROthiazide [Hydrochlorothiazide*] 1 tab PO DAILY 07/24/18 Ciprofloxacin/Ciprofloxa HCl [Cipro 500 MG Xr Tablet] 500 mg PO BID #20 tbmp.24hr 08/01/18 Lactobacillus Acidophilus [Acidophilus Lactobacilli] 1 each PO DAILY #30 capsule 08/01/18 Lipase/Protease/Amylase [Omkar Gutierrez 36,000 Units Capsule] 1 each PO DAILY #30 capsule. 08/01/18 Pantoprazole [Protonix Tab*] 40 mg PO DAILYAC #30 tab 08/01/18 metroNIDAZOLE [Flagyl*] 500 mg PO Q8H #30 tablet 08/01/18 New Medications: Ciprofloxacin/Ciprofloxa HCl [Cipro 500 MG Xr Tablet] 500 mg PO BID #20 tbmp.24hr Lactobacillus Acidophilus [Acidophilus Lactobacilli] 1 each PO DAILY #30 capsule Lipase/Protease/Amylase [Omkar Gutierrez 36,000 Units Capsule] 1 each PO DAILY #30 capsule. metroNIDAZOLE [Flagyl*] 500 mg PO Q8H #30 tablet Pantoprazole [Protonix Tab*] 40 mg PO DAILYAC #30 tab Diet: Regular Activity: Ad jeanna Followup: Joni aCrtagena MD [ACTIVE - CAN ADMIT] - (call to schedule appointment) Abhinav Fox MD [ASSOCIATE-ACTIVE - CAN ADMIT] - (call to schedule appointment)
== END 2018-08-01 12:40 | disposition home or self-care (01) | DRG 438 ==
LOC: ER 06:55 → ERHOLD 11:19 → 4TH 12:26
PROVIDERS: ADMIT Family Medicine; ATTEND Family Medicine
PROC: 02HV33Z Insertion of Infusion Device into Superior Vena Cava, Percutaneous Approach (ICD-10-PCS; principal; 2018-07-26)
PROC: B548ZZA Ultrasonography of Superior Vena Cava, Guidance (ICD-10-PCS; 2018-07-26)
DX: K85.10 Biliary acute pancreatitis without necrosis or infection (principal); J69.0 Pneumonitis due to inhalation of food and vomit; A41.9 Sepsis, unspecified organism; K80.00 Calculus of gallbladder with acute cholecystitis without obstruction; E46 Unspecified protein-calorie malnutrition; J81.1 Chronic pulmonary edema; J90 Pleural effusion, not elsewhere classified; R18.8 Other ascites; R11.2 Nausea with vomiting, unspecified; E11.9 Type 2 diabetes mellitus without complications; Z79.84 Long term (current) use of oral hypoglycemic drugs; I10 Essential (primary) hypertension; E66.9 Obesity, unspecified; K21.9 Gastro-esophageal reflux disease without esophagitis; K44.9 Diaphragmatic hernia without obstruction or gangrene; R19.7 Diarrhea, unspecified; Z68.39 Body mass index [BMI] 39.0-39.9, adult; F41.9 Anxiety disorder, unspecified; E88.09 Other disorders of plasma-protein metabolism, not elsewhere classified; Z79.4 Long term (current) use of insulin
CPT/HCPCS: 36415; 71045; 74018; 74150; 74177; 74181; 76705; 80048; 80053; 80061; 80076; 81003; 81015; 81025; 82962; 83605; 83615; 83690; 83735; 84132; 84145; 84439; 84443; 84484; 85025; 87040; 87086; 87088; 87493; 93005; 93306; 96365; 96375; 97162; 97165; 99285; C9113; J0696; J0744; J1170; J1650; J1940; J2175; J2405; J2543; J2550; J7030; Q9967

== ENCOUNTER 2018-10-09 11:28 | Inpatient (IN) | payer OTHER ==
--- OUTSIDE RECORDS SUMMARY | 2018-10-09 11:33 | XMS REPORT | Clinical Summary ---
:1955 Author Organization [facility] Address [address] [place] [id number] Care Team Providers Name Role Phone Asked, No Pcp Primary Care Provider Unavailable Allergies No Known Allergies Medications Medication Sig Dispensed Refills Start End Date Status Date metoprolol succinate XL Take 50 mg by 0 Active (TOPROL-XL) 50 mg 24 hr mouth every tablet morning. amLODIPine (NORVASC) 10 Take 10 mg by 0 Active mg tablet mouth every morning. hydroCHLOROthiazide Take 12.5 mg 0 Active (HYDRODIURIL) 12.5 MG by mouth tablet every morning. omeprazole (PriLOSEC) 40 Take 40 mg by 0 Active MG capsule mouth every morning. Lactobacillus Take by mouth 0 Active acidophilus (PROBIOTIC every ORAL) morning. MULTIVITAMIN ORAL Take by mouth 0 Active daily. qquhyr-ovtlmkol-phiocqo Take by mouth 0 09/14/19 Discontinued (CREON) 36,000-114,000- daily. 19 180,000 unit capsule,delayed release(DR/EC) acetaminophen-codeine Take 1 tablet 30 tablet 0 09/24/19 (TYLENOL WITH CODEINE by mouth 9 19 #3) 300-30 mg per tablet every 4 (four) hours as needed for moderate pain for up to 10 days. Active Problems Problem Noted Date Symptomatic cholelithiasis 09/27/2018 Encounters Date Type Specialty Care Team Description 09/26/2018 Office Visit [facility] [place], Symptomatic cholelithiasis Aaron Coker MD (Primary Dx) 09/13/2018 Surgery [facility] [place], LAPAROSCOPIC Aaron Coker MD CHOLECYSTECTOMY 09/13/2018 Anesthesia Event General Surgery Amparo Pinto APRN 09/13/2018 Hospital Encounter [facility] [place] Symptomatic cholelithiasis Aaron Coker MD 08/30/2018 Pre-Admit Testing Pre-Admission [place], Preop testing ( Primary Dx) Appointment Testing Aaron Coker MD 08/27/2018 Office Visit [facility] [place], Choledocholithiasis ( Primary Dx); Aaron Coker MD Calculus of gallbladder without cholecystitis without obstruction after 10/08/2017 Family History Medical History Relation Name Comments Heart disease Father Hypertension Father Cancer Mother Uterine cancer Mother Relation Name Status Comments Father Mother Social History Tobacco Use Types Packs/Day Years Used Date Never Smoker Smokeless Tobacco: Never Used Alcohol Use Drinks/Week oz/Week Comments Yes very occasional Alcohol Habits Answer Date Recorded How often do you have a drink containing alcohol? Never 08/28/2018 How many drinks containing alcohol do you have on a typical Not asked day when you are drinking? How often do you have six or more drinks on one occasion? Not asked Sex Assigned at Date Recorded Not on file Job Start Date Occupation Industry Not on file Not on file Not on file Travel History Travel Start Travel End No recent travel history available. Last Filed Vital Signs Vital Sign Reading Time Taken Blood Pressure 143/73 09/13/2018 1:55 PM [employer] Pulse 70 09/13/2018 1:55 PM [employer] Temperature 37.1 C (98.8 F) 09/13/2018 1:55 PM [employer] Respiratory Rate 16 09/13/2018 1:55 PM [employer] Oxygen Saturation 95% 09/13/2018 1:55 PM [employer] Inhaled Oxygen Concentration - - Weight 87.1 kg (192 lb 1.6 oz) 09/13/2018 10:01 AM [employer] Height 157.5 cm (5' 2") 09/13/2018 10:01 AM [employer] Body Mass Index 35.14 09/13/2018 10:01 AM [employer] Plan of Treatment Health Maintenance Due Date Last Done Comments CERVICAL CANCER SCREENING 1978 BREAST CANCER SCREENING 11/05/2007 COLON CANCER SCREENING 11/05/2007 SHINGLES VACCINES (#1) 11/05/2007 INFLUENZA VACCINE 02/13/2018 Procedures Procedure Name Priority Date/Time Associated Diagnosis Comments SURGICAL PATHOLOGY Routine 09/13/2018 1:14 Results for this REQUEST PM [employer] procedure are in the results section. CHOLECYSTECTOMY, 09/13/2018 1:00 Symptomatic LAPAROSCOPIC PM [employer] cholelithiasis AL AN ELECTIVE Routine 09/13/2018 11:22 ENDOTRACHEAL AIRWAY AM [employer] Procedure Note - Lakhwinder Montalvo MD - 09/13/2018 11:22 AM [employer] Airway Performed by: Lakhwinder Montalvo MD Authorized by: Lakhwinder Montalvo MD Location: OR Urgency: Elective Difficult Airway: No Preoxygenated with 100% O2: Yes C-spine Precautions Maintained Throughout: Yes Mask Ventilation: Easy mask Final Airway Type: Endotracheal airway Final Endotracheal Airway: ETT Technique Used: Direct laryngoscopy Blade Type: Moore Laryngoscope Blade/Videolaryngoscope Blade Size: 2 ETT Size (mm): 7.0 Measured from: Lips ETT to Lips (cm): 21 Placement Verified by: CO2 detection, direct visualization and equal breath sounds Laryngoscopic view: Grade I - full view of glottis Rapid Sequence Induction (RSI): No Modified RSI: No Number of Attempts at Approach: 1 ESTIMATED GFR Routine 08/30/2018 12:51 PM Results for this [employer] procedure are in the results section. HEPATIC FUNCTION Routine 08/30/2018 12:51 PM Preop testing Results for this PANEL [employer] procedure are in the results section. BASIC METABOLIC PANEL Routine 08/30/2018 12:51 PM Preop testing Results for this [employer] procedure are in the results section. CBC HEMOGRAM Routine 08/30/2018 12:51 PM Preop testing Results for this [employer] procedure are in the results section. after 10/08/2017 Results Surgical pathology request (09/13/2018 1:14 PM [employer]) [facility] DEPARTMENT OF PATHOLOGY AND GENOMIC MEDICINE Surgical pathology report See link below for PDF [facility] DEPARTMENT OF Lab Report PATHOLOGY AND GENOMIC MEDICINE Result status This is Final Report [facility] DEPARTMENT OF for [id number] PATHOLOGY AND GENOMIC MEDICINE Performing Organization Address City/State/Zipcode Phone Number [facility] DEPARTMENT OF PATHOLOGY AND [address] [place] [address] GENOMIC MEDICINE Estimated GFR (08/30/2018 12:51 PM [employer]) Estimated GFR >=90 mL/min/1.73 m2 [facility] Comment: HOSPITAL CatergoryUnitsInterpretation G1 >=90 Normal or high G2 60-89Mildly decreased [id number] to moderately decreased S6w24-15Yfcazxcgdp to severely decreased G4 15-29Severely decreased G5 <15Kidney failure The eGFR was calculated using the Chronic Kidney Disease Epidemiology Collaboration (CKD-EPI) equation. Interpretation is based on recommendations of the National Kidney Foundation-Kidney Disease Outcomes Quality Initiative (NKF-KDOQI) published in 2014. Specimen Plasma specimen Performing Organization Address City/[facility]/Zipcode Phone Number [facility] DEPARTMENT OF PATHOLOGY AND [address] [place], [place] [id number] [place] [id number] CBC hemogram (08/30/2018 12:51 PM [employer]) WBC 6.73 4.50 - 11.00 k/uL [facility] RBC 4.53 4.20 - 5.50 m/uL [facility] HGB 13.5 12.0 - 16.0 g/dL [facility] HCT 41.9 37.0 - 47.0 % [facility] MCV 92.5 82.0 - 100.0 fL [facility] MCH 29.8 27.0 - 34.0 pg [facility] MCHC 32.2 31.0 - 37.0 g/dL [facility] RDW - SD 43.5 37.0 - 55.0 fL [facility] MPV 12.6 8.8 - 13.2 fL [facility] Platelet count 241 150 - 400 k/uL [facility] Nucleated RBC 0.00 /100 WBC [facility] Specimen Blood Performing Organization Address City/[facility] Phone Number [facility] DEPARTMENT OF PATHOLOGY AND [address] [place] [address] [address] Hepatic function panel (08/30/2018 12:51 PM [employer]) Albumin 3.6 3.5 - 5.0 g/dL [facility] Total bilirubin 0.3 0.0 - 1.2 mg/dL [facility] Bilirubin direct <0.2 0.0 - 0.3 mg/dL [facility] Alkaline phosphatase 96 35 - 104 U/L [facility] Protein 7.5 6.3 - 8.3 g/dL [facility] Comment: Platter 4.6-7.0 g/dL 1 week 4.4-7.6 g/dL 7 months-1year5.1-7.3 g/dL 1-2 years5.6-7.5 g/dL >3 years6.0-8.0 g/dL 18-150 6.3-8.3 g/dL ALT 30 5 - 50 U/L [facility] AST 25 10 - 35 U/L [facility] Specimen Plasma specimen Performing Organization Address City/[facility]/Zipcode Phone Number [facility] DEPARTMENT OF PATHOLOGY AND [address] [place] [address] Basic metabolic panel (08/30/2018 12:51 PM [employer]) Sodium 142 135 - 148 mEq/L [facility] Potassium 3.3 (L) 3.5 - 5.0 mEq/L [facility] Chloride 100 98 - 112 mEq/L [facility] CO2 28 24 - 31 mEq/L [facility] Anion gap 14@ANIO 7 - 15 mEq/L [facility] BUN 9 8 - 23 mg/dL [facility] Creatinine 0.52 0.50 - 0.90 mg/dL [facility] Glucose 93 65 - 99 mg/dL [facility] Calcium 9.8 8.8 - 10.2 mg/dL [facility] Specimen Plasma specimen Performing Organization Address City/[facility] Phone Number [facility] DEPARTMENT OF PATHOLOGY AND [address] [place] [phone] after 10/08/2017 Insurance Payer Benefit Plan / Group Subscriber ID Type Phone Address [employer] OPEN ACCESS/NETWORK xxxxxxxxxxx O Advance Directives Patient has advance care planning documents on file. For more information, please contact:[address] [address]
[2018-10-09 14:11] LABS: Absolute Lymphocytes (CBC) 1.6 K/uL (0.7-4.9); Absolute Neutrophil 11.6 K/uL (1.8-8.0); Basophils % 0.6 % (0-1.3); Eosinophils % 0.2 % (0-4.4); Hematocrit 43.7 % (36.0-45.0); MPV 10.9 fL (7.6-11.3); Monocytes % 7.3 % (3.3-12.3); RBC Red Blood Cell Count 4.81 M/uL (3.86-4.86)
[2018-10-09 14:58] LABS: ALT/SGPT 137 U/L (12-78); AST/SGOT 241 U/L (15-37); Albumin 3.4 g/dL (3.4-5.0); Alkaline Phosphatase 131 U/L (45-117); BUN Blood Urea Nitrogen 12 mg/dL (7-18); Bicarbonate 30 mmol/L (21-32); Bilirubin Direct 0.2 mg/dL (0-0.2); Bilirubin Total 0.4 mg/dL (0.2-1.0); Glucose Level 122 mg/dL (74-106); Lipase 48 U/L (73-393); Potassium 3.7 mmol/L (3.5-5.1); Protein, Total 7.1 g/dL (6.4-8.2); Sodium Level 142 mmol/L (136-145)
--- NOTE | 2018-10-09 15:34 | RAD REPORT ---
EXAM DESCRIPTION: CT - Abdomen Pelvis W Contrast - 10/09/2018 3:20 pm CLINICAL HISTORY: Abdominal pain COMPARISON: July 2018 TECHNIQUE: Computed axial tomography of the abdomen pelvis was obtained. 100 cc Isovue-300 was admin istered intravenously. Oral contrast was not requested which limits evaluation of bowel. All CT scans are performed using dose optimization technique as appropriate and may include automated exposure control or mA/KV adjustment according to patient size. FINDINGS: The pancreas is inhomogeneous. Several fluid collections lie adjacent to the pancreas. The largest measures 3 centimeters. These represent pseudocysts. The gallbladder has been removed. The liver, spleen, adrenals and kidneys are unremarkable. There is no evidence of diverticulitis. A small umbilical hernia contains. Small left inguinal hernia contains fat IMPRESSION: Pancreatitis with several pseudocysts. Largest measures 3 centimeters
[2018-10-09] MEDS ORDERED: MORPHINE 4 MG/ML SYR ONE (16:16)
[2018-10-09] MEDS ORDERED: NA CHLORIDE 0.9% 2,000 ML ONE (16:16)
[2018-10-09] MEDS ORDERED: ONDANSETRON 4 MG/2 ML VIAL ONE (16:16)
--- NOTE | 2018-10-09 16:17 | ER ---
Nurse's Notes [facility] Name: Jeannine Michele Age: 62 yrs Sex: Female : 1955 Arrival Date: 10/09/2018 Time: 11:32 Bed 23 Private MD: Diagnosis: Acute pancreatitis Presentation: 10/09 11:34 Presenting complaint: Patient states: epigastric pain and nausea started about an hr sv ago. Transition of care: patient was not received from another setting of care. Onset of symptoms was October 09, 2018 at 10:30. Care prior to arrival: None. 11:34 Method Of Arrival: Ambulatory sv 11:34 Acuity: MJ 3 sv 13:06 Risk Assessment: Do you want to hurt yourself or someone else? Patient reports no ca1 desire to harm self or others. Initial Sepsis Screen: Does the patient meet any 2 criteria? No. Patient's initial sepsis screen is negative. Does the patient have a suspected source of infection? No. Patient's initial sepsis screen is negative. Triage Assessment: 11:34 General: Appears in no apparent distress. uncomfortable, well developed, Behavior is sv calm, cooperative, appropriate for age. Pain: Complains of pain in epigastric area Pain began 1 hour ago. Is intermittent. Neuro: Level of Consciousness is awake, alert, obeys commands, Oriented to person, place, time, situation, Gait is steady. Respiratory: Airway is patent Respiratory effort is even, unlabored, Respiratory pattern is regular, symmetrical. GI: Reports upper abdominal pain, nausea. Historical: - Allergies: 11:35 No Known Allergies; sv - PMHx: 11:35 Hypertension; sv 11:37 Pancreatitis; sv - PSHx: 11:35 Hysterectomy; sv 11:37 Cholecystectomy; sv - Immunization history:: Flu vaccine is up to date. - Social history:: Smoking status: Patient/guardian denies using tobacco. - Ebola Screening: : No symptoms or risks identified at this time. Screenin:02 Abuse screen: Denies threats or abuse. Denies injuries from another. Nutritional ca1 screening: No deficits noted. Tuberculosis screening: No symptoms or risk factors identified. Fall Risk None identified. Assessment: 13:02 General: Appears in no apparent distress. comfortable, Behavior is calm, cooperative, ca1 appropriate for age. Pain: Complains of pain in epigastric area Pain does not radiate. Pain currently is 6 out of 10 on a pain scale. Pain began 4 hours ago. Is intermittent. Neuro: Level of Consciousness is awake, alert, obeys commands, Oriented to person, place, time, situation. Cardiovascular: Heart tones S1 S2 present Capillary refill < 3 seconds Patient's skin is warm and dry. Respiratory: Airway is patent Respiratory effort is even, unlabored, Respiratory pattern is regular, symmetrical, Breath sounds are clear bilaterally. GI: Abdomen is round non-distended, Bowel sounds present X 4 quads. Abd is soft X 4 quads Abdomen is tender to palpation in epigastric area Reports diarrhea, nausea, since this morning. : No deficits noted. No signs and/or symptoms were reported regarding the genitourinary system. EENT: No deficits noted. No signs and/or symptoms were reported regarding the EENT system. Derm: Skin is intact, is healthy with good turgor, Skin is pink, warm \T\ dry. Musculoskeletal: Circulation, motion, and sensation intact. Capillary refill < 3 seconds. 14:00 Reassessment: Patient appears in no apparent distress at this time. Patient and/or ca1 family updated on plan of care and expected duration. Pain level reassessed. Patient is alert, oriented x 3, equal unlabored respirations, skin warm/dry/pink. 15:30 Reassessment: Patient appears in no apparent distress at this time. Patient and/or ca1 family updated on plan of care and expected duration. Pain level reassessed. Patient is alert, oriented x 3, equal unlabored respirations, skin warm/dry/pink. Pt from CT scan. Pending results. 16:35 Reassessment: Patient appears in no apparent distress at this time. Patient and/or ca1 family updated on plan of care and expected duration. Pain level reassessed. Patient is alert, oriented x 3, equal unlabored respirations, skin warm/dry/pink. Awaiting room assignment. 17:46 Reassessment: Patient appears in no apparent distress at this time. Patient and/or ca1 family updated on plan of care and expected duration. Pain level reassessed. Patient is alert, oriented x 3, equal unlabored respirations, skin warm/dry/pink. 17:58 Reassessment: Instructed pt on NPO. Called 2nd floor for report. Nurse will call back. ca1 18:10 Reassessment: Patient appears in no apparent distress at this time. Patient is alert, ca1 oriented x 3, equal unlabored respirations, skin warm/dry/pink. Called report. Put on hold. 18:27 Reassessment: Patient appears in no apparent distress at this time. Patient is alert, ca1 oriented x 3, equal unlabored respirations, skin warm/dry/pink. Family at bedside. Informed of shift change on the floor. 19:30 Reassessment: Patient appears in no apparent distress at this time. Patient and/or ca1 family updated on plan of care and expected duration. Pain level reassessed. Patient is alert, oriented x 3, equal unlabored respirations, skin warm/dry/pink. Vital Signs: 11:35 BP 136 / 69; Pulse 85; Resp 22; Temp 97.6; Pulse Ox 97% ; Weight 87.54 kg; Height 5 ft. sv 2 in. (157.48 cm); Pain 0/10; 13:02 BP 131 / 70; Pulse 64; Resp 19; Pulse Ox 98% on R/A; Pain 6/10; ca1 14:00 BP 133 / 77; Pulse 60; Resp 19; Pulse Ox 96% on R/A; ca1 15:30 BP 142 / 76; Pulse 61; Resp 19; Pulse Ox 98% on R/A; ca1 16:35 BP 137 / 72; Pulse 69; Resp 19; Pulse Ox 98% on R/A; ca1 17:30 BP 130 / 70; Pulse 72; Resp 19; Pulse Ox 97% on R/A; ca1 17:58 BP 142 / 80; Pulse 70; Resp 19; Pulse Ox 97% on R/A; ca1 18:27 BP 130 / 69; Pulse 66; Resp 19; Pulse Ox 97% on R/A; ca1 19:07 BP 122 / 75; Pulse 65; Resp 19; Pulse Ox 96% on R/A; ca1 19:47 BP 128 / 67; Pulse 62; Resp 19; Pulse Ox 96% on R/A; ca1 11:35 Body Mass Index 35.30 (87.54 kg, 157.48 cm) sv ED Course: 11:32 Patient arrived in ED. tw3 11:35 Triage completed. sv 11:36 Arm band placed on. sv 12:59 Carlos Valentin NP is PHCP. pm1 12:59 Carine, Abhinav, MD is Attending Physician. pm1 13:01 Opal Colon, MARYCRUZ is Primary Nurse. ca1 13:02 Patient has correct armband on for positive identification. Placed in gown. Bed in low ca1 position. Call light in reach. Side rails up X 1. Pulse ox on. NIBP on. Warm blanket given. 13:41 EKG done, by laboratory technical specialist. reviewed by Carlos Valentin NP. sm3 13:58 Missed attempt(s): 22 gauge in left antecubital area. lt1 13:59 Missed attempt(s): 22 gauge in right forearm. lt1 14:00 Inserted saline lock: 20 gauge in left antecubital area, using aseptic technique. Blood ca1 collected. 14:35 Lab(s) recollected, by me, sent to lab. 3 14:36 Radiology exam delayed due to lab results not completed at this time. (BUN/Creatinine). sj 15:[address] sj 15:20 CT Abd/Pelvis - W/Contrast: IV contrast only In Process Unspecified. EDMS 16:16 Tisha Ingram MD is Hospitalizing Provider. pm1 16:34 Hospitalizing Provider role handed off by Tisha Ingram MD pm1 16:34 Chelsea Richardson MD is Hospitalizing Provider. pm1 19:47 No provider procedures requiring assistance completed. Patient admitted, IV remains in ca1 place. Administered Medications: 15:57 Drug: NS 0.9% 1000 ml Route: IV; Rate: 1000 ml; Site: left antecubital; ca1 18:04 Follow up: Urine output 300 ml; IV Status: Completed infusion ca1 15:57 Drug: NS 0.9% 1000 ml Route: IV; Rate: 100 ml/hr; Site: left antecubital; ca1 18:06 Follow up: IV Status: Infusion continued upon admission ca1 15:58 Drug: Zofran 4 mg Route: IVP; Site: left antecubital; ca1 18:06 Follow up: Response: No adverse reaction; Nausea is decreased ca1 16:00 Drug: morphine 4 mg Route: IVP; Site: left antecubital; ca1 18:04 Follow up: Response: No adverse reaction ca1 18:06 Follow up: Response: No adverse reaction; Nausea is decreased ca1 18:06 Follow up: Response: Pain is decreased ca1 Output: 18:04 Urine: 300ml; Total: 300ml. ca1 Outcome: 16:16 Decision to Hospitalize by Provider. pm1 19:47 Admitted to Med/surg accompanied by tech, family with patient, via wheelchair, room ca1 210, with chart, Report called to Angelia Wallace RN 19:47 Condition: stable 19:47 Instructed on the need for admit. 19:54 Patient left the ED. ca1 Signatures: Dispatcher [employer] EDHazel Roberts, Delma London RN, Patrick, DAVID PUSHER RUNNER pm1 Yun Walker 3 Marni Francis 3 Daly Perez 3 Opal Colon RN RN ca1 Katherine Otto lt1 Corrections: (The following items were deleted from the chart) 19:48 19:47 Discharged to home via wheelchair, ca1 ca1
--- NOTE | 2018-10-09 16:18 | EDPHYS ---
Physician Documentation [facility] Name: Jeannine Michele Age: 62 yrs Sex: Female : 1955 Arrival Date: 10/09/2018 Time: 11:32 Bed 23 Private MD: ED Physician Abhinav Hawk HPI: 10/09 14:05 This 62 yrs old Female presents to ER via Ambulatory with complaints of pm1 Abdominal Pain. 14:05 The patient presents with abdominal pain in the epigastric area. Onset: The pm1 symptoms/episode began/occurred today. The symptoms do not radiate. Associated signs and symptoms: Pertinent positives: nausea, Pertinent negatives: chest pain, constipation, diarrhea, fever, shortness of breath, vomiting. 14:05 The symptoms are described as crampy, sharp. Modifying factors: The symptoms are pm1 alleviated by nothing, the symptoms are aggravated by nothing. Severity of pain: in the emergency department the pain is actually worse. The patient has experienced similar episodes in the past, a few times. Cholecystectomy 3 weeks ago at [facility]. Historical: - Allergies: 11:35 No Known Allergies; sv - PMHx: 11:35 Hypertension; sv 11:37 Pancreatitis; sv - PSHx: 11:35 Hysterectomy; sv 11:37 Cholecystectomy; sv - Immunization history:: Flu vaccine is up to date. - Social history:: Smoking status: Patient/guardian denies using tobacco. - Ebola Screening: : No symptoms or risks identified at this time. ROS: 14:05 Constitutional: Negative for fever, chills, and weight loss, Eyes: Negative for injury, pm1 pain, redness, and discharge, ENT: Negative for injury, pain, and discharge, Neck: Negative for injury, pain, and swelling, Cardiovascular: Negative for chest pain, palpitations, and edema, Respiratory: Negative for shortness of breath, cough, wheezing, and pleuritic chest pain. 14:05 Back: Negative for injury and pain, : Negative for injury, bleeding, discharge, and swelling, MS/Extremity: Negative for injury and deformity, Skin: Negative for injury, rash, and discoloration, Neuro: Negative for headache, weakness, numbness, tingling, and seizure. 14:05 Abdomen/GI: Positive for abdominal pain, nausea, of the epigastric area, Negative for vomiting, diarrhea, constipation. Exam: 14:05 Constitutional: This is a well developed, well nourished patient who is awake, alert, pm1 and in no acute distress. Head/Face: Normocephalic, atraumatic. Eyes: Pupils equal round and reactive to light, extra-ocular motions intact. Lids and lashes normal. Conjunctiva and sclera are non-icteric and not injected. Cornea within normal limits. Periorbital areas with no swelling, redness, or edema. ENT: Nares patent. No nasal discharge, no septal abnormalities noted. Tympanic membranes are normal and external auditory canals are clear. Oropharynx with no redness, swelling, or masses, exudates, or evidence of obstruction, uvula midline. Mucous membranes moist. Neck: Trachea midline, no thyromegaly or masses palpated, and no cervical lymphadenopathy. Supple, full range of motion without nuchal rigidity, or vertebral point tenderness. No Meningismus. Chest/axilla: Normal chest wall appearance and motion. Nontender with no deformity. No lesions are appreciated. Cardiovascular: Regular rate and rhythm with a normal S1 and S2. No gallops, murmurs, or rubs. Normal PMI, no JVD. No pulse deficits. Respiratory: Lungs have equal breath sounds bilaterally, clear to auscultation and percussion. No rales, rhonchi or wheezes noted. No increased work of breathing, no retractions or nasal flaring. 14:05 Back: No spinal tenderness. No costovertebral tenderness. Full range of motion. Skin: Warm, dry with normal turgor. Normal color with no rashes, no lesions, and no evidence of cellulitis. MS/ Extremity: Pulses equal, no cyanosis. Neurovascular intact. Full, normal range of motion. 14:05 Abdomen/GI: Inspection: abdomen appears normal, Palpation: soft, moderate abdominal tenderness, in the epigastric area, mass, is not appreciated, rebound tenderness, is not appreciated. 14:05 Neuro: Orientation: is normal, Motor: is normal, moves all fours. Vital Signs: 11:35 BP 136 / 69; Pulse 85; Resp 22; Temp 97.6; Pulse Ox 97% ; Weight 87.54 kg; Height 5 ft. sv 2 in. (157.48 cm); Pain 0/10; 13:02 BP 131 / 70; Pulse 64; Resp 19; Pulse Ox 98% on R/A; Pain 6/10; ca1 14:00 BP 133 / 77; Pulse 60; Resp 19; Pulse Ox 96% on R/A; ca1 15:30 BP 142 / 76; Pulse 61; Resp 19; Pulse Ox 98% on R/A; ca1 16:35 BP 137 / 72; Pulse 69; Resp 19; Pulse Ox 98% on R/A; ca1 17:30 BP 130 / 70; Pulse 72; Resp 19; Pulse Ox 97% on R/A; ca1 17:58 BP 142 / 80; Pulse 70; Resp 19; Pulse Ox 97% on R/A; ca1 18:27 BP 130 / 69; Pulse 66; Resp 19; Pulse Ox 97% on R/A; ca1 19:07 BP 122 / 75; Pulse 65; Resp 19; Pulse Ox 96% on R/A; ca1 19:47 BP 128 / 67; Pulse 62; Resp 19; Pulse Ox 96% on R/A; ca1 11:35 Body Mass Index 35.30 (87.54 kg, 157.48 cm) sv MDM: 12:59 Patient medically screened. pm1 16:14 Data reviewed: vital signs. Data interpreted: Pulse oximetry: on room air is 98 %. pm1 Interpretation: normal. Counseling: I had a detailed discussion with the patient and/or guardian regarding: the historical points, exam findings, and any diagnostic results supporting the discharge/admit diagnosis, lab results, radiology results, the need for further work-up and treatment in the hospital. 10/09 13:10 Order name: Basic Metabolic Panel; Complete Time: 15:03 pm1 10/09 13:10 Order name: CBC with Diff; Complete Time: 14:32 pm1 10/09 13:10 Order name: Creatinine for Radiology; Complete Time: 15:03 pm1 10/09 13:10 Order name: Hepatic Function; Complete Time: 15:03 pm1 10/09 13:10 Order name: Lipase; Complete Time: 15:03 pm1 10/09 13:16 Order name: Troponin (emerg Dept Use Only); Complete Time: 15:29 pm1 10/09 13:10 Order name: IV Saline Lock; Complete Time: 13:28 pm1 10/09 13:16 Order name: EKG; Complete Time: 13:16 pm10/09 14:32 Order name: CT Abd/Pelvis - W/Contrast: IV contrast only; Complete Time: 15:45 pm1 10/09 14:40 Order name: Urine Dipstick--Ancillary (enter results) [facility] 10/09 13:10 Order name: Labs collected and sent; Complete Time: 13:28 pm10/09 13:10 Order name: Urine Dipstick-Ancillary (obtain specimen); Complete Time: 14:29 pm10/09 13:16 Order name: EKG - Nurse/Tech; Complete Time: 13:28 pm10/09 14:18 Order name: Labs - recollect needed; Complete Time: 14:36 kj1 Administered Medications: 15:57 Drug: NS 0.9% 1000 ml Route: IV; Rate: 1000 ml; Site: left antecubital; ca1 18:04 Follow up: Urine output 300 ml; IV Status: Completed infusion ca1 15:57 Drug: NS 0.9% 1000 ml Route: IV; Rate: 100 ml/hr; Site: left antecubital; ca1 18:06 Follow up: IV Status: Infusion continued upon admission ca1 15:58 Drug: Zofran 4 mg Route: IVP; Site: left antecubital; ca1 18:06 Follow up: Response: No adverse reaction; Nausea is decreased ca1 16:00 Drug: morphine 4 mg Route: IVP; Site: left antecubital; ca1 18:04 Follow up: Response: No adverse reaction ca1 18:06 Follow up: Response: No adverse reaction; Nausea is decreased ca1 18:06 Follow up: Response: Pain is decreased ca1 Disposition: 10/10 07:31 Co-signature as Attending Physician, Abhinav Hawk MD I agree with the assessment and al plan of care. Disposition: 10/09/18 16:16 Hospitalization ordered by Chelsea Richardson for Inpatient Admission. Preliminary diagnosis is Acute pancreatitis. - Bed requested for Telemetry/MedSurg (Inpatient). - Status is Inpatient Admission. ca1 - Condition is Stable. - Problem is new. - Symptoms have improved. UTI on Admission? No Signatures: Dispatcher [employer] Hazel Mckeon RN RN Carlos Valentin, PRICING COORDINATOR PRICING COORDINATOR pm1 Abhinav Hawk MD MD al Opal Colon RN RN ca1 Erum Schroeder kj1 Corrections: (The following items were deleted from the chart) 10/09 16:34 16:16 Hospitalization Ordered by Tisha Ingram MD for Inpatient Admission. Preliminary pm1 diagnosis is Acute pancreatitis. Bed requested for Telemetry/MedSurg (Inpatient). Status is Inpatient Admission. Condition is Stable. Problem is new. Symptoms have improved. UTI on Admission? No. pm1 17:45 16:34 10/09/2018 16:16 Hospitalization Ordered by Chelsea Richardson MD for Inpatient kj1 Admission. Preliminary diagnosis is Acute pancreatitis. Bed requested for Telemetry/MedSurg (Inpatient). Status is Inpatient Admission. Condition is Stable. Problem is new. Symptoms have improved. UTI on Admission? No. pm1 17:51 14:05 Associated signs and symptoms: Pertinent negatives: pm1 pm1 19:54 17:45 10/09/2018 16:16 Hospitalization Ordered by Chelsea Richardson MD for Inpatient ca1 Admission. Preliminary diagnosis is Acute pancreatitis. Bed requested for Telemetry/MedSurg (Inpatient). Status is Inpatient Admission. Condition is Stable. Problem is new. Symptoms have improved. UTI on Admission? No. kj1
--- NOTE | 2018-10-09 20:20 | EKG ---
Test Date: 2018-10-09 Test Time: 13:27:22 Restaurant Expeditor: YESSY MEASUREMENT RESULTS: Intervals: Rate: 64 MD: 140 QRSD: 84 QT: 422 QTc: 435 Orick: P: 15 MD: 140 QRS: -4 T: 5 INTERPRETIVE STATEMENTS: Normal sinus rhythm Minimal voltage criteria for LVH, may be normal variant Abnormal ECG Compared to ECG 07/24/2018 07:21:48 ST (T wave) deviation no longer present Electronically Signed On 10-09-18 20:19:08 CDT by Abraham Redd
[2018-10-09 20:22] LABS: Urine Blood TRACE (NEG); Urine Glucose NEGATIVE (NEG); Urine Protein NEGATIVE (NEG)
[2018-10-09] MEDS ORDERED: ALBUTEROL 2.5 MG/3 ML NEB SOL NEB PRN (20:25)
[2018-10-09] MEDS ORDERED: ONDANSETRON 4 MG/2 ML VIAL IV PRN (20:25)
[2018-10-09] MEDS: NA CHLORIDE 0.9% 1,000 ML IV SCH (20:39)
[2018-10-09 20:56] VITALS: BMI 35.1
[2018-10-10 05:48] LABS: Absolute Lymphocytes (CBC) 1.4 K/uL (0.7-4.9); Absolute Monocytes 0.5 K/uL (0.1-1.3); Absolute Neutrophil 4.8 K/uL (1.8-8.0); Basophils % 0.7 % (0-1.3); Eosinophils % 2.4 % (0-4.4); Hematocrit 40.6 % (36.0-45.0); Lymphocytes % 20.5 % (15.3-44.8); MPV 10.6 fL (7.6-11.3); Monocytes % 7.1 % (3.3-12.3)
[2018-10-10 06:16] LABS: ALT/SGPT 219 U/L (12-78); AST/SGOT 141 U/L (15-37); Alkaline Phosphatase 138 U/L (45-117); BUN Blood Urea Nitrogen 9 mg/dL (7-18); Bicarbonate 28 mmol/L (21-32); Bilirubin Direct 0.1 mg/dL (0-0.2); Bilirubin Total 0.5 mg/dL (0.2-1.0); Glucose Level 91 mg/dL (74-106); Magnesium 2.4 mg/dL (1.8-2.4); Phosphorus 3.9 mg/dL (2.5-4.9); Potassium 3.6 mmol/L (3.5-5.1); Protein, Total 6.5 g/dL (6.4-8.2); Sodium Level 141 mmol/L (136-145)
[2018-10-10] MEDS ORDERED: KCL 20 MEQ/100 mL IVPB 20 MEQ/100 ML BAG IV SCH (08:00)
[2018-10-10] MEDS: ENOXAPARIN 40 MG/0.4 ML SQ SCH (08:54)
--- NOTE | 2018-10-10 09:37 | P.HP ---
Certification for Inpatient Patient admitted to: Inpatient With expected LOS: >2 Midnights Patient will require the following post-hospital care: None Practitioner: I am a practitioner with admitting privileges, knowledge of patient current condition, hospital course, and medical plan of care. Services: Services provided to patient in accordance with Admission requirements found in Title 42 Section 412.3 of the Code of Federal Regulations Patient History Date of Service: 10/09/18 Reason for admission: Pancreatitis History of Present Illness: Patient is 62-year-old female who came in the hospital with abdominal pain. Patient had epigastric tenderness. Patient also has some nausea. Patient was admitted to the hospital for further evaluation. Patient's CT scan revealed acidosis. Patient has had prior episodes in the past. Patient is admitted to the hospital for further evaluation. Allergies No Known Allergies Allergy (Unverified 07/24/18 12:56) Home Medications: Amlodipine Besylate [Norvasc] 10 mg PO DAILY 10/09/18 Lactobacillus Acidophilus [Acidophilus] 1 cap PO DAILY 10/09/18 Metoprolol Succinate [Toprol Xl*] 50 mg PO DAILY 10/09/18 Omeprazole [Prilosec] 40 mg PO DAILY 10/09/18 hydroCHLOROthiazide [Hydrochlorothiazide*] 12.5 mg PO DAILY 10/09/18 - Past Medical/Surgical History Has patient received pneumonia vaccine in the past: Yes Diabetic: No -: GERD -: Hypertension -: Obesity -: Hysterectomy Psychosocial/ Personal History: Patient is . She has 3 children. She does not work. - Family History Sister Medical History: Diabetes - Social History Smoking Status: Never smoker Alcohol use: No CD- Drugs: No Caffeine use: No Place of Residence: Home Review of Systems 10-point ROS is otherwise unremarkable Physical Examination - Vital Signs Temperature: 98.2 F Blood Pressure: 116/62 Pulse: 55 Respirations: 18 Pulse Ox (%): 97 - Physical Exam General: Alert, In no apparent distress, Oriented x3 HEENT: Atraumatic, PERRLA, Mucous membr. moist/pink, EOMI, Sclerae nonicteric Neck: Supple, 2+ carotid pulse no bruit, No LAD, Without JVD or thyroid abnormality Respiratory: Clear to auscultation bilaterally, Normal air movement Cardiovascular: Regular rate/rhythm, Normal S1 S2, No murmurs Gastrointestinal: Normal bowel sounds, Soft and benign, Non-distended, No rebound, No guarding, Tenderness Musculoskeletal: No tenderness Integumentary: No rashes Neurological: Normal gait, Normal speech, Normal strength at 5/5 x4 extr, Normal tone, Sensation intact, Cranial nerves 3-12 intact, Normal affect Lymphatics: No axilla or inguinal lymphadenopathy - Studies Laboratory Data (last 24 hrs) 10/09/18 14:33: Creatinine 0.60 10/09/18 14:33: Sodium 142, Potassium 3.7, BUN 12, Creatinine 0.64, Glucose 122 H, Total Bilirubin 0.4, AST 241 H, ALT 137 H, Alkaline Phosphatase 131 H, Lipase 48 L 10/09/18 13:58: WBC 14.4 H, Hgb 14.0, Hct 43.7, Plt Count 247 Assessment & Plan - Problems (Diagnosis) (1) Pancreatitis Current Visit: Yes Status: Acute (2) Pancreatic pseudocyst Current Visit: Yes Status: Acute (3) Diabetes mellitus, type 2 Onset Date: 07/25/18 Current Visit: No Status: Chronic Qualifiers: (4) Hypertension Onset Date: 07/25/18 Current Visit: No Status: Chronic Qualifiers: - Plan 1. Continue with IV hydration 2. Continue with IV antibiotics 3. Continue with pain control 4. NPO 5. GI consultation; 6. Serial H&H, and we will monitor CBC, BMP, LFTs and lipase along with electrolytes. 7. GI and DVT prophylaxis Discharge Plan: Home Plan to discharge in: 24 Hours - Advance Directives Does patient have a Living Will: No Does patient have a Durable POA for Healthcare: No - Code Status/Comfort Care Code Status Assessed: Yes Code Status: Full Code Critical Care: No Time Spent Managing PTS Care (In Minutes): 50
--- NOTE | 2018-10-10 11:54 | P.HP ---
Patient History Date of Service: 10/10/18 Reason for admission: Pancreatitis Allergies No Known Allergies Allergy (Unverified 07/24/18 12:56) Home Medications: Amlodipine Besylate [Norvasc] 10 mg PO DAILY 10/09/18 Lactobacillus Acidophilus [Acidophilus] 1 cap PO DAILY 10/09/18 Metoprolol Succinate [Toprol Xl*] 50 mg PO DAILY 10/09/18 Omeprazole [Prilosec] 40 mg PO DAILY 10/09/18 hydroCHLOROthiazide [Hydrochlorothiazide*] 12.5 mg PO DAILY 10/09/18 - Past Medical/Surgical History Has patient received pneumonia vaccine in the past: Yes Diabetic: No -: GERD -: Hypertension -: Obesity -: Hysterectomy Psychosocial/ Personal History: Patient is . She has 3 children. She does not work. - Family History Sister -: Diabetes - Social History Smoking Status: Never smoker Alcohol use: No CD- Drugs: No Caffeine use: No Place of Residence: Home Physical Examination - Vital Signs Temperature: 98.2 F Blood Pressure: 116/62 Pulse: 55 Respirations: 18 Pulse Ox (%): 97 - Studies Laboratory Data (last 24 hrs) 10/09/18 14:33: Creatinine 0.60 10/09/18 14:33: Sodium 142, Potassium 3.7, BUN 12, Creatinine 0.64, Glucose 122 H, Total Bilirubin 0.4, AST 241 H, ALT 137 H, Alkaline Phosphatase 131 H, Lipase 48 L 10/09/18 13:58: WBC 14.4 H, Hgb 14.0, Hct 43.7, Plt Count 247 Assessment and Plan - Problems (Diagnosis) (1) Pancreatic pseudocyst Current Visit: Yes Status: Acute (2) Pancreatitis Current Visit: Yes Status: Acute (3) GERD (gastroesophageal reflux disease) Current Visit: No Status: Chronic Qualifiers: Esophagitis presence: without esophagitis Qualified Code(s): K21.9 - Gastro -esophageal reflux disease without esophagitis (4) Hypertension Onset Date: 07/25/18 Current Visit: No Status: Chronic Qualifiers: (5) Obesity (BMI 35.0-39.9 without comorbidity) Current Visit: No Status: Chronic - Plan Pancreatitis Pancreatic pseudocyst Abdominal pain resolved at this time. Continue with IV hydration Continue IV antibiotics Start clear liquid diet, as patient tolerates. GI consulted, pending evaluation. Diabetes mellitus, type 2 Continue Accu-Cheks and mild sliding scale insulin Hypertension Stable, will continue home medications DVT prophylaxis: Lovenox GI prophylaxis: On Protonix Diet: Clear liquid diet Disposition: Pending symptomatic improvement and GI evaluation. - Advance Directives Does patient have a Living Will: No Does patient have a Durable POA for Healthcare: No
--- NOTE | 2018-10-10 12:08 | P.PN ---
Subjective Date of Service: 10/10/18 Chief Complaint: Pancreatitis Subjective: Improving Patient seen and examined at bedside. No family at bedside. Chart reviewed and case discussed with nursing staff. Patient admitted for pancreatitis and pseudocyst. Reports symptomatic improvement. Denies any abdominal pain this morning. Denies any nausea or vomiting this morning. Denies any chest pain, shortness of breath, headache, vision changes. Ambulating without any concerns. No acute events noted overnight Review of Systems 10-point ROS is otherwise unremarkable Physical Examination - Vital Signs Temperature: 98.2 F Blood Pressure: 116/62 Pulse: 55 Respirations: 18 Pulse Ox (%): 97 - Physical Exam General: Alert, In no apparent distress, Oriented x3 HEENT: Atraumatic, PERRLA, EOMI Neck: Supple, JVD not distended Respiratory: Clear to auscultation bilaterally, Normal air movement Cardiovascular: Regular rate/rhythm, Normal S1 S2 Gastrointestinal: Normal bowel sounds, No tenderness Musculoskeletal: No tenderness Integumentary: No rashes Neurological: Normal speech, Normal tone, Normal affect Lymphatics: No axilla or inguinal lymphadenopathy - Studies Laboratory Data (last 24 hrs) 10/09/18 14:33: Creatinine 0.60 10/09/18 14:33: Sodium 142, Potassium 3.7, BUN 12, Creatinine 0.64, Glucose 122 H, Total Bilirubin 0.4, AST 241 H, ALT 137 H, Alkaline Phosphatase 131 H, Lipase 48 L 10/09/18 13:58: WBC 14.4 H, Hgb 14.0, Hct 43.7, Plt Count 247 Assessment And Plan - Current Problems (Diagnosis) (1) Pancreatic pseudocyst Current Visit: Yes Status: Acute (2) Pancreatitis Current Visit: Yes Status: Acute (3) GERD (gastroesophageal reflux disease) Current Visit: No Status: Chronic Qualifiers: Esophagitis presence: without esophagitis Qualified Code(s): K21.9 - Gastro -esophageal reflux disease without esophagitis (4) Hypertension Onset Date: 07/25/18 Current Visit: No Status: Chronic Qualifiers: (5) Obesity (BMI 35.0-39.9 without comorbidity) Current Visit: No Status: Chronic - Plan Pancreatitis Pancreatic pseudocyst Abdominal pain resolved at this time. Continue with IV hydration No IV antibiotics: Patient afebrile, white count improving, stable and symptoms resolved. Start clear liquid diet, as patient tolerates. GI consulted, pending evaluation. Diabetes mellitus, type 2 Continue Accu-Cheks and mild sliding scale insulin Hypertension Stable, will continue home medications DVT prophylaxis: Lovenox GI prophylaxis: On Protonix Diet: Clear liquid diet Disposition: Pending symptomatic improvement and GI evaluation.
[2018-10-10] MEDS: ACETAMINOPHEN 500 MG TAB PO PRN (13:24)
[2018-10-10] MEDS: NA CHLORIDE 0.9% 1,000 ML IV SCH ×2 (15:37→16:25)
[2018-10-10] MEDS: AMLODIPINE 10 MG TAB PO SCH (18:03)
[2018-10-10] MEDS: hydroCHLOROthiazide 12.5 MG CAP PO SCH (18:05)
--- NOTE | 2018-10-10 19:56 | RAD REPORT ---
EXAM DESCRIPTION: MRI - Cholangiogram - 10/10/2018 7:24 pm CLINICAL HISTORY: Abdominal pain, epigastric pain, pancreatitis COMPARISON: CT October 09, MR cholangiogram July 2018 TECHNIQUE: Axial and coronal heavily T2 weighted sequences were obtained. Coronal T2 HASTE fat satur ation static and coronal multiplane reconstruction imaging generated and reviewed. Horizontal and kenia tical axis rotational views obtained using maximum intensity projection (MIP) protocol. FINDINGS: Gallbladder has been resected since the July MRCP study. No intrahepatic or extrahepati c biliary tree dilatation identified. No duct stone, stricture, mass or other filling defect of the b iliary tree. No edema signal abnormality adjacent to the pancreatic tissue. No pancreatic duct dilatation. IMPRESSION: Normal post cholecystectomy MRCP.
[2018-10-11] MEDS: NA CHLORIDE 0.9% 1,000 ML IV SCH ×4 (02:23→12:29)
[2018-10-11 06:30] LABS: Absolute Lymphocytes (CBC) 1.5 K/uL (0.7-4.9); Absolute Monocytes 0.5 K/uL (0.1-1.3); Basophils % 0.9 % (0-1.3); Eosinophils % 2.7 % (0-4.4); Hematocrit 40.9 % (36.0-45.0); Lymphocytes % 23.8 % (15.3-44.8); MPV 10.5 fL (7.6-11.3); Monocytes % 7.4 % (3.3-12.3); RBC Red Blood Cell Count 4.58 M/uL (3.86-4.86)
[2018-10-11 06:51] LABS: ALT/SGPT 169 U/L (12-78); AST/SGOT 55 U/L (15-37); Albumin 3.2 g/dL (3.4-5.0); Alkaline Phosphatase 142 U/L (45-117); BUN Blood Urea Nitrogen 9 mg/dL (7-18); Bicarbonate 28 mmol/L (21-32); Bilirubin Total 0.7 mg/dL (0.2-1.0); Glucose Level 81 mg/dL (74-106); Potassium 3.5 mmol/L (3.5-5.1); Protein, Total 6.8 g/dL (6.4-8.2); Sodium Level 140 mmol/L (136-145)
[2018-10-11] MEDS ORDERED: HOME MED 1 EA UNK (Omeprazole [Prilosec] 40 MG) PO SCH (09:00)
[2018-10-11] MEDS ORDERED: KCL 20 MEQ/100 mL IVPB 20 MEQ/100 ML BAG IV SCH (09:00)
[2018-10-11] MEDS ORDERED: HOME MED 1 EA UNK (Lactobacillus Acidophilus [Acidophilus] 1 CAP) PO SCH (09:00)
[2018-10-11] MEDS: hydroCHLOROthiazide 12.5 MG CAP PO SCH (09:47)
[2018-10-11] MEDS: PANTOPRAZOLE 40MG TABLET PO SCH (09:47)
[2018-10-11] MEDS: LACTOBACILLUS/ACIDOPHILUS TAB PO SCH (09:48)
[2018-10-11] MEDS: ENOXAPARIN 40 MG/0.4 ML SQ SCH (09:48)
[2018-10-11] MEDS: AMLODIPINE 10 MG TAB PO SCH (09:48)
[2018-10-11] MEDS: METOPROLOL XL 50 MG TAB PO SCH (09:48)
--- NOTE | 2018-10-11 11:07 | P.PN ---
Subjective Date of Service: 10/11/18 Chief Complaint: Pancreatitis Subjective: Improving Patient seen and examined at bedside. No family at bedside. Chart reviewed and case discussed with nursing staff. Patient admitted for pancreatitis and pseudocyst. Denies any abdominal pain this morning. Denies any nausea or vomiting this morning. Denies any chest pain, shortness of breath, headache, vision changes. She is Ambulating without any concerns. No acute events noted overnight Review of Systems 10-point ROS is otherwise unremarkable Physical Examination - Vital Signs Temperature: 97.2 F Blood Pressure: 137/74 Pulse: 66 Respirations: 16 Pulse Ox (%): 96 - Physical Exam General: Alert, In no apparent distress, Oriented x3 HEENT: Atraumatic, PERRLA, EOMI Neck: Supple, JVD not distended Respiratory: Clear to auscultation bilaterally, Normal air movement Cardiovascular: Regular rate/rhythm, Normal S1 S2 Gastrointestinal: Normal bowel sounds, No tenderness Musculoskeletal: No tenderness Integumentary: No rashes Neurological: Normal speech, Normal tone, Normal affect - Studies CBC stable LFTs improving Imagings Data: MRCP: Normal post cholecystectomy MRCP Medications List Reviewed: Yes Assessment And Plan - Current Problems (Diagnosis) (1) Pancreatic pseudocyst Current Visit: Yes Status: Acute (2) Pancreatitis Current Visit: Yes Status: Acute (3) GERD (gastroesophageal reflux disease) Current Visit: No Status: Chronic Qualifiers: Esophagitis presence: without esophagitis Qualified Code(s): K21.9 - Gastro -esophageal reflux disease without esophagitis (4) Hypertension Onset Date: 07/25/18 Current Visit: No Status: Chronic Qualifiers: (5) Obesity (BMI 35.0-39.9 without comorbidity) Current Visit: No Status: Chronic - Plan Pancreatitis Pancreatic pseudocyst Abdominal pain resolved at this time. Continue with IV hydration No IV antibiotics: Patient afebrile, white count improving, stable and symptoms resolved. Start clear liquid diet, advance as patient tolerates. MRCP ordered by GI, shows normal post cholecystectomy MRCP. GI consulted, recommendations appreciated. Diabetes mellitus, type 2 Continue Accu-Cheks and mild sliding scale insulin Hypertension Stable, will continue home medications DVT prophylaxis: Lovenox GI prophylaxis: On Protonix Diet: Clear liquid diet Disposition: Will discharge home in the next 24-48 hr, once tolerating an oral diet. Discharge Plan: Home Plan to discharge in: 48 Hours Time Spent Managing PTS Care (In Minutes): 35
[2018-10-11] MEDS: ACETAMINOPHEN 500 MG TAB PO PRN (16:33)
[2018-10-11] MEDS ORDERED: ALBUTEROL 2.5 MG/3 ML NEB SOL NEB PRN (17:00)
[2018-10-11 21:22] VITALS: O2SAT 98
[2018-10-12] MEDS: NA CHLORIDE 0.9% 1,000 ML IV SCH ×2 (00:59→08:25)
[2018-10-12 06:22] LABS: ALT/SGPT 125 U/L (12-78); AST/SGOT 42 U/L (15-37); Albumin 3.1 g/dL (3.4-5.0); Alkaline Phosphatase 122 U/L (45-117); BUN Blood Urea Nitrogen 12 mg/dL (7-18); Bicarbonate 27 mmol/L (21-32); Bilirubin Total 0.7 mg/dL (0.2-1.0); Glucose Level 89 mg/dL (74-106); Potassium 4.2 mmol/L (3.5-5.1); Protein, Total 6.8 g/dL (6.4-8.2); Sodium Level 143 mmol/L (136-145)
[2018-10-12 06:56] LABS: Absolute Lymphocytes (CBC) 1.4 K/uL (0.7-4.9); Absolute Monocytes 0.5 K/uL (0.1-1.3); Absolute Neutrophil 3.9 K/uL (1.8-8.0); Basophils % 0.9 % (0-1.3); Eosinophils % 2.4 % (0-4.4); Lymphocytes % 22.8 % (15.3-44.8); MPV 10.7 fL (7.6-11.3)
[2018-10-12 09:09] VITALS: BP 135/87; TEMP 97.1
[2018-10-12] MEDS: hydroCHLOROthiazide 12.5 MG CAP PO SCH (09:23)
[2018-10-12] MEDS: LACTOBACILLUS/ACIDOPHILUS TAB PO SCH (09:23)
[2018-10-12] MEDS: METOPROLOL XL 50 MG TAB PO SCH (09:23)
[2018-10-12] MEDS: ENOXAPARIN 40 MG/0.4 ML SQ SCH (09:24)
[2018-10-12] MEDS: PANTOPRAZOLE 40MG TABLET PO SCH (09:24)
[2018-10-12] MEDS: AMLODIPINE 10 MG TAB PO SCH (09:24)
--- NOTE | 2018-10-12 12:14 | P.DS ---
Admission Date: 10/09/18 Discharge Date: 10/12/18 Disposition: ROUTINE DISCHARGE Discharge Condition: GOOD Reason for Admission: Pancreatitis Consultations: Dr. Fox, GI - Problems (1) Pancreatic pseudocyst Current Visit: Yes Status: Acute (2) Pancreatitis Current Visit: Yes Status: Acute (3) GERD (gastroesophageal reflux disease) Current Visit: No Status: Chronic Qualifiers: Esophagitis presence: without esophagitis Qualified Code(s): K21.9 - Gastro -esophageal reflux disease without esophagitis (4) Hypertension Onset Date: 07/25/18 Current Visit: No Status: Chronic Qualifiers: (5) Obesity (BMI 35.0-39.9 without comorbidity) Current Visit: No Status: Chronic Brief History of Present Illness: Patient is 62-year-old female who came in the hospital with abdominal pain. Patient had epigastric tenderness. Patient also has some nausea. Patient was admitted to the hospital for further evaluation. Patient's CT scan revealed acidosis. Patient has had prior episodes in the past. Patient is admitted to the hospital for further evaluation. Hospital Course: Pancreatitis Pancreatic pseudocyst Admitted for pancreatitis and psudocyst. Kept NPO, started IVF. GI consulted. No IV antibiotics: Patient afebrile, white count improving, stable and symptoms resolved. MRCP ordered by GI, shows normal post cholecystectomy MRCP. Started slowly on CLD advanced as tolerated. Prior to discharge, pt tolerating GI soft diet. Per GI recommendations, she will need a repeat CT scan of the abdomen in 3 months to follow up on her pseudocyst. She will follow up with GI in 1-2 weeks. Prior to discharge, she was hemodynamically stable, symptom free, ambulating without concerns, tolerating a GI soft diet. She otherwise remained stable throguthout the stay. No medication changes made at discharge. Vital Signs/Physical Exam: Temp Pulse Resp BP Pulse Ox 97.1 F 80 17 135/87 97 10/12/18 08:00 10/12/18 09:24 10/12/18 08:00 10/12/18 09:24 10/12/18 08:00 General: Alert, In no apparent distress, Oriented x3 HEENT: Atraumatic, PERRLA, EOMI Neck: Supple, JVD not distended Respiratory: Clear to auscultation bilaterally, Normal air movement Cardiovascular: Regular rate/rhythm, Normal S1 S2 Gastrointestinal: Normal bowel sounds, No tenderness Musculoskeletal: No tenderness Integumentary: No rashes Neurological: Normal speech, Normal tone, Normal affect Lymphatics: No axilla or inguinal lymphadenopathy Laboratory Data at Discharge: WBC 6.0 K/uL (4.3-10.9) 10/12/18 06:46 Hgb 14.3 g/dL (12.0-15.0) 10/12/18 06:46 Hct 43.0 % (36.0-45.0) 10/12/18 06:46 Plt Count 214 K/uL (152-406) 10/12/18 06:46 Sodium 143 mmol/L (136-145) 10/12/18 05:25 Potassium 4.2 mmol/L (3.5-5.1) 10/12/18 05:25 BUN 12 mg/dL (7-18) 10/12/18 05:25 Creatinine 0.56 mg/dL (0.55-1.3) 10/12/18 05:25 Glucose 89 mg/dL (74-106) 10/12/18 05:25 Phosphorus 3.9 mg/dL (2.5-4.9) 10/10/18 05:27 Magnesium 2.4 mg/dL (1.8-2.4) 10/10/18 05:27 Total Bilirubin 0.7 mg/dL (0.2-1.0) 10/12/18 05:25 AST 42 U/L (15-37) H 10/12/18 05:25 ALT 125 U/L (12-78) H 10/12/18 05:25 Alkaline Phosphatase 122 U/L (45-117) H 10/12/18 05:25 Lipase 48 U/L (73-393) L 10/09/18 14:33 Home Medications: Amlodipine Besylate [Norvasc] 10 mg PO DAILY 10/09/18 Lactobacillus Acidophilus [Acidophilus] 1 cap PO DAILY 10/09/18 Metoprolol Succinate [Toprol Xl*] 50 mg PO DAILY 10/09/18 Omeprazole [Prilosec] 40 mg PO DAILY 10/09/18 hydroCHLOROthiazide [Hydrochlorothiazide*] 12.5 mg PO DAILY 10/09/18 Patient Discharge Instructions: Please follow up with your primary care physician in 2-3 days. Please follow up with Dr. Fox, Gastroenterology in 1- 2 weeks. You will need a repeat CT scan of your abdomen in 3 months to follow up on the pacreatic cysts. Please return to the Emergency room for worsening symptoms. Diet: Low Fat Activity: Ad jeanna Followup: Abhinav Fox MD [ASSOCIATE-ACTIVE - CAN ADMIT] - Time spent managing pt's care (in minutes): 55
--- NOTE | 2018-10-12 12:38 | P.PN ---
Subjective Date of Service: 10/12/18 Chief Complaint: Pancreatitis Subjective: Improving (No abdominal pain, N/V. Normal lipase. Tolerating advances in diet. S/p lap rory at [facility] in [place], [place] when pseudocysts likely formed. MRCP yesterday was negative.) Review of Systems 10-point ROS is otherwise unremarkable General: Weakness (Improved.) Physical Examination - Vital Signs Temperature: 97.1 F Blood Pressure: 135/87 Pulse: 80 Respirations: 17 Pulse Ox (%): 97 - Physical Exam General: Alert, In no apparent distress, Oriented x3, Cooperative HEENT: Atraumatic, Normocephalic, PERRLA, EOMI Neck: Supple Respiratory: Normal air movement Cardiovascular: Normal pulses Gastrointestinal: Soft and benign, No tenderness, No rebound, No guarding Neurological: Normal speech, Normal strength at 5/5 x4 extr - Studies Medications List Reviewed: Yes Assessment And Plan - Current Problems (Diagnosis) (1) Pancreatic pseudocyst Current Visit: Yes Status: Acute (2) Pancreatitis Current Visit: Yes Status: Acute Comment: Resolved. (3) Epigastric abdominal pain Current Visit: No Status: Acute (4) Nausea & vomiting Onset Date: 07/25/18 Current Visit: No Status: Acute (5) Diabetes mellitus, type 2 Onset Date: 07/25/18 Current Visit: No Status: Chronic Qualifiers: (6) GERD (gastroesophageal reflux disease) Current Visit: No Status: Chronic Qualifiers: Esophagitis presence: without esophagitis Qualified Code(s): K21.9 - Gastro -esophageal reflux disease without esophagitis (7) Obesity (BMI 35.0-39.9 without comorbidity) Current Visit: No Status: Chronic - Plan REC: 1) continue po diet 2) okay to discharge with GI clinic f/u in 1-2 weeks 3) if upper abdominal pain recurs with normal lipase, will check EGD
== END 2018-10-12 13:22 | disposition home or self-care (01) | DRG 439 ==
LOC: ER 11:28 → ERHOLD 17:24 → 2ND 19:47
PROVIDERS: ADMIT Family Medicine; ATTEND Family Medicine
DX: K85.90 Acute pancreatitis without necrosis or infection, unspecified (principal); K86.3 Pseudocyst of pancreas; E87.2 Acidosis; K21.9 Gastro-esophageal reflux disease without esophagitis; I10 Essential (primary) hypertension; E66.9 Obesity, unspecified; Z68.35 Body mass index [BMI] 35.0-35.9, adult; E11.9 Type 2 diabetes mellitus without complications
CPT/HCPCS: 36415; 74177; 74181; 80048; 80053; 80076; 81003; 82248; 83690; 83735; 84100; 84484; 85025; 93005; 94760; 96361; 96374; 96375; 99285; J1650; J2405; J7030; Q9967

== ENCOUNTER 2018-11-06 10:05 | Emergency (ER) | payer OTHER ==
--- OUTSIDE RECORDS SUMMARY | 2018-11-06 10:07 | XMS REPORT | Clinical Summary ---
:1955 Author Organization [facility] Address [address] [place] [id number] Care Team Providers Name Role Phone Asked, [...] ORAL Take by mouth 0 Active daily. [id number] Take by mouth 0 09/14/19 Discontinued (CREON) [...] of gallbladder without cholecystitis without obstruction after 11/05/2017 Family History Medical History Relation Name Comments [...] Taken Blood Pressure 143/73 09/13/2018 1:55 PM FUR MACHINE OPERATOR Pulse 70 09/13/2018 1:55 PM FUR MACHINE OPERATOR Temperature 37.1 C (98.8 F) 09/13/2018 1:55 PM FUR MACHINE OPERATOR Respiratory Rate 16 09/13/2018 1:55 PM FUR MACHINE OPERATOR Oxygen Saturation 95% 09/13/2018 1:55 PM FUR MACHINE OPERATOR Inhaled Oxygen Concentration - - Weight 87.1 kg (192 lb 1.6 oz) 09/13/2018 10:01 AM FUR MACHINE OPERATOR Height 157.5 cm (5' 2") 09/13/2018 10:01 AM FUR MACHINE OPERATOR Body Mass Index 35.14 09/13/2018 10:01 AM FUR MACHINE OPERATOR Plan of Treatment Health Maintenance Due Date Last Done Comments CERVICAL CANCER SCREENING 1978 BREAST CANCER SCREENING 11/05/2007 COLON CANCER SCREENING 11/05/2007 SHINGLES VACCINES (#1) 11/05/2007 INFLUENZA VACCINE 02/13/2019 Procedures Procedure Name Priority Date/Time Associated Diagnosis Comments SURGICAL PATHOLOGY Routine 09/13/2018 1:14 Results for this REQUEST PM FUR MACHINE OPERATOR procedure are in the results section. CHOLECYSTECTOMY, 09/13/2018 1:00 Symptomatic LAPAROSCOPIC PM FUR MACHINE OPERATOR cholelithiasis [place] AN ELECTIVE Routine 09/13/2018 11:22 ENDOTRACHEAL AIRWAY AM FUR MACHINE OPERATOR Procedure Note - Lakhwinder Montalvo MD - 09/13/2018 11:22 AM FUR MACHINE OPERATOR Airway Performed by: Lakhwinder Montalvo MD Authorized [...] Routine 08/30/2018 12:51 PM Results for this FUR MACHINE OPERATOR procedure are in the results section. HEPATIC FUNCTION Routine 08/30/2018 12:51 PM Preop testing Results for this PANEL FUR MACHINE OPERATOR procedure are in the results section. BASIC METABOLIC PANEL Routine 08/30/2018 12:51 PM Preop testing Results for this FUR MACHINE OPERATOR procedure are in the results section. CBC HEMOGRAM Routine 08/30/2018 12:51 PM Preop testing Results for this FUR MACHINE OPERATOR procedure are in the results section. after 11/05/2017 Results Surgical pathology request (09/13/2018 1:14 PM FUR MACHINE OPERATOR) [facility] DEPARTMENT OF PATHOLOGY AND GENOMIC MEDICINE Surgical pathology report See link below for PDF [facility] DEPARTMENT OF Lab Report PATHOLOGY AND GENOMIC MEDICINE Result status This is Final Report [facility] DEPARTMENT OF for [id number] PATHOLOGY AND GENOMIC MEDICINE Performing Organization Address City/State/Zipcode Phone Number [facility] DEPARTMENT OF PATHOLOGY AND [address] [place] [address] GENOMIC MEDICINE Estimated GFR (08/30/2018 12:51 PM FUR MACHINE OPERATOR) Estimated GFR >=90 mL/min/1.73 m2 ROBBI SHINTO Comment: HOSPITAL CatergoryUnitsInterpretation G1 >=90 Normal or high G2 60-89Mildly decreased [id number] to moderately decreased [id number] to severely decreased G4 15-29Severely decreased G5 <15Kidney failure The eGFR was calculated using the Chronic Kidney Disease Epidemiology Collaboration (CKD-EPI) equation. Interpretation is based on recommendations of the National Kidney Foundation-Kidney Disease Outcomes Quality Initiative (NKF-KDOQI) published in 2014. Specimen Plasma specimen Performing Organization Address City/[facility]/Zipcode Phone Number [facility] DEPARTMENT OF PATHOLOGY AND [address] [place], [place] [id number] [place] [phone] CBC hemogram (08/30/2018 12:51 PM FUR MACHINE OPERATOR) WBC 6.73 4.50 - 11.00 k/uL [facility] RBC 4.53 4.20 - 5.50 m/uL [facility] HGB 13.5 12.0 - 16.0 g/dL [facility] HCT 41.9 37.0 - 47.0 % [facility] MCV 92.5 82.0 - 100.0 fL [facility] MCH 29.8 27.0 - 34.0 pg [facility] MCHC 32.2 31.0 - 37.0 g/dL [facility] RDW - SD 43.5 37.0 - 55.0 fL [facility] MPV 12.6 8.8 - 13.2 fL [facility] Platelet count 241 150 - 400 k/uL [facility] Nucleated RBC 0.00 /100 WBC [facility] Specimen Blood Performing Organization Address City/[facility] Phone Number [facility] DEPARTMENT OF PATHOLOGY AND [address] [place] [address] [address] Hepatic function panel (08/30/2018 12:51 PM FUR MACHINE OPERATOR) Albumin 3.6 3.5 - 5.0 g/dL [facility] Total bilirubin 0.3 0.0 - 1.2 mg/dL [facility] Bilirubin direct <0.2 0.0 - 0.3 mg/dL [facility] Alkaline phosphatase 96 35 - 104 U/L [facility] Protein 7.5 6.3 - 8.3 g/dL [facility] Comment: [place] 4.6-7.0 g/dL 1 week 4.4-7.6 g/dL 7 months-1year5.1-7.3 g/dL 1-2 years5.6-7.5 g/dL >3 years6.0-8.0 g/dL 18-150 6.3-8.3 g/dL ALT 30 5 - 50 U/L [facility] AST 25 10 - 35 U/L [facility] Specimen Plasma specimen Performing Organization Address City/[facility]/Zipcode Phone Number [facility] DEPARTMENT OF PATHOLOGY AND [address] [place] [address] Basic metabolic panel (08/30/2018 12:51 PM FUR MACHINE OPERATOR) Sodium 142 135 - 148 mEq/L [facility] Potassium 3.3 (L) 3.5 - 5.0 mEq/L [facility] Chloride 100 98 - 112 mEq/L [facility] CO2 28 24 - 31 mEq/L [facility] Anion gap 14@ANIO 7 - 15 mEq/L [facility] BUN 9 8 - 23 mg/dL [facility] Creatinine 0.52 0.50 - 0.90 mg/dL [facility] Glucose 93 65 - 99 mg/dL [facility] Calcium 9.8 8.8 - 10.2 mg/dL [facility] Specimen Plasma specimen Performing Organization Address City/[facility]ode Phone Number [facility] DEPARTMENT OF PATHOLOGY AND [address] [place] [phone] after 11/05/2017 Insurance Payer Benefit Plan / Group Subscriber ID Type Phone Address [employer] OPEN ACCESS/NETWORK xxxxxxxxxxx O Advance Directives Patient has advance care planning documents on file. For more information, please contact:[address] [address]
[2018-11-06 10:39] LABS: Absolute Lymphocytes (CBC) 1.9 K/uL (0.7-4.9); Absolute Monocytes 0.6 K/uL (0.1-1.3); Absolute Neutrophil 5.8 K/uL (1.8-8.0); Basophils % 0.4 % (0-1.3); Eosinophils % 1.8 % (0-4.4); Hematocrit 43.4 % (36.0-45.0); Lymphocytes % 22.3 % (15.3-44.8); MPV 10.8 fL (7.6-11.3); Monocytes % 6.7 % (3.3-12.3); RBC Red Blood Cell Count 4.92 M/uL (3.86-4.86)
[2018-11-06] MEDS ORDERED: MEPERIDINE HCL 25 MG/0.5 ML ONE (10:53)
[2018-11-06] MEDS ORDERED: ONDANSETRON 4 MG/2 ML VIAL ONE (10:54)
[2018-11-06 11:14] LABS: ALT/SGPT 37 U/L (12-78); AST/SGOT 22 U/L (15-37); Albumin 3.9 g/dL (3.4-5.0); Alkaline Phosphatase 120 U/L (45-117); BUN Blood Urea Nitrogen 12 mg/dL (7-18); Bicarbonate 32 mmol/L (21-32); Bilirubin Direct 0.1 mg/dL (0-0.2); Bilirubin Total 0.5 mg/dL (0.2-1.0); Glucose Level 97 mg/dL (74-106); Lipase 45 U/L (73-393); Potassium 3.2 mmol/L (3.5-5.1); Protein, Total 8.1 g/dL (6.4-8.2); Sodium Level 140 mmol/L (136-145)
[2018-11-06 11:21] LABS: Urine Blood TRACE (NEG); Urine Glucose NEGATIVE (NEG); Urine Protein NEGATIVE (NEG); Urine Specific Gravity 1.015 (1.005-1.030); Urine pH 7.5 (5.0-7.0)
[2018-11-06] MEDS ORDERED: LIDOCAINE VISCOUS 2% SOLN 15 ML UDC ONE (11:47)
[2018-11-06] MEDS ORDERED: MAGNE/ALUM HYDROXD 30 ML UCUP ONE (11:47)
--- NOTE | 2018-11-06 11:50 | EDPHYS ---
[facility] Jeannine Michele Age: 63 yrs Sex: Female : 1955 Arrival Date: 11/06/2018 Time: 10:09 Bed 14 Private MD: ED Physician Stephon Bowden HPI: 11/06 10:20 This 63 yrs old Female presents to ER via Unassigned with complaints of jr8 Abdominal Pain. 10:20 The patient presents with abdominal pain in the epigastric area. Onset: The jr8 symptoms/episode began/occurred acutely, this morning. The symptoms do not radiate. Associated signs and symptoms: Pertinent positives: nausea. The symptoms are described as stabbing. Modifying factors: The symptoms are alleviated by nothing, the symptoms are aggravated by nothing. Severity of pain: At its worst the pain was moderate in the emergency department the pain is unchanged. It is unknown whether or not the patient has had similar symptoms in the past. The patient has not recently seen a physician. History of pancreatitis and gallbladder removal a few months ago. Was eating nachos with cheese last night. Started with pain early this morning . Historical: - Allergies: 10:25 No Known Allergies; ss - PMHx: 10:25 Hypertension; Pancreatitis; ss - PSHx: 10:25 Cholecystectomy; ss - Immunization history:: Adult Immunizations up to date. - Social history:: Smoking status: Patient/guardian denies using tobacco. - Ebola Screening: : Patient denies exposure to infectious person Patient denies travel to an Ebola-affected area in the 21 days before illness onset. ROS: 10:20 Eyes: Negative for injury, pain, redness, and discharge, ENT: Negative for injury, jr8 pain, and discharge, Neck: Negative for injury, pain, and swelling, Cardiovascular: Negative for chest pain, palpitations, and edema, Respiratory: Negative for shortness of breath, cough, wheezing, and pleuritic chest pain, Back: Negative for injury and pain, MS/Extremity: Negative for injury and deformity, Skin: Negative for injury, rash, and discoloration, Neuro: Negative for headache, weakness, numbness, tingling, and seizure. 10:20 Abdomen/GI: Positive for abdominal pain, nausea, Negative for vomiting, diarrhea, abdominal distension, anorexia, dysphagia, hematemesis, black/tarry stool, rectal pain, rectal bleeding, bowel incontinence, flatulence. Exam: 10:20 Eyes: Pupils equal round and reactive to light, extra-ocular motions intact. Lids and jr8 lashes normal. Conjunctiva and sclera are non-icteric and not injected. Cornea within normal limits. Periorbital areas with no swelling, redness, or edema. ENT: Nares patent. No nasal discharge, no septal abnormalities noted. Tympanic membranes are normal and external auditory canals are clear. Oropharynx with no redness, swelling, or masses, exudates, or evidence of obstruction, uvula midline. Mucous membranes moist. Neck: Trachea midline, no thyromegaly or masses palpated, and no cervical lymphadenopathy. Supple, full range of motion without nuchal rigidity, or vertebral point tenderness. No Meningismus. Cardiovascular: Regular rate and rhythm with a normal S1 and S2. No gallops, murmurs, or rubs. Normal PMI, no JVD. No pulse deficits. Respiratory: Lungs have equal breath sounds bilaterally, clear to auscultation and percussion. No rales, rhonchi or wheezes noted. No increased work of breathing, no retractions or nasal flaring. Back: No spinal tenderness. No costovertebral tenderness. Full range of motion. Skin: Warm, dry with normal turgor. Normal color with no rashes, no lesions, and no evidence of cellulitis. MS/ Extremity: Pulses equal, no cyanosis. Neurovascular intact. Full, normal range of motion. Neuro: Awake and alert, GCS 15, oriented to person, place, time, and situation. Cranial nerves II-XII grossly intact. Motor strength 5/5 in all extremities. Sensory grossly intact. Cerebellar exam normal. Normal gait. 10:20 Abdomen/GI: Inspection: abdomen appears normal, Bowel sounds: active, all quadrants, Palpation: soft, in all quadrants, moderate abdominal tenderness, in the epigastric area, mass, is not appreciated, rebound tenderness, is not appreciated, voluntary guarding, is elicited in the epigastric area, involuntary guarding, is not appreciated, no appreciated organomegaly, Indicators: McBurney's point is not tender, Carrera's sign is negative, Rovsing's sign is negative, Liver: tenderness, is not appreciated. 11:34 ECG was reviewed by the Attending Physician. jr8 Vital Signs: 10:25 BP 140 / 92; Pulse 77; Resp 16; Temp 98.3(O); Pulse Ox 97% on R/A; Weight 86.64 kg; ss Height 5 ft. 11 in. (180.34 cm); Pain 7/10; 11:30 BP 124 / 75; Pulse 62; Resp 18; Pulse Ox 95% on R/A; aj1 12:30 BP 124 / 73; Pulse 61; Resp 18; Pulse Ox 100% on R/A; aj1 10:25 Body Mass Index 26.64 (86.64 kg, 180.34 cm) ss MDM: 10:13 Patient medically screened. jr8 11:46 Differential diagnosis: gastritis, gastroesophageal reflux disease, GI Bleed, jr8 Hepatitis, Mesenteric ischemia or infarction, myocardia ischemia or infarction, non-specific abd pain, pancreatitis, Peptic Ulcer Disease, Perf. Duodenal Ulcer, Perf. Gastric Ulcer. Data reviewed: vital signs, nurses notes, lab test result(s), and as a result, I will discharge patient. Data interpreted: Pulse oximetry: on room air is 97 %. Interpretation: normal. 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 Response to treatment: the patient's symptoms have markedly improved after treatment. ED course: Patient feeling much better after pain medicine and GI cocktail. Counseled on diet. If worse to come back. Patient good with plan . 11/06 10:20 Order name: Basic Metabolic Panel [facility] 11/06 10:20 Order name: CBC with Diff 11/06 10:20 Order name: Creatinine for Radiology; Complete Time: 11:20 [facility] 11/06 10:20 Order name: Hepatic Function; Complete Time: 11:20 [facility] 11/06 10:20 Order name: Lipase; Complete Time: 11:20 [facility] 11/06 10:20 Order name: Basic Metabolic Panel; Complete Time: 11:20 EDIL 11/06 10:20 Order name: IV Saline Lock; Complete Time: 10:39 11/06 10:20 Order name: Labs collected and sent; Complete Time: 10:39 jr8 11/06 10:21 Order name: CBC with Automated Diff; Complete Time: 10:43 EDMS 11/06 10:43 Order name: Urine Dipstick--Ancillary (enter results); Complete Time: 11:32 bd 11/06 11:20 Order name: EKG; Complete Time: 11:21 jr8 11/06 11:20 Order name: EKG - Nurse/Tech; Complete Time: 11:39 jr8 EC:34 Rate is 61 beats/min. Rhythm is regular, Normal Sinus Rhythm. QRS [place] is Normal. [place] jr8 interval is normal at 120 msec. QRS interval is normal at 86 msec. QT interval is normal at 430 msec. No Q waves. T waves are Inverted in leads III, V1, V2. T waves are Flattened in leads aVF, V3, V4, V5, V6. No ST changes noted. Clinical impression: NSR w/ Non-specific ST/T Changes. Interpreted by me. Reviewed by me. Administered Medications: 10:46 Drug: Zofran 4 mg Route: IVP; Site: right antecubital; aj1 12:43 Follow up: Response: No adverse reaction; Nausea is decreased aj1 10:46 Drug: Demerol 25 mg Route: IVP; Site: right antecubital; aj1 12:43 Follow up: Response: No adverse reaction; Pain is decreased aj1 11:39 Drug: GI Cocktail without - (Maalox Suspension 30 ml, Lidocaine Liquid 2 % 15 aj1 ml) Route: PO; 12:43 Follow up: Response: No adverse reaction aj1 Disposition: 15:21 Co-signature as Attending Physician, Stephon Bowden MD I agree with the assessment and marlin plan of care. Disposition: 11/06/18 11:50 Discharged to Home. Impression: Gastritis, unspecified. - Condition is Stable. - Discharge Instructions: Gastritis, Adult. - Medication Reconciliation Form, Thank You Letter, Antibiotic Education, Prescription Opioid Use form. - Follow up: Evie Swain MD; When: 5 - 6 days; Reason: Recheck today's complaints, Continuance of care, Re-evaluation by your physician. - Problem is new. - Symptoms have improved. Signatures: Dispatcher [employer] [facility] Charmaine Mac RN RN aj1 Stephon Bowden MD MD cha Smirch, Shelby, RN RN Robert Ceja PA PA jr8 Corrections: (The following items were deleted from the chart) 12:44 11:50 11/06/2018 11:50 Discharged to Home. Impression: Gastritis, unspecified. aj1 Condition is Stable. Forms are Medication Reconciliation Form, Thank You Letter, Antibiotic Education, Prescription Opioid Use. Follow up: Evie Swain; When: 5 - 6 days; Reason: Recheck today's complaints, Continuance of care, Re-evaluation by your physician. Problem is new. Symptoms have improved. jr8
--- NOTE | 2018-11-06 11:50 | ER ---
Nurse's Notes [facility] Name: Jeannine Michele Age: 63 yrs Sex: Female : 1955 Arrival Date: 11/06/2018 Time: 10:09 Bed 14 Private MD: Diagnosis: Gastritis, unspecified Presentation: 11/06 10:08 Presenting complaint: Patient states: epigastric discomfort, N/V that began at 0200 ss this morning. Pt reports she has a history of pancreatitis and this feels similar. Transition of care: patient was not received from another setting of care. Onset of symptoms was November 06, 2018. Risk Assessment: Do you want to hurt yourself or someone else? Patient reports no desire to harm self or others. Initial Sepsis Screen: Does the patient meet any 2 criteria? No. Patient's initial sepsis screen is negative. Does the patient have a suspected source of infection? No. Patient's initial sepsis screen is negative. Care prior to arrival: None. 10:08 Method Of Arrival: Ambulatory ss 10:08 Acuity: MJ 3 ss Historical: - Allergies: 10:25 No Known Allergies; ss - PMHx: 10:25 Hypertension; Pancreatitis; ss - PSHx: 10:25 Cholecystectomy; ss - Immunization history:: Adult Immunizations up to date. - Social history:: Smoking status: Patient/guardian denies using tobacco. - Ebola Screening: : Patient denies exposure to infectious person Patient denies travel to an Ebola-affected area in the 21 days before illness onset. Screenin:46 Abuse screen: Denies threats or abuse. Denies injuries from another. Nutritional aj1 screening: No deficits noted. Tuberculosis screening: No symptoms or risk factors identified. 12:44 Fall Risk None identified. aj1 Assessment: 10:46 General: Appears in no apparent distress. uncomfortable, Behavior is calm, cooperative, aj1 appropriate for age. Pain: Complains of pain in epigastric area. Neuro: Level of Consciousness is awake, alert, obeys commands, Oriented to person, place, time, situation. Cardiovascular: Patient's skin is warm and dry. Respiratory: Airway is patent Respiratory effort is even, unlabored, Respiratory pattern is regular, symmetrical. GI: Abdomen is non-distended, Bowel sounds present X 4 quads. Abd is soft X 4 quads Reports nausea, vomiting. : No signs and/or symptoms were reported regarding the genitourinary system. EENT: No signs and/or symptoms were reported regarding the EENT system. Derm: No signs and/or symptoms reported regarding the dermatologic system. Skin is pink, warm \T\ dry. normal. Musculoskeletal: No signs and/or symptoms reported regarding the musculoskeletal system. Circulation, motion, and sensation intact. 11:45 Reassessment: Patient appears in no apparent distress at this time. No changes from aj1 previously documented assessment. Patient and/or family updated on plan of care and expected duration. Pain level reassessed. Patient is alert, oriented x 3, equal unlabored respirations, skin warm/dry/pink. 12:41 Reassessment: Patient appears in no apparent distress at this time. No changes from aj1 previously documented assessment. Patient and/or family updated on plan of care and expected duration. Pain level reassessed. Patient is alert, oriented x 3, equal unlabored respirations, skin warm/dry/pink. Vital Signs: 10:25 BP 140 / 92; Pulse 77; Resp 16; Temp 98.3(O); Pulse Ox 97% on R/A; Weight 86.64 kg; ss Height 5 ft. 11 in. (180.34 cm); Pain 7/10; 11:30 BP 124 / 75; Pulse 62; Resp 18; Pulse Ox 95% on R/A; aj1 12:30 BP 124 / 73; Pulse 61; Resp 18; Pulse Ox 100% on R/A; aj1 10:25 Body Mass Index 26.64 (86.64 kg, 180.34 cm) ED Course: 10:09 Patient arrived in ED. mr 10:12 Robert Ceja PA is PHCP. jr8 10:13 Robert Ceja PA is PHCP. jr8 10:13 Stephon Bowden MD is Attending Physician. jr8 10:20 Charmaine Mac RN is Primary Nurse. aj1 10:23 Triage completed. ss 10:25 Arm band placed on right wrist. ss 10:28 Initial lab(s) drawn, by il, sent to lab. Urine collected: clean catch specimen, clear. dh3 Inserted saline lock: 20 gauge in right antecubital area, using aseptic technique. Blood collected. 10:46 Patient has correct armband on for positive identification. aj1 10:46 No provider procedures requiring assistance completed. aj1 11:42 EKG done, by certified medical technician. reviewed by Robert AHUJA. dt2 11:49 Evie Swain MD is Referral Physician. jr8 12:43 IV discontinued, intact, bleeding controlled, No redness/swelling at site. Pressure aj1 dressing applied. Administered Medications: 10:46 Drug: Zofran 4 mg Route: IVP; Site: right antecubital; aj1 12:43 Follow up: Response: No adverse reaction; Nausea is decreased aj1 10:46 Drug: Demerol 25 mg Route: IVP; Site: right antecubital; aj1 12:43 Follow up: Response: No adverse reaction; Pain is decreased aj1 11:39 Drug: GI Cocktail without - (Maalox Suspension 30 ml, Lidocaine Liquid 2 % 15 aj1 ml) Route: PO; 12:43 Follow up: Response: No adverse reaction aj1 Outcome: 11:50 Discharge ordered by . jr8 12:44 Discharged to home ambulatory. aj1 12:44 Condition: good 12:44 Discharge instructions given to patient, Instructed on discharge instructions, follow up and referral plans. Demonstrated understanding of instructions, follow-up care. 12:44 Patient left the ED. aj1 Signatures: Charmaine Mac, RN MARYCRUZ aj1 Doreen [place], RN Robert Gann PA PA jr8 Marni Francis [facility] Susy Interiano dt2
[2018-11-06 12:50] VITALS: TEMP 98.3
[2018-11-06 12:52] VITALS: BP 124/73; O2SAT 100
--- NOTE | 2018-11-06 15:29 | EKG ---
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
== END 2018-11-06 12:44 | disposition home or self-care (01) ==
LOC: ER 10:05
DX: K29.70 Gastritis, unspecified, without bleeding (principal)
CPT/HCPCS: 36415; 80048; 80076; 81003; 83690; 85025; 93005; 96374; 96375; 99284; J2175; J2405